=== PATIENT | female | born 1945 | race Caucasian/White ===

== ENCOUNTER 2017-05-26 18:26 | Emergency (ER) | payer MEDICARE, SELFPAY | END 2017-05-26 22:50 | disposition home or self-care (01) | PROVIDERS: Emergency Provider Emergency Medicine; Family Provider Internal Medicine Adolescent Medicine; Visit Provider Emergency Medicine | DX: R07.9 Chest pain, unspecified (principal); R91.8 Other nonspecific abnormal finding of lung field; I25.2 Old myocardial infarction; I10 Essential (primary) hypertension; Z87.891 Personal history of nicotine dependence; I25.10 Atherosclerotic heart disease of native coronary artery without angina pectoris; J44.9 Chronic obstructive pulmonary disease, unspecified; F41.9 Anxiety disorder, unspecified; Z88.0 Allergy status to penicillin; Z79.899 Other long term (current) drug therapy | CPT/HCPCS: 71020; 71275; 80053; 82150; 82550; 82553; 83690; 83880; 84436; 84443; 84479; 84484; 85025; 85378; 93005; 93041; 96365; 96372; 96375; 96376; 99285; J2405 ==

== ENCOUNTER → 2017-06-29 14:32 | Outpatient (POV) | payer MEDICARE, SELFPAY ==
[2017-07-02 20:18] LABS: Blastomyces Antibody Negative (Neg:<1:1)
[2017-07-03 20:17] LABS: Aspergillus flavus Negative (Neg:<1:1); Aspergillus fumigatus Negative (Neg:<1:1)
[2017-07-04 19:21] LABS: Aspergillus niger Negative (Neg:<1:1)
== END ==
PROVIDERS: Family Provider Internal Medicine Adolescent Medicine; PCP Internal Medicine Adolescent Medicine; Visit Provider Internal Medicine
DX: R91.1 Solitary pulmonary nodule (principal)
CPT/HCPCS: 36415; 86171

== ENCOUNTER 2017-08-02 19:44 | Emergency (ER) | payer MEDICARE, SELFPAY ==
[2017-08-02 19:45] VITALS: BP 158/63; PULSE 58; RESP 18; TEMP 36.8; O2SAT 98; BMI 39.4
--- NOTE | 2017-08-02 19:58 | XR_ITS ---
XR chest 2V HISTORY: Shortness of breath ITS.REASON: sob ORDERING PHYSICIAN: Desean Gallegos MD PATIENT AGE: 72 years COMPARISON: 05/26/2017 FINDINGS: The cardiomediastinal silhouette and pulmonary vascularity are within normal limits. COPD. Biapical fibrotic change. No lobar consolidation or collapse.. Degenerative change thoracic spine IMPRESSION: COPD. No change with no acute finding.
[2017-08-02 20:34] LABS: Basophils # 0.1 K/mm3 (0-0.2); Basophils % 0.6 % (0.1-2.0); Eosinophils # 0.5 K/mm3 (0.0-0.4); Eosinophils % 5.1 % (0.1-12.0); Hematocrit 43.8 % (37.0-47.0); Hemoglobin 13.2 g/dL (12.2-16.2); Lymphocytes % 29.7 K/mm3 (10-50); Mean Corpuscular HGB Conc 30.2 g/dL (31.8-35.4); Mean Corpuscular Hemoglobin 24.8 pg (27.0-31.2); Mean Corpuscular Volume 82.1 fl (81-99); Mean Platelet Volume 8.6 fl (7.4-10.4); Monocytes # 0.6 K/mm3 (0.1-1.0); Monocytes % 5.4 % (1.7-9.3); Neutrophils # 6.1 K/mm3 (1.8-7.8); Neutrophils % 59.4 % (37.0-80.0); Platelet Count 167 K/mm3 (142-424); Red Blood Count 5.33 M/mm3 (4.20-5.40); Red Cell Distribution Width 13.6 % (11.5-17.5); White Blood Count 10.3 K/mm3 (4.8-10.8)
[2017-08-02 20:37] LABS: Anion Gap 8.9 mEq/L (5-15); Blood Urea Nitrogen 15 mg/dL (7-18); Carbon Dioxide 35 mmol/L (21.0-32.0); Chloride 102 mmol/L (98-107); Creatinine Clearance Estimated 69 mL/min (0-300); Creatinine,Serum 0.68 mg/dL (0.55-1.02); Estimated Glomerular Filt Rate 85 ml/min (>60); GFR (African American) 103 ML/MIN (>60); Glucose 98 mg/dL (74-106); Potassium 3.9 mmoL/L (3.5-5.1); Sodium 142 mmol/L (136-145)
--- NOTE | 2017-08-02 20:38 | [facility].EDCP ---
ED Disposition Clinical Impression: Adenocarcinoma of right lung, stage 1 Chest pain Qualifiers: Chest pain type: unspecified Qualified Code(s): R07.9 - Chest pain, unspecified Disposition: Xfer Short-Term Hosp Condition on Discharge: Good Forms: Transfer Record - ED Time of Disposition: 23:40 - Critical Care Critical Care Time: No Attestation: On 08/02/17, the high probability of a clinically significant, sudden or life threatening deterioration of the following system(s) required my full and direct attention, intervention and personal management. The time I documented below is in addition to time spent performing reported procedures but includes the following listed in this critical care notation. Medical Decision Making - Medical Records Medical records reviewed: Yes: I reviewed the patient's medical records. Vital Signs: 08/02/17 19:45 08/02/17 20:45 08/02/17 22:00 Temperature 98.2 F Temperature Source Oral Pulse Rate [Right Radial] 58 L 57 L 65 Respiratory Rate 18 Blood Pressure [Right Arm] 158/63 137/66 132/70 Blood Pressure Mean [Right Arm] 94 89 90 Blood Pressure Source [Right Arm] Automatic Cuff Automatic Cuff Automatic Cuff Blood Pressure Position [Right Arm] Sitting 02 Sat by Pulse Oximetry 98 96 98 Oxygen Delivery Method Nasal Cannula Oxygen Flow Rate (LPM) 2 - Lab Data Lab results reviewed: Yes: I reviewed the patient's lab results. Lab Results 08/02/17 19:50: WBC 10.3, RBC 5.33, Hgb 13.2, Hct 43.8, MCV 82.1, MCH 24.8 L, MCHC 30.2 L, RDW 13.6, Plt Count 167, MPV 8.6, Neut % (Auto) 59.4, Lymph % (Auto) 29.7, [place] % (Auto) 5.4, Eos % (Auto) 5.1, Baso % (Auto) 0.6, Neut # (Auto) 6.1, Lymph # (Auto) 3.0, [place] # (Auto) 0.6, Eos # (Auto) 0.5 H, Baso # (Auto) 0.1 08/02/17 19:50: Sodium 142, Potassium 3.9, Chloride 102, Carbon Dioxide 35 H, Anion Gap 8.9, BUN 15, Creatinine 0.68, Estimated Creat Clear 69, Estimated GFR 85, Est GFR ( Amer) 103, Glucose 98 08/02/17 19:50: Lactic Acid 0.6 08/02/17 19:50: Total Creatine Kinase 82, CK-MB (CK-2) 1.1, CK-MB (CK-2) Rel Index 1.3, Troponin I < 0.02 08/02/17 23:03: Total Creatine Kinase 67, CK-MB (CK-2) 1.0, CK-MB (CK-2) Rel Index 1.5, Troponin I < 0.02 Result diagrams: 08/02/17 19:50 08/02/17 19:50 Orders (Tests/Meds): ED MEDICATIONS Discontinued Medications Generic Name Dose Route Start Last Admin Trade Name Freq PRN Reason Stop Dose Admin Albuterol/Ipratropium 3 ml 08/02/17 19:58 08/02/17 20:07 Duoneb 3ml Neb IH 08/02/17 19:59 3 ml ONCE ONE Administration Aspirin 324 mg 08/02/17 19:57 08/02/17 20:00 Aspirin 81mg Chewable Tablet PO 08/02/17 19:58 324 mg ONCE ONE Administration Methylprednisolone Sodium Succinate 125 mg 08/02/17 19:58 08/02/17 20:07 Solu-Medrol 125mg/2ml Vial IV 08/02/17 19:59 125 mg ONCE ONE Administration ORDERS Category Date Time Status Blood Culture Stat Micro 08/02/17 19:50 Received - Radiology Data #1 Image(s): Chest Image Reviewed: Yes I reviewed the patient's radiology image right lung mass c/w tumor - ECG Data Tracing #1 I reviewed this ECG and interpreted as documented below: ECG normal with no acute: arrhythmias, ischemia, conduction abnormalities, chamber hypertrophy Normal Sinus Rhythm: Yes - Morgan Inquiry Pt receiving controlled substance: No - Reevaluation(s) Time: 23:30 Reevaluation #1: case d/w Dr Angeles, [facility], advise of patient's presentation and findings, need to start radiation therapy at [facility] tomorrow morning. Dr. Angeles agreeable with transfer, patient is medically stable at this time. Chest Pain HPI - General Chief Complaint: Chest Pain Stated Complaint: chest pain Mode of Arrival: Ambulatory Limitations: No Limitations Description of Symptoms (Recalled from ER Triage Doc. by RN): chest pain, cough, oxygen - History of Present Illness HPI narrative: This i
[2017-08-02 20:45] VITALS: BP 137/66; PULSE 57; O2SAT 96
[2017-08-02 20:46] LABS: Lactic Acid 0.6 mmol/L (0.4-2.0)
[2017-08-02 22:00] VITALS: BP 132/70; PULSE 65; O2SAT 98
[2017-08-02 22:12] LABS: CKMB Relative Index 1.3 U/L (0-4.0); Creatine Kinase 82 U/L (26-192); Creatine Kinase MB 1.1 mg/ml (0.0-3.6)
[2017-08-02 22:13] LABS: Troponin I < 0.02 ng/ml (0.00-0.06)
[2017-08-03 00:16] LABS: CKMB Relative Index 1.5 U/L (0-4.0); Creatine Kinase 67 U/L (26-192); Troponin I < 0.02 ng/ml (0.00-0.06)
--- NOTE | 2017-08-03 01:39 | PC.NURSE ---
REPORT CALLED TO ROBERT JOLLY, RECEIVING RN AT ED. PT PENDING TRANSFER UPON [facility].
[2017-08-03 02:20] VITALS: BP 138/78; PULSE 98; RESP 22; TEMP 36.1; O2SAT 96
== END 2017-08-03 02:20 | disposition short-term general hospital (02) ==
PROVIDERS: Emergency Medicine; Emergency Provider Emergency Medicine; Family Provider Internal Medicine Adolescent Medicine; PCP Internal Medicine Adolescent Medicine
DX: C34.91 Malignant neoplasm of unspecified part of right bronchus or lung (principal); J44.9 Chronic obstructive pulmonary disease, unspecified; Z99.81 Dependence on supplemental oxygen; I25.10 Atherosclerotic heart disease of native coronary artery without angina pectoris; I10 Essential (primary) hypertension; E78.5 Hyperlipidemia, unspecified; Z95.5 Presence of coronary angioplasty implant and graft; F17.210 Nicotine dependence, cigarettes, uncomplicated; Z79.82 Long term (current) use of aspirin; Z79.899 Other long term (current) drug therapy; Z88.0 Allergy status to penicillin; Z88.2 Allergy status to sulfonamides
CPT/HCPCS: 36415; 71046; 80048; 82550; 82553; 83605; 84484; 85025; 87040; 93005; 96374; 99284

== ENCOUNTER → 2017-08-27 16:40 | Outpatient (CLI) | payer MEDICARE, SELFPAY ==
--- NOTE | 2017-08-27 16:51 | XR_ITS ---
XR chest 2V HISTORY: ITS.REASON: COPD, SHORTNESS OF BREATH ORDERING PHYSICIAN: Mariola Son PATIENT AGE: 72 years COMPARISON: 08/02/2017 FINDINGS: Unremarkable cardiovascular structures. A 15 mm nodules present in the right lung base corresponding to the nodule seen on recent scan of 05/26/2017. There are some patchy density in the left lung base in the retrocardiac region may be due to an area of atelectasis or infiltrate. Chronic changes are present with hyperinflation.. IMPRESSION: 1. Suspicious 15 mm nodule in the right middle lobe. 2. Atelectasis or infiltrate in the left lung base
[2017-08-27 17:04] LABS: Basophils # 0.1 K/mm3 (0-0.2); Basophils % 0.8 % (0.1-2.0); Eosinophils # 0.4 K/mm3 (0.0-0.4); Hematocrit 42.1 % (37.0-47.0); Lymphocytes # 1.4 K/mm3 (0.7-4.5); Lymphocytes % 19.8 K/mm3 (10-50); Mean Corpuscular HGB Conc 30.9 g/dL (31.8-35.4); Mean Platelet Volume 11.4 fl (7.4-10.4); Monocytes # 0.3 K/mm3 (0.1-1.0); Monocytes % 4.6 % (1.7-9.3); Neutrophils # 4.9 K/mm3 (1.8-7.8); Neutrophils % 68.7 % (37.0-80.0); Platelet Count 212 K/mm3 (142-424); White Blood Count 7.1 K/mm3 (4.8-10.8)
[2017-08-27 18:28] LABS: Alanine Aminotransferase 31 U/L (12-78); Albumin Level 3.6 gm/dL (3.4-5.0); Albumin/Globulin Ratio 1.2 (1.1-1.8); Alkaline Phosphatase 101 U/L (46-116); Anion Gap 11.3 mEq/L (5-15); Aspartate Amino Transferase 18 U/L (15-37); Bilirubin,Total 0.5 mg/dL (0.2-1.0); Blood Urea Nitrogen 16 mg/dL (7-18); Calcium 8.9 mg/dL (8.5-10.1); Carbon Dioxide 30 mmol/L (21.0-32.0); Chloride 99 mmol/L (98-107); Creatinine,Serum 0.49 mg/dL (0.55-1.02); Estimated Glomerular Filt Rate 124 ml/min (>60); GFR (African American) 150 ML/MIN (>60); Glucose 90 mg/dL (74-106); Potassium 4.3 mmoL/L (3.5-5.1); Sodium 136 mmol/L (136-145); Total Protein,Serum 6.6 gm/dL (6.4-8.2)
== END ==
PROVIDERS: PCP Internal Medicine Adolescent Medicine; Visit Provider Nurse Practitioner Family
DX: J44.1 Chronic obstructive pulmonary disease with (acute) exacerbation (principal); R06.02 Shortness of breath
CPT/HCPCS: 36415; 71046; 80053; 85025

== ENCOUNTER → 2017-10-01 09:58 | Outpatient (CLI) | payer MEDICARE, SELFPAY ==
[2017-10-01 10:58] VITALS: PULSE 49; PULSE 50
== END ==
PROVIDERS: Family Provider Internal Medicine Adolescent Medicine; PCP Internal Medicine Adolescent Medicine; Visit Provider Internal Medicine Adolescent Medicine
DX: J44.9 Chronic obstructive pulmonary disease, unspecified (principal)
CPT/HCPCS: 94060; 94640; 94726; 94729

== ENCOUNTER → 2017-10-09 07:44 | Outpatient (CLI) | payer MEDICARE, SELFPAY ==
--- NOTE | 2017-10-09 07:44 | CA_ITS ---
PROCEDURE: 2-D M-mode and color Doppler study INDICATIONS FOR THE TEST: Chest pain COPD Heart Murmur Tobacco Smoking Palpitations Fatigue Syncope Edema Hypertension+Diabetes Mellitus Rheumatic Fever SOB+LUNSFORD Obesity+Hyperlipidemia+ Family History HD Additional History PRE-OP LUNG CA, HOME O2, S/P RADIATION PATIENT INFORMATION HEIGHT: 68 WEIGHT:193 GENDER: Female B/P:126/56 2-D/M-MODE INTERPRETATION: 2-D MEASUREMENTS OBSERVED VALUES IN CMS Right Ventricular Dimension (RVDd) 2.4 Interventricular Septum (Thickness)(IVsd) 1.6 Left Ventricular Internal Dimensions(LVIDd) 4.2 Left Ventricular Posterior Wall (Thickness)(LVPWd) 1.3 Aortic Root 3.3 Aortic Cusp Separation 1.8 Left Atrial Dimensions (LAD) 4.3 2D 1. Left atrium is mildly enlarged, left ventricle is normal size, mild concentric left ventricular hypertrophy, visually estimated ejection fraction 55% with no obvious regional wall motion abnormality. 2. The right atrium and right ventricle are mildly enlarged with normal contractility. 3. The aortic valve is thickened and calcified display mobility. 4. The mitral valve has mitral annular calcification, leaflets are minimally thickened. 5. The tricuspid valve is structurally normal. 6. No significant pericardial effusion noted. DOPPLER INTERROGATION: Doppler interrogation of the aortic, mitral and tricuspid valvular presence of mild aortic, mild mitral and tricuspid regurgitation, tricuspid regurgitant jet velocity insufficient for calculation of the right ventricular systolic pressure, grade 1 diastolic dysfunction seen with tissue Doppler evidence of raised left atrial pressure. CONCLUSION: 1. Mildly enlarged left atrium, normal left ventricular size, mild concentric left ventricular hypertrophy, visually estimated ejection fraction 55% with no obvious regional wall motion abnormality, grade 1 diastolic dysfunction seen with tissue Doppler evidence of raised left atrial pressure. 2. Mild aortic, mild mitral and tricuspid regurgitation 3. No significant pericardial effusion noted.
== END ==
PROVIDERS: Family Provider Internal Medicine Adolescent Medicine; PCP Internal Medicine Adolescent Medicine; Visit Provider Internal Medicine
DX: R06.02 Shortness of breath (principal)
CPT/HCPCS: 93306

== ENCOUNTER → 2018-04-15 16:29 | Outpatient (CLI) | payer MEDICARE, SELFPAY ==
--- NOTE | 2018-04-15 16:34 | XR_ITS ---
EXAM: XR thoracic spine 3V HISTORY: ITS.REASON: PAIN, NO INJURY Comparison: 03/07/2018 FINDINGS: Normal alignment. No fracture or dislocation. No lytic or blastic change. There is mild wedging of T11 and T12 which is similar compared to the prior lateral chest radiograph 03/07/2018 as well as an older chest CT scan of 05/26/2017. There is mild degenerative disc disease upper and lower thoracic spine with mild kyphosis of the lower thoracic spine. No lytic or blastic changes. IMPRESSION: No acute finding. Mild degenerative changes
== END ==
PROVIDERS: PCP Internal Medicine Adolescent Medicine; Visit Provider Nurse Practitioner Family
DX: M54.6 Pain in thoracic spine (principal)
CPT/HCPCS: 72072

== ENCOUNTER → 2018-05-17 14:53 | Outpatient (CLI) | payer MEDICARE, SELFPAY ==
[2018-05-17 15:20] LABS: Basophils # 0.1 K/mm3 (0-0.2); Basophils % 0.6 % (0.1-2.0); Eosinophils # 0.1 K/mm3 (0.0-0.4); Eosinophils % 1.4 % (0.1-12.0); Hematocrit 37.1 % (37.0-47.0); Hemoglobin 11.4 g/dL (12.2-16.2); Lymphocytes # 1.7 K/mm3 (0.7-4.5); Lymphocytes % 20.4 % (10-50); Mean Corpuscular HGB Conc 30.8 g/dL (31.8-35.4); Mean Corpuscular Hemoglobin 24.3 pg (27.0-31.2); Mean Platelet Volume 10.1 fl (7.4-10.4); Monocytes # 0.5 K/mm3 (0.1-1.0); Monocytes % 5.2 % (1.7-9.3); Neutrophils # 6.2 K/mm3 (1.8-7.8); Neutrophils % 72.4 % (37.0-80.0); Platelet Count 197 K/mm3 (142-424); Red Blood Count 4.69 M/mm3 (4.20-5.40); Red Cell Distribution Width 14.6 % (11.5-17.5); White Blood Count 8.5 K/mm3 (4.8-10.8)
[2018-05-17 19:07] LABS: Alanine Aminotransferase 20 U/L (12-78); Albumin Level 3.5 gm/dL (3.4-5.0); Albumin/Globulin Ratio 1.2 (1.1-1.8); Alkaline Phosphatase 67 U/L (46-116); Anion Gap 11.9 mEq/L (5-15); Aspartate Amino Transferase 13 U/L (15-37); Bilirubin,Total 0.3 mg/dL (0.2-1.0); Blood Urea Nitrogen 9 mg/dL (7-18); Calcium 8.8 mg/dL (8.5-10.1); Carbon Dioxide 30 mmol/L (21.0-32.0); Chloride 103 mmol/L (98-107); Chol/HDL Ratio 2.1 (1-3.5); Cholesterol 126 mg/dL (140-200); Creatinine,Serum 0.67 mg/dL (0.55-1.02); Estimated Glomerular Filt Rate 87 ml/min (>60); GFR (African American) 105 ML/MIN (>60); Globulin 2.9 gm/dl (1.3-3.2); Glucose 83 mg/dL (74-106); HDL Cholesterol 59 mg/dL (29-89); LDL Cholesterol 40 mg/dL (0-130); Potassium 3.9 mmoL/L (3.5-5.1); Sodium 141 mmol/L (136-145); Total Protein,Serum 6.4 gm/dL (6.4-8.2); Triglycerides 136 mg/dL (30-200); VLDL Cholesterol 27 mg/dL (0-40)
[2018-05-19 06:21] LABS: Vitamin D 25 Hydroxy 27.8 ng/mL (30.0-100.0)
== END ==
PROVIDERS: Visit Provider Nurse Practitioner Family
DX: I10 Essential (primary) hypertension (principal); E78.5 Hyperlipidemia, unspecified; E55.9 Vitamin D deficiency, unspecified; J44.9 Chronic obstructive pulmonary disease, unspecified
CPT/HCPCS: 36415; 80053; 80061; 82652; 85025

== ENCOUNTER → 2018-05-24 10:18 | Outpatient (CLI) | payer MEDICARE, SELFPAY ==
--- NOTE | 2018-05-24 10:21 | MR_ITS ---
MR lumbar spine wo con, MR 3-d myelogram/MRCP HISTORY: Low back pain radiating into the right hip down the right knee ITS.REASON: LOW BACK PAIN, RIGHT LUMBAR RADICULITIS ORDERING PHYSICIAN: Stephanie Pierre PATIENT AGE: 72 years Comparison: 11/17/2016 TECHNIQUE: Standard multiplanar multiecho sequences are performed without contrast. 3-D MIP and myelographic images are also rendered and reviewed FINDINGS: The spinal cord ends at the L1 level. L1-L2, L2-L3, and L3-L4 have an unremarkable appearance. L4-5: There is minimal anterolisthesis of L4 of approximately 3 mm with mild bulging disc and mild facet and ligamentum hypertrophy resulting in mild bilateral lateral recess and foraminal narrowing. L5-S1: Unremarkable. No disc herniation or canal stenosis. IMPRESSION: There is minimal anterolisthesis of L4 on L5 of approximately 3 mm with mild bulging disc and mild facet and ligamentum hypertrophy resulting in mild bilateral lateral recess and foraminal narrowing at that level. Otherwise negative MRI of the lumbar spine. No disc herniation or canal stenosis
--- NOTE | 2018-05-24 10:21 | MR_ITS ---
MR thoracic spine wo con HISTORY: Mid back pain when standing ITS.REASON: PAIN IN THORACIC SPINE ORDERING PHYSICIAN: Stephanie Pierre PATIENT AGE: 72 years Comparison: None TECHNIQUE: Standard multiplanar multiecho sequences are performed without contrast. 3-D MIP and myelographic images are also rendered and reviewed FINDINGS: There is normal alignment. No acute fracture or dislocation is evident. There is mild kyphosis in the upper thoracic spine and lower thoracic spine. There are scattered T1 and T2 hyperintensities at T3, T4, T7, and T10 consistent with lipomas and/or lipid rich hemangiomas. No bony destructive process is evident. No disc herniation or canal stenosis. The spinal cord has an unremarkable appearance. There is some mild endplate irregularity at T9-T10 and T11. IMPRESSION: 1. No acute finding. 2. Mild degenerative changes with Benign-appearing hemangiomas/lipomas
== END ==
PROVIDERS: PCP Nurse Practitioner Family; Visit Provider Nurse Practitioner Family
DX: M54.5 Low back pain (principal); M54.6 Pain in thoracic spine; M54.16 Radiculopathy, lumbar region
CPT/HCPCS: 72146; 72148; 76376

== ENCOUNTER 2018-06-09 13:50 | Outpatient (RCR) | payer MEDICARE, SELFPAY | END 2018-07-09 13:42 | disposition home or self-care (01) | LOC: PT 13:50 | PROVIDERS: Visit Provider Internal Medicine Pulmonary Disease | DX: J44.9 Chronic obstructive pulmonary disease, unspecified (principal) ==

== ENCOUNTER 2018-06-18 18:53 | Observation (INO) ==
--- NOTE | 2018-06-18 19:03 | Emergency Department Note ---
ED Disposition Condition on Discharge: Fair - Critical Care Critical Care Time: No <Vladimir Davis - Last Filed: 06/18/18 20:07> <Andrés Gordillo - Last Filed: 06/18/18 21:20> Clinical Impression: Abdominal pain, lower, Colitis, Obesity (BMI 30-39.9) Diarrhea Qualifiers: Diarrhea type: unspecified type Qualified Code(s): R19.7 - Diarrhea, unspecified Disposition: Admitted As Inpatient Attestation: On 06/18/18, the high probability of a clinically significant, sudden or life threatening deterioration of the following system(s) required my full and direct attention, intervention and personal management. The time I documented below is in addition to time spent performing reported procedures but includes the following listed in this critical care notation. Medical Decision Making - Morgan Inquiry Pt receiving controlled substance: No - Lab Data Result diagrams: 06/18/18 18:55 06/18/18 18:55 <Vladimir Davis - Last Filed: 06/18/18 20:07> - Lab Data Result diagrams: 06/18/18 18:55 06/18/18 18:55 <Andrés Gordillo - Last Filed: 06/18/18 21:20> Vital Signs: 06/18/18 18:55 06/18/18 19:30 06/18/18 19:53 Temperature 99.5 F Temperature Source Oral Pulse Rate [Right Brachial] 78 82 77 Respiratory Rate 20 20 18 Blood Pressure [Right Arm] 134/59 L 122/54 L 118/55 L Blood Pressure Mean [Right Arm] 84 76 76 Blood Pressure Source [Right Arm] Automatic Cuff Automatic Cuff Automatic Cuff Blood Pressure Position [Right Arm] Sitting Sitting Sitting 02 Sat by Pulse Oximetry 96 97 96 Oxygen Delivery Method Room Air Nasal Cannula Nasal Cannula Oxygen Flow Rate (LPM) 2 2 06/18/18 20:17 06/18/18 20:19 06/18/18 20:38 Temperature Temperature Source Pulse Rate [Right Brachial] 71 72 78 Respiratory Rate 20 16 16 Blood Pressure [Right Arm] 152/80 H 146/80 H 148/58 H Blood Pressure Mean [Right Arm] 104 102 88 Blood Pressure Source [Right Arm] Automatic Cuff Blood Pressure Position [Right Arm] Sitting 02 Sat by Pulse Oximetry 96 99 98 Oxygen Delivery Method Room Air Nasal Cannula Nasal Cannula Oxygen Flow Rate (LPM) 2 2 - Lab Data Lab Results 06/18/18 18:55: WBC 17.8 H, RBC 4.77, Hgb 12.0 L, Hct 36.6 L, MCV 76.7 L, MCH 25.3 L, MCHC 32.9, RDW 14.3, Plt Count 203, MPV 10.8 H, Neut % (Auto) 84.0 H, Lymph % (Auto) 11.5, [place] % (Auto) 4.1, Eos % (Auto) 0.1, Baso % (Auto) 0.2, Neut # (Auto) 14.9 H, Lymph # (Auto) 2.1, [place] # (Auto) 0.7, Eos # (Auto) 0.0, Baso # (Auto) 0.0, Total Counted 100, Neutrophils % (Manual) 85 H, Band Neutrophils % 4.0, Lymphocytes % (Manual) 7 L, Monocytes % (Manual) 4, Platelet Estimate Normal, Microcytosis 1+, Rouleaux 2+ 06/18/18 18:55: Sodium 132 L, Potassium 3.3 L, Chloride 94 L, Carbon Dioxide 27, Anion Gap 14.3, BUN 12, Creatinine 0.80, Estimated Creat Clear 71, Estimated GFR 71, Est GFR ( Amer) 85, Glucose 100, Calcium 8.6, Total Bilirubin 0.5, AST 17, ALT 24, Alkaline Phosphatase 85, Total Protein 7.4, Albumin 3.1 L, Globulin 4.3 H, Albumin/Globulin Ratio 0.7 L 06/18/18 18:55: ESR 88 H 06/18/18 18:55: C-Reactive Protein 58.3 H, Amylase 55, Lipase 125 06/18/18 19:00: Influenza Type A Ag Negative, Influenza Type B Ag Negative 06/18/18 19:10: Lactate 0.5 06/18/18 19:10: Stool Occult Blood Negative 06/18/18 19:10: Troponin I < 0.02 Orders (Tests/Meds): ED MEDICATIONS Generic Name Dose Route Start Last Admin Trade Name Freq PRN Reason Stop Dose Admin Piperacillin Sod/Tazobactam 100 mls @ 200 mls/hr 06/18/18 21:15 06/18/18 21:17 Sod 4.5 gm/ Sodium Chloride IV 07/02/18 21:14 200 mls/hr Q6H MARI Administration Protocol Metronidazole 500 mg in 100 mls @ 100 mls/hr 06/18/18 21:15 Flagyl 500mg/100ml Ivpb IV 07/02/18 21:14 Q8H [facility] Protocol Discontinued Medications Generic Name Dose Route Start Last Admin Trade Name Daron PRN Reason Stop Dose Admin Iopamidol 75 ml 06/18/18 19:47 06/18/18 20:03 [id number]; 75ml Vial IV 06/18/18 19:48 75 ml ONCE ONE Administration Protocol Morphine Sulfate 4 mg 06/18/18 20:13 06/18/18 20:17 Morphine 4mg/Ml Syringe IV 06/18/18 20:14 4 mg ONCE ONE Administration Ondansetron HCl 4 mg 06/18/18 20:13 06/18/18 20:17 Zofran 4mg/2ml Vial IV 06/18/18 20:14 4 mg ONCE ONE Administration Sodium Chloride 10 ml 06/18/18 19:47 06/18/18 20:03 Rad-Saline Flush 10ml Syringe IV 06/18/18 19:48 10 ml ONCE ONE Administration ORDERS Category Date Time Status CT abdomen pelvis w con Stat Cat Scan 06/18/18 19:18 Taken Diarrhea Panel, PCR Stat Lab 06/18/18 19:05 Ordered Occult Blood,Stool Stat Lab 06/18/18 19:10 Ordered UA [Urinalysis and Microscopic] Stat Lab 06/18/18 19:13 Ordered Blood Culture Stat Micro 06/18/18 19:10 Received Medical Decision Narrative: 8:00 PM: At shift change, I have discussed the patient with Dr. Gordillo, who will assume care of the patient at this time. I have discussed all clinical information including history, physical and diagnostic study results. Preliminary diagnoses based on information available at this point have been recorded by me. Controlled substance administration and critical care statement are also preliminary, as of the time of handoff. (Vladimir Davis) General Adult HPI <Vladimri Davis - Last Filed: 06/18/18 20:07> <Andrés Gordillo - Last Filed: 06/18/18 21:20> - General Stated complaint: ABD pain Time Seen by Provider: 06/18/18 19:03 - History of Present Illness HPI narrative: States she has been sick all this week since Thursday 5 days ago. She has lower abdominal/suprapubic abdominal pain. Profuse diarrhea, says it is black. Fever up to 101 degrees yesterday. Nausea, but no vomiting. States she takes Phenergan and therefore she does not vomit. Started taking leftover antibiotic this morning, Cipro. Otherwise, no recent antibiotics. States has prior history of diverticulitis. Has chronic low back pain. Denies urinary symptoms. Feels weak. (Vladimir Davis) - Related Data Home Medications Medication Instructions Recorded Confirmed aspirin 81 mg tablet,delayed 81 mg PO QDAY 06/29/17 04/20/18 release bisoprolol 5 1 tab PO QDAY 06/29/17 04/20/18 mg-hydrochlorothiazide 6.25 mg tablet indacaterol 75 mcg capsule with 1 cap INHALATION QDAY 06/29/17 04/20/18 inhalation device pregabalin 150 mg capsule 150 mg PO BID 06/29/17 04/20/18 simvastatin 20 mg tablet 20 mg PO QAM 06/29/17 04/20/18 Montelukast Sodium [Montelukast 10 mg PO HS 03/07/18 04/20/18 10mg Tab] albuterol sulfate HFA 90 1 puff INHALATION Q6H PRN 04/20/18 04/20/18 mcg/actuation aerosol inhaler benzonatate 200 mg capsule 200 mg PO TID PRN 04/20/18 04/20/18 diazepam 5 mg tablet 5 mg PO QHS PRN 04/20/18 04/20/18 fluticasone furoate 100 1 inh INHALATION DAILY 04/20/18 04/20/18 mcg/actuation blister powder for inhalation multivit with 1 tab PO DAILY 04/20/18 04/20/18 [id number] 8 mg iron-400 mcg-300 mcg tablet pantoprazole 40 mg tablet,delayed 40 mg PO DAILY tab 04/20/18 04/20/18 release Previous Rx's Medication Instructions Recorded nitroglycerin 0.4 mg sublingual 0.4 mg SUBLINGUAL Q5M PRN #25 tab 05/28/18 tablet Allergies Allergy/AdvReac Type Severity Reaction Status Date / Time nitrofurantoin Allergy Unknown Verified 06/18/18 19:20 [From MACROBID] nylon [NYLON] Allergy Unknown I-RASH Verified 06/18/18 19:20 Penicillins Allergy Unknown I-RASH Verified 06/18/18 19:20 Sulfa (Sulfonamide Allergy Unknown I-RASH Verified 06/18/18 19:20 Antibiotics) [facility] History I have reviewed the patient's past medical history: Yes Medical History: Reports:: Cancer, Chronic Obstructive Pulmonary Disease (COPD), Coronary Artery Disease, Home Oxygen, Hyperlipidemia, Hypertension Denies:: Diabetes Mellitus Type 1, Diabetes Mellitus Type 2, MRSA Other Medical History: Reports: Arthritis Other Surgeries: Yes: Angioplasty, Coronary Stent, Hysterectomy-Total, Other Amputation: No Fractures: Yes (right knee , left elbow) - Social History Smoking Status: Former smoker Tobacco Type: e-cigarettes Alcohol Intake: never Alcohol Intake Frequency:: other Family Hx:: Coronary Artery Disease <Vladimir Davis - Last Filed: 06/18/18 20:07> - Hepatitis A Screen Attestation statement:: This patient has been screened for Hepatitis A risk factors. ROS Obtained: Yes All systems reviewed & no additional complaints - Constitutional Constitutional: Reports fever(s), Reports weakness - Cardiovascular Cardiovascular: Denies chest pain - Respiratory Respiratory: No dyspnea - Gastrointestinal Gastrointestingal: Reports: abdominal pain, change in stool character, diarrhea, nausea. Denies: vomiting - Genitourinary Female Genitourinary: Denies difficulty voiding - Musculoskeletal Musculoskeletal: Reports back pain <Vladimir Davis - Last Filed: 06/18/18 20:07> Physical Exam - General General appearance: alert, in no apparent distress - Head Head exam: atraumatic, normocephalic - Eye Eye exam: Present: normal appearance, PERRL, EOMI - ENT ENT exam: Present: mucous membranes moist - Neck Neck exam: Present: normal inspection, trachea midline - Chest Chest inspection: Present: normal inspection, symmetric chest wall rise - Respiratory Respiratory exam: Present: normal lung sounds bilaterally. Absent: respiratory distress - Cardiovascular Cardiovascular exam: Present: regular rate, normal rhythm, normal heart sounds - Abdominal Exam Abdominal exam: Present: soft, distention, tenderness. Absent: guarding, rebound, rigidity Abdominal tenderness: Present: diffuse - Rectal Exam Rectal exam: Present: normal inspection, normal rectal tone, other (no stool pr esent. Mucous clear.). Absent: black stool, bloody stool, mass - Extremities Exam Extremities exam: Present: normal inspection - Neurological Exam Neurological exam: Present: alert, oriented X3 - Psychiatric Psychiatric exam: Present: normal affect, normal mood - Skin Skin exam: Present: warm, dry <Vladimir Davis - Last Filed: 06/18/18 20:07>
[2018-06-18 19:09] LABS: Basophils % 0.2 % (0.1-2.0); Eosinophils % 0.1 % (0.1-12.0); Hematocrit 36.6 % (37.0-47.0); Lymphocytes # 2.1 K/mm3 (0.7-4.5); Lymphocytes % 11.5 % (10-50); Mean Corpuscular HGB Conc 32.9 g/dL (31.8-35.4); Mean Corpuscular Hemoglobin 25.3 pg (27.0-31.2); Mean Corpuscular Volume 76.7 fl (81-99); Mean Platelet Volume 10.8 fl (7.4-10.4); Monocytes # 0.7 K/mm3 (0.1-1.0); Monocytes % 4.1 % (1.7-9.3); Neutrophils # 14.9 K/mm3 (1.8-7.8); Platelet Count 203 K/mm3 (142-424); Red Blood Count 4.77 M/mm3 (4.20-5.40); Red Cell Distribution Width 14.3 % (11.5-17.5); White Blood Count 17.8 K/mm3 (4.8-10.8)
[2018-06-18 19:16] LABS: Albumin Level 3.1 gm/dL (3.4-5.0); Albumin/Globulin Ratio 0.7 (1.1-1.8); Anion Gap 14.3 mEq/L (5-15); Bilirubin,Total 0.5 mg/dL (0.2-1.0); Calcium 8.6 mg/dL (8.5-10.1); Globulin 4.3 gm/dl (1.3-3.2); Potassium 3.3 mmoL/L (3.5-5.1); Total Protein,Serum 7.4 gm/dL (6.4-8.2)
[2018-06-18 19:37] LABS: C-Reactive Protein 58.3 mg/L (0.0-0.9)
[2018-06-18 19:42] LABS: Lymphocytes % 7 % (10-50); Monocytes % 4 % (2-9); Neutrophils % 85 % (42-76); Rouleaux 2+; Total Cells Counted 100
[2018-06-19 03:23] LABS: Microscopic, Urine URINE MICROSCOPIC (MICROSCOPIC)
[2018-06-19 03:32] LABS: Appearance,Urine CLEAR (Clear); Blood, Urine 1+ (Negative); Color,Urine YELLOW (Yellow); Glucose,Urine (UA) Negative (Negative); Ketones,Urine 3+ (Negative); Leukocyte Esterase,Urine Negative (Negative); Protein,Urine TRACE (Negative)
[2018-06-19 03:53] LABS: Bilirubin,Urine Negative (Negative)
[2018-06-19 03:54] LABS: Amorphous Sediment,Urine Trace /lpf; WBC,Urine Occasional #/hpf (0-3)
[2018-06-19 06:22] LABS: Basophils % 0.3 % (0.1-2.0); Eosinophils % 0.3 % (0.1-12.0); Hematocrit 34.5 % (37.0-47.0); Lymphocytes # 1.9 K/mm3 (0.7-4.5); Lymphocytes % 14.4 % (10-50); Mean Corpuscular HGB Conc 30.9 g/dL (31.8-35.4); Mean Corpuscular Hemoglobin 24.2 pg (27.0-31.2); Mean Corpuscular Volume 78.2 fl (81-99); Mean Platelet Volume 10.2 fl (7.4-10.4); Monocytes # 0.6 K/mm3 (0.1-1.0); Monocytes % 4.6 % (1.7-9.3); Neutrophils # 10.6 K/mm3 (1.8-7.8); Neutrophils % 80.5 % (37.0-80.0); Platelet Count 183 K/mm3 (142-424); Red Blood Count 4.41 M/mm3 (4.20-5.40); Red Cell Distribution Width 14.2 % (11.5-17.5); White Blood Count 13.1 K/mm3 (4.8-10.8)
[2018-06-19 07:32] LABS: Anion Gap 13.4 mEq/L (5-15); Potassium 3.4 mmoL/L (3.5-5.1)
[2018-06-19 07:36] LABS: Hemoglobin 10.8 g/dL (12.2-16.2)
[2018-06-19 07:42] LABS: Calcium 7.6 mg/dL (8.5-10.1)
--- NOTE | 2018-06-19 09:43 | History & Physical Report ---
*Admission Date: 06/18/18 *Chief complaint: Abdominal pain and diarrhea *History of present illness: 72-year-old female with multiple comorbidities who presents with abdominal pain, nausea, diarrhea since Thursday. States she has had right and left lower quadrant abdominal discomfort, cramping, feeling feverish and chilling. She has not had alana emesis due to taking Zofran. Reports initially having significant loose stools for the first couple days and is now simply having mucus every time she sits down on the toilet since approximately . Has not eaten very much in the past several days. In the ER she was started on antibiotics for colitis/diverticulitis that was seen on abdominal CT. Labs on admission significant for mild hyponatremia, hypochloremia, leukocytosis. Admitted to medicine for further management. Denies syncope, headache, chest pain, shortness of breath [facility] History I have reviewed the patient's past medical history: Yes Medical History: Reports:: Cancer (LUNG CANCER), Chronic Obstructive Pulmonary Disease (COPD), Coronary Artery Disease, Home Oxygen, Hyperlipidemia, Hypertension Denies:: Diabetes Mellitus Type 1, Diabetes Mellitus Type 2, MRSA Have you ever received a pneumonia vaccine?: Yes Have you received a flu vaccine this season?: Yes Other Medical History: Reports: Arthritis Other Surgeries: Yes: Angioplasty, Coronary Stent, Hysterectomy-Total, Other Amputation: No Fractures: Yes (right knee , left elbow) - *Social History Educational Level: Completed High School Smoking Status: Former smoker Tobacco Type: cigarettes # Packs/Day (cigarettes): 2 #Yrs smoked (if former smoker): 50 Alcohol Intake: never Alcohol Intake Frequency:: other Occupational Status: disabled Travel in the last 8 weeks: None - Psychiatric History Expresses thoughts of harming self/others: None Suicide Plan Description: No Plan *Family Hx:: Coronary Artery Disease Review of Systems - Review of Systems Review of systems:: pertinent systems reviewed and negative unless documented below - *Neurologic Reports weakness Meds Home Medications Medication Instructions Recorded Confirmed Type aspirin 81 mg tablet,delayed 81 mg PO HS 06/29/17 06/18/18 History release bisoprolol 5 1 tab PO QDAY 06/29/17 06/18/18 History mg-hydrochlorothiazide 6.25 mg tablet pregabalin 150 mg capsule 150 mg PO BID 06/29/17 06/18/18 History simvastatin 20 mg tablet 20 mg PO HS 06/29/17 06/18/18 History Montelukast Sodium [Montelukast 10 mg PO HS 03/07/18 06/18/18 History 10mg Tab] albuterol sulfate HFA 90 2 puff INHALATION Q6H PRN 04/20/18 06/18/18 History mcg/actuation aerosol inhaler benzonatate 200 mg capsule 200 mg PO TID PRN 04/20/18 06/18/18 History diazepam 5 mg tablet 5 mg PO NEEDED PRN 04/20/18 06/18/18 History fluticasone furoate 100 1 inh INHALATION DAILY 04/20/18 06/18/18 History mcg/actuation blister powder for inhalation multivit with 1 tab PO DAILY 04/20/18 06/18/18 History qpgardkx-gupa-BP-lutein 8 mg iron-400 mcg-300 mcg tablet pantoprazole 40 mg tablet,delayed 40 mg PO DAILY tab 04/20/18 06/18/18 History release nitroglycerin 0.4 mg sublingual 0.4 mg SUBLINGUAL Q5M PRN #25 tab 05/28/18 06/18/18 Rx tablet Albuterol Sulfate [Albuterol 1.25 mg IH Q4HP PRN 06/18/18 06/18/18 History 0.042% 1.25mg/3mL neb] Alendronate Sodium 1 tab PO WEEKLY 06/18/18 06/18/18 History Tiotropium Br/Olodaterol HCl 2 sprays INHALATION DAILY 06/18/18 06/18/18 History [Stiolto Respimat Inhal [place]] Allergies Allergy/AdvReac Type Severity Reaction Status Date / Time nitrofurantoin Allergy Unknown Verified 06/18/18 19:20 [From MACROBID] nylon [NYLON] Allergy Unknown I-RASH Verified 06/18/18 19:20 Penicillins Allergy Unknown I-RASH Verified 06/18/18 19:20 Sulfa (Sulfonamide Allergy Unknown I-RASH Verified 06/18/18 19:20 Antibiotics) Exam Vital signs and Labs for Last 24 Hours: Temp Pulse Resp BP Pulse Ox 98.6 F 79 20 117/70 90 L 06/19/18 08:00 06/19/18 08:00 06/19/18 08:00 06/19/18 08:00 06/19/18 08:00 Laboratory Results - last 24 hr 06/18/18 18:55: WBC 17.8 H, RBC 4.77, Hgb 12.0 L, Hct 36.6 L, MCV 76.7 L, MCH 25.3 L, MCHC 32.9, RDW 14.3, Plt Count 203, MPV 10.8 H, Neut % (Auto) 84.0 H, Lymph % (Auto) 11.5, [place] % (Auto) 4.1, Eos % (Auto) 0.1, Baso % (Auto) 0.2, Neut # (Auto) 14.9 H, Lymph # (Auto) 2.1, [place] # (Auto) 0.7, Eos # (Auto) 0.0, Baso # (Auto) 0.0, Total Counted 100, Neutrophils % (Manual) 85 H, Band Neutrophils % 4.0, Lymphocytes % (Manual) 7 L, Monocytes % (Manual) 4, Platelet Estimate Normal, Microcytosis 1+, Rouleaux 2+ 06/18/18 18:55: Sodium 132 L, Potassium 3.3 L, Chloride 94 L, Carbon Dioxide 27, Anion Gap 14.3, BUN 12, Creatinine 0.80, Estimated Creat Clear 71, Estimated GFR 71, Est GFR ( Amer) 85, Glucose 100, Calcium 8.6, Total Bilirubin 0.5, AST 17, ALT 24, Alkaline Phosphatase 85, Total Protein 7.4, Albumin 3.1 L, Globulin 4.3 H, Albumin/Globulin Ratio 0.7 L 06/18/18 18:55: ESR 88 H 06/18/18 18:55: C-Reactive Protein 58.3 H, Amylase 55, Lipase 125 06/18/18 19:00: Influenza Type A Ag Negative, Influenza Type B Ag Negative 06/18/18 19:10: Lactate 0.5 06/18/18 19:10: Stool Occult Blood Negative 06/18/18 19:10: Troponin I < 0.02 06/19/18 03:05: Urine Color Yellow, Urine Appearance Clear, Urine pH 6.0, Ur Specific [place] 1.010, Urine Protein Trace, Urine Glucose (UA) Negative, Urine Ketones 3+, Urine Blood 1+, Urine Nitrate Negative, Urine Bilirubin Negative, Urine Urobilinogen 1.0, Ur Leukocyte Esterase Negative, Urine RBC 10-20, Urine WBC Occasional, Amorphous Sediment Trace 06/19/18 05:55: WBC 13.1 H D, RBC 4.41, Hgb 10.8 L, Hct 34.5 L, MCV 78.2 L, MCH 24.2 L, MCHC 30.9 L, RDW 14.2, Plt Count 183, MPV 10.2, Neut % (Auto) 80.5 H, Lymph % (Auto) 14.4, [place] % (Auto) 4.6, Eos % (Auto) 0.3, Baso % (Auto) 0.3, Neut # (Auto) 10.6 H, Lymph # (Auto) 1.9, [place] # (Auto) 0.6, Eos # (Auto) 0.0, Baso # (Auto) 0.0 06/19/18 05:55: Sodium 136, Potassium 3.4 L, Chloride 97 L, Carbon Dioxide 29, Anion Gap 13.4, BUN 10, Creatinine 0.64, Estimated Creat Clear 70, Estimated GFR 91, Est GFR ( Amer) 110 D, Glucose 90, Calcium 7.6 L D I & O for Last 24 hours: Intake & Output 06/16/18 06/17/18 06/18/18 06/19/18 23:59 23:59 23:59 23:59 Intake Total 834 / 834 Output Total 300 / 300 Balance 534 / 534 Weight 87.26 kg - Constitutional mild distress, morbidly obese - *Routine HEENT Exam Head: Present: normocephalic, atraumatic Eye: Present: EOMI, PERRL ENT: Present: mucous membranes moist - *Routine Neck Exam Present: supple. Absent: JVD, lymphadenopathy - *Routine Respiratory Exam Present: CTA bilaterally. Absent: prolonged expiratory phase, wheezes, crackles - *Routine Cardiovascular Exam Present: RRR, Normal S1, Normal S2. Absent: murmur - *Routine Abdominal Exam Present: soft Comments: Hyperactive bowel sounds, tender to palpation left lower quadrant. No rebound or guarding - *Routine Rectal Exam Patient deferred: visual exam - *Routine Exam Patient deferred: external exam - *Routine Extremities Exam Absent: cyanosis, clubbing, edema - *Routine Skin Exam Present: intact. Absent: cyanosis, erythema - *Routine Neurological Exam Present: alert, oriented X3. Absent: altered mental status Assessment and Plan (1) Obesity (BMI 30-39.9) Current visit: Yes Status: Chronic Category: Medical Code(s): E66.9 - Obesity, unspecified Complicates all aspects of care (2) Abdominal pain, lower Current visit: Yes Status: Acute Category: Medical Code(s): R10.30 - Lower abdominal pain, unspecified CT with finding of colitis, formal read pending, given history of diverticulosis, concern for diverticulitis. Antibiotics as ordered including Zosyn and Flagyl. IV fluids until tolerating p.o. intake. Advance diet today with full liquids at lunch. If tolerates transition to regular diet for dinner. (3) Colitis Current visit: Yes Status: Acute Category: Medical Code(s): K52.9 - Noninfective gastroenteritis and colitis, unspecified (4) Diarrhea Current visit: Yes Status: Acute Qualifiers: Diarrhea type: unspecified type Qualified Code(s): R19.7 - Diarrhea, unspecified Category: Medical Code(s): R19.7 - Diarrhea, unspecified Improving. Stool culture pending (5) HTN (hypertension) Current visit: No Status: Chronic Qualifiers: Hypertension type: essential hypertension Qualified Code(s): I10 - Essential (primary) hypertension Category: Medical Code(s): I10 - Essential (primary) hypertension Stable. Continue home regimen (6) CAD (coronary artery disease) Current visit: No Status: Chronic Qualifiers: Coronary Disease-Associated Artery/Lesion type: [place] artery [place] vs. transplanted heart: [place] heart Associated angina: with stable angina Qualified Code(s): I25.118 - Atherosclerotic heart disease of [place] coronary artery with other forms of angina pectoris Category: Medical Code(s): I25.10 - Atherosclerotic heart disease of [place] coronary artery without angina pectoris (7) COPD (chronic obstructive pulmonary disease) Current visit: No Status: Chronic Qualifiers: COPD type: unspecified COPD Qualified Code(s): J44.9 - Chronic obstructive pulmonary disease, unspecified Category: Medical Code(s): J44.9 - Chronic obstructive pulmonary disease, unspecified
--- NOTE | 2018-06-19 10:42 | Pharmacy Consult Notes ---
[facility] Pharmacy VTE Monitoring - Patient Demographics Admission date: 06/18/18 Report Date: 06/19/18 Time: 10:41 Allergies/Adverse Reactions: Patient Allergies nitrofurantoin [From MACROBID] Allergy (Unknown, Verified 06/18/18 19:20) nylon [NYLON] Allergy (Unknown, Verified 06/18/18 19:20) I-RASH Penicillins Allergy (Unknown, Verified 06/18/18 19:20) I-RASH Sulfa (Sulfonamide Antibiotics) Allergy (Unknown, Verified 06/18/18 19:20) I-RASH Height: 1.52 m Weight: 87.26 kg Patient Problems: Current Active Problems Abdominal pain, lower (Acute) Diarrhea (Acute) Colitis (Acute) Obesity (BMI 30-39.9) (Acute) Obesity (BMI 30-39.9) (Chronic) - VTE Risk Labs: VTE Related Lab Results Hgb 10.8 g/dL (12.2-16.2) L 06/19/18 05:55 Hct 34.5 % (37.0-47.0) L 06/19/18 05:55 Plt Count 183 K/mm3 (142-424) 06/19/18 05:55 BUN 10 mg/dL (7-18) 06/19/18 05:55 Creatinine 0.64 mg/dL (0.55-1.02) 06/19/18 05:55 Estimated Creat Clear 70 mL/min (50-200) 06/19/18 05:55 Was VTE Risk Assessment Performed: Yes VTE Score: 9 VTE Risk Level: Moderate Risk - Prophylaxis VTE Prophylaxis Ordered?: Yes Types of VTE Prophylaxis: TEDS Knee High Location of Applied Device: Bilateral Lower Extremeties - VTE Diagnosis Confirmed Treatment or plan recommended: Continue Current Treatment
--- NOTE | 2018-06-20 08:09 | Discharge Summary ---
General - General Admission date:: 06/18/18 Discharge date: 06/20/18 HPI HPI: 72-year-old female with multiple comorbidities who presents with abdominal pain, nausea, diarrhea since Thursday. States she has had right and left lower quadrant abdominal discomfort, cramping, feeling feverish and chilling. She has not had alana emesis due to taking Zofran. Reports initially having significant loose stools for the first couple days and is now simply having mucus every time she sits down on the toilet since approximately . Has not eaten very much in the past several days. In the ER she was started on antibiotics for colitis/diverticulitis that was seen on abdominal CT. Labs on admission significant for mild hyponatremia, hypochloremia, leukocytosis. Admitted to medicine for further management. Denies syncope, headache, chest pain, shortness of breath Hospital Course Hospital Course: Admitted with abdominal pain, dehydration, and electrolyte disturbances. Initiated on IV Abx and IVF. improved by morning. Tolerated advancement of diet. Transitioned to PO Abx to complete course in outpatient setting. Hemodynamically stable, denies N/V, SOA, CP, GERMAN. mild abdominal tenderness. loose, but not watery stools. Stable for DC home to complete treatment course for diverticulitis. Objective Vital signs: Temp Pulse Resp BP Pulse Ox 98.4 F 76 20 125/47 L 98 06/20/18 04:00 06/20/18 04:00 06/20/18 04:00 06/20/18 04:00 06/20/18 04:00 Narrative: - Constitutional NAD, morbidly obese - *Routine HEENT Exam Head: Present: normocephalic, atraumatic Eye: Present: EOMI, PERRL ENT: Present: mucous membranes moist - *Routine Neck Exam Present: supple. Absent: JVD, lymphadenopathy - *Routine Respiratory Exam Present: CTA bilaterally. Absent: prolonged expiratory phase, wheezes, crackles - *Routine Cardiovascular Exam Present: RRR, Normal S1, Normal S2. Absent: murmur - *Routine Abdominal Exam Present: soft Comments: Normoactive bowel sounds, interval improvement in tenderness to palpation left lower quadrant. No rebound or guarding - *Routine Rectal Exam Patient deferred: visual exam - *Routine Exam Patient deferred: external exam - *Routine Extremities Exam Absent: cyanosis, clubbing, edema - *Routine Skin Exam Present: intact. Absent: cyanosis, erythema - *Routine Neurological Exam Present: alert, oriented X3. Absent: altered mental status Results Labs on day of discharge: Labs from last 24 hours 06/19/18 16:37 Stl Aeromonas (PCR) Not detected Stl C. cayetanensis PCR Not detected Stool Rotavirus (PCR) Not detected Stl Adenov F 40/41 PCR Not detected Stool Astrovirus (PCR) Not detected Stool Campylobacter PCR Not detected Stl C.difficile Tox PCR Not detected Stool Cryptosporidium PCR Not detected Stl E.coli Shiga Tox PCR Not detected Stool E coli O157 PCR Not detected Stl Enterotoxigenic E PCR Not detected Stool EPEC (PCR) Not detected Stool EAEC (PCR) Not detected Stl E. histolytica PCR Not detected Stool Giardia Lamblia PCR Not detected Stool Salmonella PCR Not detected Stool Sapovirus (PCR) Not detected Stl P. shigelloides PCR Not detected Stl Shigella/EIEC PCR Not detected St Y.enterocolitica PCR Not detected Stool Vibrio (PCR) Not detected Stl Vibrio cholerae PCR Not detected Stl Norovirus GI/GII PCR Not detected Preliminary micro results at discharge 06/18/18 19:10 Blood Culture - Preliminary Blood DS: Diagnosis - Discharge Diagnosis (1) Obesity (BMI 30-39.9) Status: Chronic (2) Abdominal pain, lower Status: Acute (3) Colitis Status: Acute (4) Diarrhea Status: Acute (5) HTN (hypertension) Status: Chronic (6) CAD (coronary artery disease) Status: Chronic (7) COPD (chronic obstructive pulmonary disease) Status: Chronic Discharge Plan - Patient Discharge Instructions Patient Instructions: DI for Diverticulitis, DI for Acute Abdomen - Follow up Plan Follow up with: Harmeet Yun MD [Staff Physician] - 1 week Disposition: Home, Self-Snf Medications: Home Medications Medication Instructions Recorded Confirmed Type aspirin 81 mg tablet,delayed 81 mg PO HS 06/29/17 06/18/18 History release pregabalin 150 mg capsule 150 mg PO BID 06/29/17 06/18/18 History simvastatin 20 mg tablet 20 mg PO HS 06/29/17 06/18/18 History Montelukast Sodium [Montelukast 10 mg PO HS 03/07/18 06/18/18 History 10mg Tab] albuterol sulfate HFA 90 2 puff INHALATION Q6HP PRN 04/20/18 06/19/18 History mcg/actuation aerosol inhaler benzonatate 200 mg capsule 200 mg PO TIDP PRN 04/20/18 06/19/18 History fluticasone furoate 100 1 puff INHALATION DAILY 04/20/18 06/19/18 History mcg/actuation blister powder for inhalation multivit with 1 tab PO DAILY 04/20/18 06/18/18 History onzbglyy-hymc-AK-lutein 8 mg iron-400 mcg-300 mcg tablet pantoprazole 40 mg tablet,delayed 40 mg PO DAILY tab 04/20/18 06/18/18 History release Albuterol Sulfate [Albuterol 1.25 mg IH Q4HP PRN 06/18/18 06/18/18 History 0.042% 1.25mg/3mL neb] Alendronate Sodium 70 tab PO [place] 06/18/18 06/19/18 History Tiotropium Br/Olodaterol HCl 2 puff INHALATION DAILY 06/18/18 06/19/18 History [Stiolto Respimat Inhal [place]] Bisoprol/Hydrochlorothiazide 1 tab PO BID 06/19/18 06/19/18 History [Bisoprolol-Hctz 5-6.25 mg Tab] Nitroglycerin 0.4 mg SUBLINGUAL Q5MINP PRN 06/19/18 06/19/18 History diazePAM [Valium 2mg tablet] 2 mg PO DAILYP PRN 06/19/18 06/19/18 History Prescriptions/Medication Reconciliation: Continue aspirin 81 mg tablet,delayed release 81 mg PO HS pregabalin 150 mg capsule 150 mg PO BID simvastatin 20 mg tablet 20 mg PO HS pantoprazole 40 mg tablet,delayed release 40 mg PO DAILY tab multivit with bdypmvfs-prpq-AT-lutein 8 mg iron-400 mcg-300 mcg tablet 1 tab PO DAILY fluticasone furoate 100 mcg/actuation blister powder for inhalation 1 puff INHALATION DAILY albuterol sulfate HFA 90 mcg/actuation aerosol inhaler 2 puff INHALATION Q6HP PRN PRN Reason: Shortness Of Breath benzonatate 200 mg capsule 200 mg PO TIDP PRN PRN Reason: Cough Montelukast Sodium [Montelukast 10mg Tab] 10 mg PO HS Albuterol Sulfate [Albuterol 0.042% 1.25mg/3mL neb] 1.25 mg IH Q4HP PRN PRN Reason: Shortness Of Breath Or Wheezing diazePAM [Valium 2mg tablet] 2 mg PO DAILYP PRN PRN Reason: Anxiety Nitroglycerin 0.4 mg SUBLINGUAL Q5MINP PRN PRN Reason: Chest Pain Bisoprol/Hydrochlorothiazide [Bisoprolol-Hctz 5-6.25 mg Tab] 1 tab PO BID Alendronate Sodium 70 tab PO MO Tiotropium Br/Olodaterol HCl [Stiolto Respimat Inhal [place]] 2 puff INHALATION DAILY
== END 2018-06-20 10:25 | disposition home or self-care (01) ==
LOC: ER 18:53 → 2ND 21:15 → INTOOBSV 21:57 → 2ND 21:58
PROVIDERS: ADMIT Emergency Medicine; ATTEND Internal Medicine Adolescent Medicine
DX: Z88.1 Allergy status to other antibiotic agents; Z85.118 Personal history of other malignant neoplasm of bronchus and lung; Z88.2 Allergy status to sulfonamides; I25.118 Atherosclerotic heart disease of native coronary artery with other forms of angina pectoris; Z79.899 Other long term (current) drug therapy; Z79.51 Long term (current) use of inhaled steroids; I10 Essential (primary) hypertension; Z68.38 Body mass index [BMI] 38.0-38.9, adult; Z79.82 Long term (current) use of aspirin; R10.30 Lower abdominal pain, unspecified; Z91.048 Other nonmedicinal substance allergy status; E87.8 Other disorders of electrolyte and fluid balance, not elsewhere classified; J44.9 Chronic obstructive pulmonary disease, unspecified; K52.9 Noninfective gastroenteritis and colitis, unspecified; K44.9 Diaphragmatic hernia without obstruction or gangrene; D72.829 Elevated white blood cell count, unspecified; E66.01 Morbid (severe) obesity due to excess calories; Z88.0 Allergy status to penicillin; R19.7 Diarrhea, unspecified; E87.1 Hypo-osmolality and hyponatremia
CPT/HCPCS: 36415; 74177; 80048; 80053; 81001; 82150; 82272; 83605; 83690; 84484; 85007; 85025; 85651; 86140; 87040; 87077; 87186; 87275; 87276; 87507; 93005; 96365; 96375; 99285; G0328; G0378; J2405; J2543; Q9967

== ENCOUNTER → 2018-06-28 16:14 | Outpatient (CLI) | payer MEDICARE, SELFPAY ==
[2018-06-28 16:30] LABS: Basophils # 0.1 K/mm3 (0-0.2); Basophils % 0.4 % (0.1-2.0); Eosinophils # 0.1 K/mm3 (0.0-0.4); Eosinophils % 0.7 % (0.1-12.0); Hematocrit 35.8 % (37.0-47.0); Hemoglobin 10.9 g/dL (12.2-16.2); Lymphocytes % 15.3 % (10-50); Mean Corpuscular HGB Conc 30.4 g/dL (31.8-35.4); Mean Corpuscular Hemoglobin 24.5 pg (27.0-31.2); Mean Corpuscular Volume 80.7 fl (81-99); Mean Platelet Volume 10.1 fl (7.4-10.4); Monocytes # 0.8 K/mm3 (0.1-1.0); Neutrophils % 77.7 % (37.0-80.0); Platelet Count 343 K/mm3 (142-424); Red Blood Count 4.44 M/mm3 (4.20-5.40); Red Cell Distribution Width 14.5 % (11.5-17.5); White Blood Count 12.9 K/mm3 (4.8-10.8)
[2018-06-28 17:57] LABS: Alanine Aminotransferase 18 U/L (12-78); Albumin Level 2.9 gm/dL (3.4-5.0); Alkaline Phosphatase 79 U/L (46-116); Anion Gap 11.8 mEq/L (5-15); Aspartate Amino Transferase 13 U/L (15-37); Bilirubin,Total 0.2 mg/dL (0.2-1.0); Blood Urea Nitrogen 9 mg/dL (7-18); Calcium 8.8 mg/dL (8.5-10.1); Carbon Dioxide 32 mmol/L (21.0-32.0); Chloride 99 mmol/L (98-107); Creatinine,Serum 0.62 mg/dL (0.55-1.02); Estimated Glomerular Filt Rate 95 ml/min (>60); GFR (African American) 114 ML/MIN (>60); Glucose 108 mg/dL (74-106); Potassium 3.8 mmoL/L (3.5-5.1); Sodium 139 mmol/L (136-145); Total Protein,Serum 5.9 gm/dL (6.4-8.2)
== END ==
PROVIDERS: Visit Provider Internal Medicine Adolescent Medicine
DX: K57.92 Diverticulitis of intestine, part unspecified, without perforation or abscess without bleeding (principal)
CPT/HCPCS: 36415; 80053; 85025

== ENCOUNTER → 2018-07-12 12:43 | Outpatient (CLI) | payer MEDICARE, SELFPAY ==
[2018-07-12 13:03] LABS: Blood Urea Nitrogen 11 mg/dL (7-18); Estimated Glomerular Filt Rate 121 ml/min (>60); GFR (African American) 146 ML/MIN (>60)
--- NOTE | 2018-07-12 13:27 | CT_ITS ---
CT chest w con HISTORY: ITS.REASON: ADENOCARCINOMA OF RIGHT LUNG ORDERING PHYSICIAN: Sim Dent PATIENT AGE: 73 years COMPARISON: None TECHNIQUE: Axial images obtained following the administration of 75 mL of Optiray 350. Sagittal, and coronal reformatted images are also generated and reviewed. All CT scans at the facility use one or more dose reduction, viz: automated exposure control, ma/kV adjustment per patient size (including targeted exams where dose is matched to indication, i.e. head), or iterative reconstruction technique. FINDINGS: No mediastinal or hilar mass or adenopathy. No evidence of central pulmonary embolus, aortic aneurysm, or aortic dissection. Atherosclerotic changes are present involving the aorta and there are prominent coronary artery calcifications as well. No pericardial effusion. There is a small hiatal hernia. Centrilobular emphysema. There are scattered fibrotic changes. There are postsurgical changes in the right middle lobe. There was a previous nodule noted.. There are postsurgical changes of the right eighth rib laterally. Parenchymal opacity is present in the right lower lobe posteriorly with central lucency. This had a similar appearance on the previous exam. Small subpleural opacity is present in the right costophrenic angle at 6 mm could be due to an area of fibrosis. There are fibrotic changes in the lingula. 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 There are mild degenerative changes in the thoracic spine. No effusions or infiltrates. IMPRESSION: Centrilobular emphysema with postsurgical changes and scattered areas of pulmonary fibrosis. No suspicious nodules evident. No change in the opacity in the lingula which may represent an area of fibrosis/atelectasis 6 mm nodular opacity in the right CP angle which may be due to an area of fibrosis. Six-month follow-up may confirm stability
== END ==
PROVIDERS: PCP Internal Medicine Adolescent Medicine; Visit Provider Internal Medicine Medical Oncology
DX: C34.91 Malignant neoplasm of unspecified part of right bronchus or lung (principal)
CPT/HCPCS: 36415; 71260; 82565; 84520

== ENCOUNTER → 2018-07-26 16:07 | Outpatient (CLI) | payer MEDICARE, SELFPAY ==
[2018-07-26 16:22] LABS: Basophils % 0.4 % (0.1-2.0); Eosinophils # 0.1 K/mm3 (0.0-0.4); Eosinophils % 1.4 % (0.1-12.0); Hematocrit 37.5 % (37.0-47.0); Hemoglobin 11.6 g/dL (12.2-16.2); Lymphocytes # 2.1 K/mm3 (0.7-4.5); Lymphocytes % 24.8 % (10-50); Mean Corpuscular HGB Conc 31.1 g/dL (31.8-35.4); Mean Corpuscular Hemoglobin 24.8 pg (27.0-31.2); Mean Platelet Volume 10.5 fl (7.4-10.4); Monocytes # 0.3 K/mm3 (0.1-1.0); Monocytes % 4.1 % (1.7-9.3); Neutrophils # 5.7 K/mm3 (1.8-7.8); Neutrophils % 69.3 % (37.0-80.0); Platelet Count 220 K/mm3 (142-424); Red Blood Count 4.68 M/mm3 (4.20-5.40); Red Cell Distribution Width 15.1 % (11.5-17.5); White Blood Count 8.3 K/mm3 (4.8-10.8)
[2018-07-26 17:09] LABS: Blood Urea Nitrogen 10 mg/dL (7-18); Calcium 9.2 mg/dL (8.5-10.1); Carbon Dioxide 29 mmol/L (21.0-32.0); Chloride 101 mmol/L (98-107); Estimated Glomerular Filt Rate 98 ml/min (>60); GFR (African American) 119 ML/MIN (>60); Glucose 88 mg/dL (74-106); Sodium 141 mmol/L (136-145)
== END ==
PROVIDERS: Visit Provider Internal Medicine Adolescent Medicine
DX: K57.92 Diverticulitis of intestine, part unspecified, without perforation or abscess without bleeding (principal)
CPT/HCPCS: 36415; 80048; 85025

== ENCOUNTER → 2018-09-19 14:03 | Outpatient (CLI) | payer MEDICARE, SELFPAY ==
[2018-09-19 14:19] LABS: Basophils # 0.1 K/mm3 (0-0.2); Basophils % 0.6 % (0.1-2.0); Eosinophils # 0.1 K/mm3 (0.0-0.4); Eosinophils % 1.6 % (0.1-12.0); Hematocrit 38.7 % (37.0-47.0); Hemoglobin 12.3 g/dL (12.2-16.2); Lymphocytes # 2.1 K/mm3 (0.7-4.5); Mean Corpuscular HGB Conc 31.8 g/dL (31.8-35.4); Mean Corpuscular Hemoglobin 25.3 pg (27.0-31.2); Mean Corpuscular Volume 79.5 fl (81-99); Mean Platelet Volume 10.4 fl (7.4-10.4); Monocytes # 0.4 K/mm3 (0.1-1.0); Monocytes % 4.3 % (1.7-9.3); Neutrophils # 5.8 K/mm3 (1.8-7.8); Neutrophils % 68.5 % (37.0-80.0); Platelet Count 236 K/mm3 (142-424); Red Blood Count 4.87 M/mm3 (4.20-5.40); Red Cell Distribution Width 14.5 % (11.5-17.5); White Blood Count 8.4 K/mm3 (4.8-10.8)
[2018-09-19 15:46] LABS: Alanine Aminotransferase 21 U/L (12-78); Albumin Level 3.7 gm/dL (3.4-5.0); Albumin/Globulin Ratio 1.2 (1.1-1.8); Alkaline Phosphatase 78 U/L (46-116); Anion Gap 12.7 mEq/L (5-15); Aspartate Amino Transferase 10 U/L (15-37); Bilirubin,Total 0.4 mg/dL (0.2-1.0); Blood Urea Nitrogen 18 mg/dL (7-18); Calcium 9.1 mg/dL (8.5-10.1); Carbon Dioxide 29 mmol/L (21.0-32.0); Chloride 104 mmol/L (98-107); Creatinine,Serum 0.88 mg/dL (0.55-1.02); Estimated Glomerular Filt Rate 63 ml/min (>60); GFR (African American) 76 ML/MIN (>60); Globulin 3.1 gm/dl (1.3-3.2); Glucose 80 mg/dL (74-106); Potassium 4.7 mmoL/L (3.5-5.1); Sodium 141 mmol/L (136-145); Total Protein,Serum 6.8 gm/dL (6.4-8.2)
== END ==
PROVIDERS: Internal Medicine Hematology & Oncology; Visit Provider Internal Medicine Medical Oncology
DX: I10 Essential (primary) hypertension (principal); E78.5 Hyperlipidemia, unspecified; I25.10 Atherosclerotic heart disease of native coronary artery without angina pectoris
CPT/HCPCS: 36415; 80053; 85025

== ENCOUNTER → 2018-09-20 08:45 | Outpatient (CLI) | payer MEDICARE, SELFPAY ==
--- NOTE | 2018-09-20 08:59 | CT_ITS ---
CT abdomen pelvis w con INDICATION: ITS.REASON: RECTAL THICKENING WITH HX OF MALIGNACY ORDERING PHYSICIAN: Sim Dent PATIENT AGE: 73 years COMPARISON: CT abdomen pelvis 06/18/2018 TECHNIQUE: 7 5 cc Optiray 350 IV contrast. No oral contrast utilized. Axial images obtained with sagittal and coronal reformats. All CT scans at the facility use one or more dose reduction, viz: automated exposure control, ma/kV adjustment per patient size (including targeted exams where dose is matched to indication, i.e. head), or iterative reconstruction technique. FINDINGS: Lung bases. Clear nothing acute heart normal size. Stents & coronary artery calcifications noted. . Hiatal hernia noted. ABDOMEN /LIVER appears satisfactory no lesions. Spleen, pancreas unremarkable. Stable. Within normal limits. Cholecystectomy. Mild dilatation of common duct is stable and reflects postcholecystectomy changes. No intrahepatic biliary ductal dilatation associated. tract. The kidneys appear stable with no calculi nor obstruction. There may be some minor cortical thinning or scarring superior lip. Ureters normal in course and caliber. Pelvis. Urinary bladder unremarkable. Hysterectomy. No pelvic mass or adenopathy. GI TRACT. Colonic diverticulosis most pronounced at sigmoid and left colon. Resolution of the acute findings versus June CT study.. Marked improvement.. I see no discrete new areas of diverticulitis currently. There is some generous diverticuli seen at the distal sigmoid colon with some borderline thickening but no inflammatory changes associated.. Likely merely baseline generous diverticuli for this patient. Previous June CT there was noted to be mild thickening of the rectal wall most evident at superior rectum. This is less evident & less pronounced. Today the superior rectal wall appears upper normal thickness with appearance most likely reflecting the underlying diverticular disease at to this region.. No definitive nor progressive mass lesion by CT survey.. However colonoscopy/sigmoidoscopy of would be the most definitive way to exclude underlying pathology here at superior rectum. The wall of the proximal and mid sigmoid colon colon appears more satisfactory. Less thickened less inflamed than in June. Diverticuli extensive throughout the sigmoid colon and continuing throughout the descending colon but no discrete acute diverticulitis.. No fluid or inflammatory changes at the lower pelvis. .No retroperitoneal nor mesenteric pelvic adenopathy. No inguinal adenopathy. Osseous. No osseous lesions. Facet hypertrophy lower 2 levels L-spine most notable. Disc bulge L4/5 IMPRESSION......... No significant new findings 1. Diverticulosis most extensive at sigmoid colon and less evident at the descending colon. . No discrete acute diverticulitis findings today. No no pericolic inflammation on today's study. .Borderline thickening of a few diverticula at the distal sigmoid colon noted but with no inflammation & likely baseline appearance for this patient.. ... Previous findings of acute diverticulitis in June have resolved. 2.. Significant improvement & regression of thickening to the rectum wall seen on June study, now inflammation has resolved. Only upper normal wall thickening here, at superior rectum... However Follow-up colonoscopy/or sigmoidoscopy would be best & most definitive way to totally exclude additional lesion/abnormality here at superior rectum 3. Small hiatal hernia noted..
== END ==
PROVIDERS: PCP Internal Medicine Adolescent Medicine; Visit Provider Internal Medicine Medical Oncology
DX: C34.91 Malignant neoplasm of unspecified part of right bronchus or lung (principal)
CPT/HCPCS: 74177; Q9967

== ENCOUNTER 2018-10-21 13:28 | Outpatient (CLI) | payer MEDICARE, SELFPAY | END 2018-10-21 14:00 | disposition home or self-care (01) | LOC: INF 13:30 | PROVIDERS: PCP Internal Medicine Adolescent Medicine; Visit Provider Surgery | DX: S81.851A Open bite, right lower leg, initial encounter (principal); Z48.00 Encounter for change or removal of nonsurgical wound dressing; W54.0XXA Bitten by dog, initial encounter | CPT/HCPCS: G0463 ==

== ENCOUNTER 2018-10-22 14:00 | Outpatient (RCR) | payer MEDICARE, SELFPAY ==
--- NOTE | 2018-09-27 14:58 | HMH.PTOPEV ---
PT Outpatient Evaluation Rehab PT Outpatient Evaluation Start: 09/27/18 13:55 Freq: Status: Active Protocol: Document 09/27/18 14:48 PHORBRI (Rec: 09/27/18 14:58 PHORNE [id number]) Electronically Signed By Milan Sigala, PT 09/27/18 14:48 Outpatient Therapy Subjective History Subjective History Pt is 73 yowf who presents with c/o pain in the right shld, neck, and my whole back x ~ 1 mo with insidious onset of symptoms. She also reports frequent headache since this pain began and states, I always have a headache, but these have been worse. Pt reports pain all over due to fibromyalgia. She has PMH of COPD, lung cancer with surgery to remove tumor ~ 1 yr ago, CAD with stents, HTN, HL, YVETTE, CCY. Chief Complaint Pain,Stiff Symptom Type Ache,Sharp Symptoms Relieved By Heat Symptoms Aggravated By Prone,Supine,Sitting,Standing, Bending/Stooping,Physical Activity,Walking,Lifting Prior Functional Limitations Housework,Walking Current Functional Limitations Lifting,Housework,Walking Symptom Description Constant but Variable Level of pain today (0-10) 6 Pain scale - at its worst (0-10) 10 Cervical Eval Palpation Cervical Muscles R Cervical Paraspinal,L Cervical Paraspinal,R Suboccipital,L Suboccipital,R SCM,L SCM,R CT Junction,L CT Junction,R Upper Trapezius,L Upper Trapezius,R Thoracic Paraspinals,L Thoracic Paraspinals Cervical/Thoracic Palpation Findings Tenderness Posture Head/C-Spine Posture Sitting Position Extended Head/C-Spine Posture Standing Position Extended Flexibility Deficits Upper Trapezius Muscle Length (R) Moderate Tightness,(L) Moderate Tightness Levaetor Scapulae Muscle Length (R) Moderate Tightness,(L) Moderate Tightness Passive Joint Mobility Cervical PIVM Dec: R C2/3 L C2/3 R C3/4 L C3/4 R C4/5 L C4/5 R C5/6
== END 2018-10-22 14:05 | disposition home or self-care (01) ==
LOC: PT 14:00
PROVIDERS: Visit Provider Internal Medicine Adolescent Medicine
DX: S16.1XXD Strain of muscle, fascia and tendon at neck level, subsequent encounter (principal); M62.838 Other muscle spasm
CPT/HCPCS: 97010; 97014; 97035; 97110; 97140; 97163; G0283

== ENCOUNTER 2018-10-23 14:25 | Outpatient (CLI) | payer MEDICARE, SELFPAY ==
[2018-10-23 15:00] VITALS: BP 157/55; PULSE 60; RESP 16; O2SAT 92
[2018-10-23 16:06] VITALS: BP 131/51; PULSE 56; RESP 16; O2SAT 93
== END 2018-10-23 16:07 | disposition home or self-care (01) ==
LOC: INF 14:28
PROVIDERS: PCP Internal Medicine Adolescent Medicine; Visit Provider Surgery
DX: S81.851A Open bite, right lower leg, initial encounter (principal); Z48.00 Encounter for change or removal of nonsurgical wound dressing; W54.0XXA Bitten by dog, initial encounter
CPT/HCPCS: G0463

== ENCOUNTER 2018-10-24 15:22 | Outpatient (CLI) | payer MEDICARE, SELFPAY ==
[2018-10-24 15:41] VITALS: BMI 37.8
[2018-10-24 15:42] VITALS: BP 143/61; PULSE 54; RESP 18; TEMP 36.7; O2SAT 93
[2018-10-24 16:15] VITALS: BP 139/58; PULSE 55; RESP 16; O2SAT 93
== END 2018-10-24 16:16 | disposition home or self-care (01) ==
PROVIDERS: PCP Internal Medicine Adolescent Medicine; Visit Provider Surgery
DX: S81.851A Open bite, right lower leg, initial encounter (principal); Z48.00 Encounter for change or removal of nonsurgical wound dressing; W54.0XXA Bitten by dog, initial encounter
CPT/HCPCS: G0463

== ENCOUNTER → 2018-10-25 13:52 | Outpatient (CLI) | payer MEDICARE, SELFPAY ==
[2018-10-25 14:53] VITALS: BP 123/54; PULSE 55; RESP 16; TEMP 36.8; O2SAT 95
[2018-10-25 15:21] VITALS: BP 121/58; PULSE 61; RESP 16; TEMP 36.9; O2SAT 97
== END ==
PROVIDERS: PCP Internal Medicine Adolescent Medicine; Visit Provider Surgery
DX: S81.851A Open bite, right lower leg, initial encounter (principal); Z48.00 Encounter for change or removal of nonsurgical wound dressing; W54.0XXA Bitten by dog, initial encounter
CPT/HCPCS: G0463

== ENCOUNTER → 2018-12-14 14:05 | Outpatient (POV) | payer MEDICARE, SELFPAY | PROVIDERS: Visit Provider Dermatology | DX: Z00.00 Encounter for general adult medical examination without abnormal findings (principal) ==

== ENCOUNTER → 2019-04-07 12:39 | Outpatient (CLI) | payer MEDICARE, SELFPAY ==
--- NOTE | 2019-04-07 12:41 | CT_ITS ---
PROCEDURE: CT CHEST W CON CLINCAL INDICATION: LUNG CA Follow-up lung cancer COMPARISON: CHESTW CT chest w con from 07/12/[address] abdomen pelvis w con from 09/20/2018 TECHNIQUE: IV Contrast: 75ml Optiray 350 Axial images obtained with sagittal and coronal reformats. All CT scans at the facility use one or more dose reduction, viz: automated exposure control, ma/kV adjustment per patient size (including targeted exams where dose is matched to indication, i.e. head), or iterative reconstruction technique. FINDINGS: HEART,AORTA,PULMONARY ARTERIES coronary artery calcifications are present. No mediastinal or hilar mass or adenopathy. Normal heart size. MEDIASTINAL AND HILAR STRUCTURES: Small hiatal hernia. No mediastinal or hilar mass LUNGS: Centrilobular emphysema with COPD and scattered areas of pulmonary scarring. There is a stable parenchymal opacity in the central aspect of the right upper lobe. There are postsurgical changes of the right 8th rib once again noted with chronic parenchymal density in the right lower lobe posteriorly which may be due to scarring. There is a new noncalcified nodule in the right upper lobe laterally series 3, image 28. This measures up to 7 mm. Postsurgical changes are present in the right middle lobe. A small ground-glass opacity is present in the left lower lobe posteriorly at 6 mm. A subpleural nodule is present in the left lower lobe posterior laterally at 5 mm. A new parenchymal opacity is present in the left upper lobe posterior laterally at 8 mm series 3, image 28. PLEURAL SPACES: No significant effusion. No evidence of pneumothorax. BONY STRUCTURES: No acute bony abnormalities apparent. LYMPH NODES: No enlarged lymph nodes evident. UPPER ABDOMEN: Small hiatal hernia ADDITIONAL FINDINGS: No other significant abnormalities. IMPRESSION: 1. There are at least 2 new parenchymal nodular opacities 1 in the right upper lobe laterally at 7 mm and 1 in the left upper lobe posteriorly at 8 mm. While these could be due to underlying inflammatory or infectious changes, 1 cannot exclude the possibility of pulmonary metastasis. Consider 3 month follow-up to evaluate for progression. 2. Centrilobular emphysema with postsurgical changes and chronic changes noted. Dictated by: Roberto Whalen MD 04/08/2019 16:56 Electronically signed by Roberto Whalen MD in [facility] 04/09/2019 06:43
== END ==
PROVIDERS: PCP Internal Medicine Adolescent Medicine; Visit Provider Internal Medicine Medical Oncology
DX: C34.91 Malignant neoplasm of unspecified part of right bronchus or lung (principal)
CPT/HCPCS: 71260; Q9967

== ENCOUNTER → 2019-05-09 13:56 | Outpatient (CLI) | payer MEDICARE, SELFPAY ==
[2019-05-09 15:08] LABS: Basophils # 0.1 K/mm3 (0-0.2); Basophils % 0.6 % (0.1-2.0); Eosinophils # 0.2 K/mm3 (0.0-0.4); Eosinophils % 1.7 % (0.1-12.0); Hematocrit 41.4 % (37.0-47.0); Hemoglobin 12.5 g/dL (12.2-16.2); Lymphocytes # 0.6 K/mm3 (0.7-4.5); Lymphocytes % 6.1 % (10-50); Mean Corpuscular HGB Conc 30.1 g/dL (31.8-35.4); Mean Corpuscular Hemoglobin 24.9 pg (27.0-31.2); Mean Corpuscular Volume 82.9 fl (81-99); Mean Platelet Volume 11.9 fl (7.4-10.4); Monocytes # 0.5 K/mm3 (0.1-1.0); Monocytes % 5.6 % (1.7-9.3); Neutrophils # 7.9 K/mm3 (1.8-7.8); Neutrophils % 85.9 % (37.0-80.0); Platelet Count 217 K/mm3 (142-424); Red Cell Distribution Width 14.6 % (11.5-17.5); White Blood Count 9.2 K/mm3 (4.8-10.8)
[2019-05-09 15:13] LABS: MANUAL DIFFERENTIAL MANUAL DIFFERENTIAL (MANUAL DIFF)
[2019-05-09 15:51] LABS: Alanine Aminotransferase 20 U/L (12-78); Albumin Level 3.5 gm/dL (3.4-5.0); Albumin/Globulin Ratio 1.2 (1.1-1.8); Alkaline Phosphatase 82 U/L (46-116); Anion Gap 12.7 mEq/L (5-15); Aspartate Amino Transferase 13 U/L (15-37); Bilirubin,Total 0.4 mg/dL (0.2-1.0); Blood Urea Nitrogen 10 mg/dL (7-18); Calcium 8.8 mg/dL (8.5-10.1); Carbon Dioxide 31 mmol/L (21.0-32.0); Chloride 100 mmol/L (98-107); Chol/HDL Ratio 2.7 (1-3.5); Cholesterol 149 mg/dL (140-200); Creatinine,Serum 0.52 mg/dL (0.55-1.02); Estimated Glomerular Filt Rate 116 ml/min (>60); GFR (African American) 140 ML/MIN (>60); Glucose 87 mg/dL (74-106); HDL Cholesterol 56 mg/dL (29-89); LDL Cholesterol 72 mg/dL (0-130); Potassium 4.7 mmoL/L (3.5-5.1); Sodium 139 mmol/L (136-145); Total Protein,Serum 6.5 gm/dL (6.4-8.2); Triglycerides 105 mg/dL (30-200); VLDL Cholesterol 21 mg/dL (0-40)
[2019-05-09 16:37] LABS: Lymphocytes % 13 % (10-50); Monocytes % 1 % (2-9); Neutrophils % 86 % (42-76); Total Cells Counted 100
[2019-05-09 16:38] LABS: Hypochromasia 1+; Platelet Estimate Normal
== END ==
PROVIDERS: Visit Provider Nurse Practitioner Family
DX: I10 Essential (primary) hypertension (principal); I25.10 Atherosclerotic heart disease of native coronary artery without angina pectoris; L50.9 Urticaria, unspecified; J44.9 Chronic obstructive pulmonary disease, unspecified; E55.9 Vitamin D deficiency, unspecified
CPT/HCPCS: 36415; 80053; 80061; 82652; 84443; 85007; 85025

== ENCOUNTER → 2019-06-28 14:11 | Outpatient (POV) | payer MEDICARE, SELFPAY | PROVIDERS: Visit Provider Dermatology | DX: Z00.00 Encounter for general adult medical examination without abnormal findings (principal) ==

== ENCOUNTER → 2019-08-30 14:43 | Outpatient (CLI) | payer MEDICARE, SELFPAY ==
[2019-08-30 18:03] LABS: Chloride 95 mmol/L (98-107); Potassium 5.1 mmoL/L (3.5-5.1); Sodium 133 mmol/L (136-145)
[2019-08-30 18:06] LABS: Alanine Aminotransferase 13 U/L (12-78); Albumin Level 3.9 g/dl (3.5-5.0); Albumin/Globulin Ratio 1.6 (1.1-1.8); Alkaline Phosphatase 74 U/L (38-126); Anion Gap 10.1 mEq/L (5-15); Aspartate Amino Transferase 23 U/L (14-36); Bilirubin,Total 0.3 mg/dl (0.2-1.3); Blood Urea Nitrogen 8 mg/dl (7-17); Carbon Dioxide 33 mmol/L (22.0-30.0); Estimated Glomerular Filt Rate 121 ml/min (>60); GFR (African American) 146 ML/MIN (>60); Globulin 2.4 g/dL (1.3-3.2); Total Protein,Serum 6.3 g/dl (6.3-8.2)
[2019-08-30 18:07] LABS: Calcium 9.2 mg/dl (8.4-10.2); Glucose 87 mg/dl (74-100)
== END ==
PROVIDERS: Visit Provider Internal Medicine Medical Oncology
DX: C34.91 Malignant neoplasm of unspecified part of right bronchus or lung (principal)
CPT/HCPCS: 36415; 80053

== ENCOUNTER → 2019-09-01 08:46 | Outpatient (CLI) | payer MEDICARE, SELFPAY ==
--- NOTE | 2019-09-01 08:51 | CT_ITS ---
PROCEDURE: CT ABDOMEN PELVIS W CON CLINICAL INDICATION: LUNG CANCER Follow-up evaluation with previous abnormal CT abdomen and pelvis 09/20/2018 COMPARISON: ABDPELW CT abdomen pelvis w con from 09/20/2018 TECHNIQUE: IV Contrast: 75ML OPTIRAY 350 Oral Contrast 20ml Gastroview Axial images obtained with sagittal and coronal reformats. All CT scans at the facility use one or more dose reduction, viz: automated exposure control, ma/kV adjustment per patient size (including targeted exams where dose is matched to indication, i.e. head), or iterative reconstruction technique. FINDINGS: LOWER THORAX: There are pulmonary opacities in both visualized lung bases including a cavitary infiltrate in the right lower lobe stable from previous exam. A new 3 millimeter indeterminate noncalcified pulmonary nodule is seen in the left lower lobe image 15 series 5. Coronary atherosclerosis is noted. Please see dedicated CT of the thorax report. There is a small hiatal hernia. ABDOMEN & PELVIS: The liver, spleen, pancreas, adrenal glands, and kidneys show no acute finding. Mild nodularity of the left adrenal gland unchanged over the interval is noted. Benign adenomatous disease is favored. No intestinal obstruction or free air. No evidence of appendicitis or diverticulitis. There is colonic diverticulosis greatest in the sigmoid colon. 4 No pelvic mass, abnormal fluid collection, or focal inflammatory change of the pelvis. No acute bony anomalies. A 6 millimeter sclerotic focus in inferior T9 and a 3 millimeter sclerotic focus in the right iliac bone and a 6 millimeter sclerotic focus in the right sacrum and a 3 millimeter sclerotic focus in the left ischium are all unchanged likely benign bone islands. Sclerotic metastases are felt to be less likely. IMPRESSION: No acute findings. No findings specific for metastatic disease. Dictated by: Nadir Lewis 09/01/2019 10:41 Electronically signed by Nadir Lewis in [facility] 09/01/2019 10:41
--- NOTE | 2019-09-01 08:51 | CT_ITS ---
PROCEDURE: CT CHEST W CON CLINCAL INDICATION: LUNG CANCER COMPARISON: CT CHEST W CON from 04/07/2019 TECHNIQUE: IV Contrast: 75ml Optiray 350 Axial images obtained with sagittal and coronal reformats. All CT scans at the facility use one or more dose reduction, viz: automated exposure control, ma/kV adjustment per patient size (including targeted exams where dose is matched to indication, i.e. head), or iterative reconstruction technique. FINDINGS: HEART AND MEDIASTINAL STRUCTURES: Coronary arterial calcifications are noted. Subcentimeter hypodensities in both thyroid lobes are likely adenomas. Precarinal and subcarinal and right hilar lymphadenopathy are again noted and not significantly changed. Post inflammatory or neoplastic etiologies would have to be considered. There is a small hiatal hernia. . LUNGS AND PLEURAL SPACES: Previously reported pulmonary opacities in the superior medial aspect of the left upper lobe adjacent to the aortic arch and in the right upper lung field are much smaller on today's exam. Irregular somewhat cavitary infiltrate in the posterior medial right lower lobe is again noted and not significantly changed images 48-51 series 4. There are several new 2 millimeter nodular opacities in the anterior medial right upper lobe images 26-27 series 4. A new 3 millimeter indeterminate nodule abutting the pleural surface is seen in the lateral left upper lobe adjacent to the oblique fissure image 33 series 4. A new 2 millimeter nodule is seen in the posterior medial left lower lobe image 36 series 4. New 3 millimeter nodule is seen in the right upper lobe image 11 series 4. A new 3 millimeter indeterminate pulmonary nodule is seen in the left lower lobe image 59 series 4. 7 millimeter ground-glass nodule in the left lower lobe image 50 series 4 is not definitely changed. Other scattered pulmonary opacities are again noted and not significantly changed. Pleuroparenchymal scarring with some dystrophic calcification is seen along the anterior inferior right middle lobe. There is some chronic consolidation of the inferior lingula unchanged. Calcified granulomas are seen in the left base. Lungs are emphysematous. BONY STRUCTURES: No acute bony abnormalities apparent. UPPER ABDOMEN: There is fatty infiltration of the liver and postsurgical change from cholecystectomy. Mild enlargement of left adrenal gland is unchanged. It is relatively hypodense and benign adenoma is favored.. ADDITIONAL FINDINGS: No other significant abnormalities. IMPRESSION: Previously reported new nodular opacities on exam of 04/07/2019 are decreased in size. This would favor therapeutic response to metastatic disease or interval improvement in inflammatory process. Multiple new small nodular opacities bilaterally. Post inflammatory or neoplastic etiologies would have to be considered. Continued short interval follow-up is recommended. Consider 6-12 month follow-up exam. Stable appearance of multiple other irregular and nodule like pulmonary opacities which would favor benign post inflammatory etiology. Coronary atherosclerosis. Stable appearance of mediastinal lymphadenopathy. Dictated by: Nadir Lewis 09/01/2019 10:27 Electronically signed by Nadir Lewis in [facility] 09/01/2019 10:27
== END ==
PROVIDERS: PCP Internal Medicine Adolescent Medicine; Visit Provider Internal Medicine Medical Oncology
DX: C34.91 Malignant neoplasm of unspecified part of right bronchus or lung (principal); Z03.89 Encounter for observation for other suspected diseases and conditions ruled out
CPT/HCPCS: 71260; 74177; Q9967

== ENCOUNTER → 2019-10-24 10:15 | Outpatient (CLI) | payer MEDICARE, SELFPAY ==
[2019-10-24 12:10] LABS: Coronavirus 19 IgG Antibody Negative (Negative); Coronavirus 19 IgM Antibody Negative (Negative)
== END ==
PROVIDERS: Visit Provider Ophthalmology
DX: Z03.818 Encounter for observation for suspected exposure to other biological agents ruled out (principal)
CPT/HCPCS: 36415; 86328

== ENCOUNTER 2019-10-25 09:03 | Day surgery (SDC) | payer MEDICARE, SELFPAY ==
--- NOTE | 2019-10-20 09:36 | SUR.PREOP ---
10/20/2019 @ 0930--PHONE CALL MADE TO PATIENT. PATIENT UNDERSTANDS THAT LAB WORK AND COVID TESTING NEEDS TO BE COMPLETED @ 0930 ON 10/24/2019. PATIENT UNDERSTANDS IF LAB WORK AND COVID-19 TESTS ARE NOT COMPLETED BY 12PM ON THAT DATE, THE SURGERY SCHEDULED WILL BE CANCELLED AND RESCHEDULED FOR ANOTHER TIME.
[2019-10-20 16:05] VITALS: BMI 33.5
[2019-10-25 10:22] VITALS: BP 143/59; PULSE 58; RESP 18; TEMP 36.1; O2SAT 99
[2019-10-25 11:19] VITALS: BP 162/61; PULSE 57; RESP 20; TEMP 36.1; O2SAT 100
== END 2019-10-25 11:42 | disposition home or self-care (01) ==
LOC: OUTP 09:05
PROVIDERS: PCP Internal Medicine Adolescent Medicine; Visit Provider Ophthalmology
PROC: (CPT 66821; principal; 2019-10-25 09:00)
DX: H26.493 Other secondary cataract, bilateral (principal); Z96.1 Presence of intraocular lens; Z79.82 Long term (current) use of aspirin; Z79.51 Long term (current) use of inhaled steroids; Z79.899 Other long term (current) drug therapy; J44.9 Chronic obstructive pulmonary disease, unspecified; I10 Essential (primary) hypertension; E78.5 Hyperlipidemia, unspecified; I25.10 Atherosclerotic heart disease of native coronary artery without angina pectoris; Z95.5 Presence of coronary angioplasty implant and graft; E66.9 Obesity, unspecified; Z68.33 Body mass index [BMI] 33.0-33.9, adult
CPT/HCPCS: 66821

== ENCOUNTER 2019-11-04 17:43 | Emergency (ER) | payer MEDICARE, SELFPAY ==
--- NOTE | 2019-11-04 17:53 | XR_ITS ---
PROCEDURE: XR KNEE RT 3V CLINICAL INDICATION: fall, laceration Posttraumatic pain COMPARISON: KNEE3R KNEE-3 VIEWS-RT from 11/07/2016 FINDINGS: Prior ORIF of the patella with 2 longitudinal screws. No acute fracture or dislocation. Soft tissue gas is present in the infrapatellar region. Other findings:None. IMPRESSION: Postsurgical changes, no acute fracture. Soft tissue gas in the infrapatellar region consistent with laceration Dictated by: Roberto Whalen MD 11/04/2019 22:44 Electronically signed by Roberto Whalen MD in [facility] 11/04/2019 22:44
[2019-11-04 17:54] VITALS: BP 148/74; PULSE 80; RESP 20; TEMP 36.6; O2SAT 98; BMI 33.2
--- NOTE | 2019-11-04 18:06 | HMH.EDGENADL ---
ED Disposition Clinical Impression: Laceration of right knee Qualifiers: Encounter type: initial encounter Qualified Code(s): S81.011A - Laceration without foreign body, right knee, initial encounter Fall Qualifiers: Encounter type: initial encounter Qualified Code(s): W19.XXXA - Unspecified fall, initial encounter Disposition: Home, Self-Care Condition on Discharge: Good Instructions: DI for Laceration Repair Additional Instructions: You have been evaluated for fall, right knee laceration. Please keep area covered. You may shower as soon as tomorrow. Avoid soaking. Follow-up with your primary care doctor for wound check in 2 to 3 days. Have sutures removed in 7 to 10 days. Return to the emergency department for any new or worsening symptoms, pain, redness, fevers, chills. Referrals: Harmeet Yun MD [Primary Care Provider] - Time of Disposition: 19:15 - Critical Care Critical Care Time: No Attestation: On , the high probability of a clinically significant, sudden or life threatening deterioration of the following system(s) required my full and direct attention, intervention and personal management. The time I documented below is in addition to time spent performing reported procedures but includes the following listed in this critical care notation. Medical Decision Making - Morgan Inquiry Pt receiving controlled substance: No Vital Signs: 11/04/19 17:54 11/04/19 18:15 11/04/19 18:37 Temperature 98 F Temperature Source Oral Pulse Rate [Left Radial] 80 70 65 Respiratory Rate 20 20 20 Blood Pressure [Right Arm] 148/74 H 135/71 152/74 H Blood Pressure Mean [Right Arm] 98 92 100 Blood Pressure Source [Right Arm] Automatic Cuff Automatic Cuff Blood Pressure Position [Right Arm] Sitting Sitting Sitting 02 Sat by Pulse Oximetry 98 97 97 Oxygen Delivery Method Room Air - Lab Data Lab Results 11/04/19 18:36: WBC 11.1 H, RBC 4.86, Hgb 12.6, Hct 40.0, MCV 82.3, MCH 25.9 L, MCHC 31.5 L, RDW 14.5, Plt Count 219, MPV 10.8 H, Neut % (Auto) 73.3, Lymph % (Auto) 19.0, [place] % (Auto) 5.3, Eos % (Auto) 1.9, Baso % (Auto) 0.6, Neut # (Auto) 8.1 H, Lymph # (Auto) 2.1, [place] # (Auto) 0.6, Eos # (Auto) 0.2, Baso # (Auto) 0.1 11/04/19 18:36: Sodium 134 L, Potassium 3.9, Chloride 96 L, Carbon Dioxide 33 H, Anion Gap 8.9, BUN 9, Creatinine 0.70, Estimated Creat Clear 60, Estimated GFR 82, Est GFR ( Amer) 99, Glucose 114 H, Calcium 9.4, Total Bilirubin 0.4, AST 22, ALT 14, Alkaline Phosphatase 72, Troponin I < 0.01, Total Protein 7.0, Albumin 4.1, Globulin 2.9, Albumin/Globulin Ratio 1.4 Result diagrams: 11/04/19 18:36 11/04/19 18:36 Orders (Tests/Meds): ED MEDICATIONS Discontinued Medications Generic Name Dose Route Start Last Admin Trade Name Freq PRN Reason Stop Dose Admin Lidocaine HCl 10 ml 11/04/19 18:14 11/04/19 18:47 Lidocaine 1% 10ml Mdv SQ 11/04/19 18:15 10 ml ONCE ONE Administration Tetanus/Reduced Diphtheria/Acell Pertussis 0.5 ml 11/04/19 18:14 11/04/19 18:45 Adacel Tdap 0.5ml Syringe IM 11/04/19 18:15 0.5 ml .ONCE ONE Administration ORDERS Category Date Time Status XR knee RT 3V Stat Exams 11/04/19 17:53 Taken Troponin I Q3H Lab 11/04/19 21:00 Ordered Troponin I Q3H Lab 11/05/19 00:00 Ordered EKG Request [ECG Request by /Phyllis] Stat Y 11/04/19 17:54 Ordered - ECG Data Tracing #1 Sinus rhythm with ventricular rate of 65 bpm. QRS 62. QTc 420. No evidence of ischemia or arrhythmia. Medical Decision Narrative: In summary this is a 74-year-old female presenting to the emergency department with a laceration over her right patella. She has tenderness palpation and pain with slight flexion. Differential diagnoses include laceration, abrasion, soft tissue injury, patellar fracture. Plan to obtain plain film x-rays and reassess. Tetanus updated. Laboratory results are generally unremarkable. Initial troponin not elevated. EKG show
[2019-11-04 18:15] VITALS: BP 135/71; PULSE 70; RESP 20; O2SAT 97
[2019-11-04 18:37] VITALS: BP 152/74; PULSE 65; RESP 20; O2SAT 97
[2019-11-04 18:43] LABS: Basophils # 0.1 K/mm3 (0-0.2); Basophils % 0.6 % (0.1-2.0); Eosinophils # 0.2 K/mm3 (0.0-0.4); Eosinophils % 1.9 % (0.1-12.0); Hemoglobin 12.6 g/dL (12.2-16.2); Lymphocytes # 2.1 K/mm3 (0.7-4.5); Mean Corpuscular HGB Conc 31.5 g/dL (31.8-35.4); Mean Corpuscular Hemoglobin 25.9 pg (27.0-31.2); Mean Corpuscular Volume 82.3 fl (81-99); Mean Platelet Volume 10.8 fl (7.4-10.4); Monocytes # 0.6 K/mm3 (0.1-1.0); Monocytes % 5.3 % (1.7-9.3); Neutrophils # 8.1 K/mm3 (1.8-7.8); Neutrophils % 73.3 % (37.0-80.0); Platelet Count 219 K/mm3 (142-424); Red Blood Count 4.86 M/mm3 (4.20-5.40); Red Cell Distribution Width 14.5 % (11.5-17.5); White Blood Count 11.1 K/mm3 (4.8-10.8)
--- NOTE | 2019-11-04 18:43 | ECG_ITS ---
APPROVED REPORT Exam: Resting ECG HR:65 bpm ECG Measurements Heart Rate 65 AXES AZ 134 P 68 QRSd 62 QRS 58 QT 404 T 67 QTc 420 <Conclusion> Normal sinus rhythm Normal ECG Electronically signed by : Valentin Lindo, 11/07/2019 09:00:37
[2019-11-04 18:53] LABS: Alanine Aminotransferase 14 U/L (12-78); Albumin Level 4.1 g/dl (3.5-5.0); Albumin/Globulin Ratio 1.4 (1.1-1.8); Alkaline Phosphatase 72 U/L (38-126); Anion Gap 8.9 mEq/L (5-15); Aspartate Amino Transferase 22 U/L (14-36); Bilirubin,Total 0.4 mg/dl (0.2-1.3); Blood Urea Nitrogen 9 mg/dl (7-17); Calcium 9.4 mg/dl (8.4-10.2); Carbon Dioxide 33 mmol/L (22.0-30.0); Chloride 96 mmol/L (98-107); Creatinine Clearance Estimated 60 mL/min (50-200); Estimated Glomerular Filt Rate 82 ml/min (>60); GFR (African American) 99 ML/MIN (>60); Globulin 2.9 g/dL (1.3-3.2); Glucose 114 mg/dl (74-100); Potassium 3.9 mmoL/L (3.5-5.1); Sodium 134 mmol/L (136-145)
[2019-11-04 19:07] LABS: Troponin I < 0.01 ng/ml (0.00-0.034)
[2019-11-04 20:23] VITALS: BP 135/87; PULSE 73; RESP 18; TEMP 36.6; O2SAT 98
== END 2019-11-04 20:25 | disposition home or self-care (01) ==
PROVIDERS: Emergency Provider Emergency Medicine; PCP Internal Medicine Adolescent Medicine
DX: S81.011A Laceration without foreign body, right knee, initial encounter (principal); W18.39XA Other fall on same level, initial encounter; Y92.018 Other place in single-family (private) house as the place of occurrence of the external cause; J44.9 Chronic obstructive pulmonary disease, unspecified; I25.10 Atherosclerotic heart disease of native coronary artery without angina pectoris; F41.8 Other specified anxiety disorders; E78.5 Hyperlipidemia, unspecified; I10 Essential (primary) hypertension; Z87.891 Personal history of nicotine dependence; Z88.0 Allergy status to penicillin; Z88.2 Allergy status to sulfonamides; Z88.5 Allergy status to narcotic agent
CPT/HCPCS: 12002; 73562; 80053; 84484; 85025; 90471; 90715; 93005; 99284

== ENCOUNTER → 2020-01-02 14:36 | Outpatient (CLI) | payer MEDICARE, SELFPAY ==
[2020-01-02 15:12] LABS: Basophils % 0.3 % (0.1-2.0); Eosinophils # 0.1 K/mm3 (0.0-0.4); Eosinophils % 1.2 % (0.1-12.0); Hematocrit 40.1 % (37.0-47.0); Hemoglobin 12.9 g/dL (12.2-16.2); Lymphocytes # 2.1 K/mm3 (0.7-4.5); Lymphocytes % 20.8 % (10-50); Mean Corpuscular Hemoglobin 25.8 pg (27.0-31.2); Mean Corpuscular Volume 80.5 fl (81-99); Mean Platelet Volume 11.1 fl (7.4-10.4); Monocytes # 0.4 K/mm3 (0.1-1.0); Monocytes % 4.2 % (1.7-9.3); Neutrophils # 7.3 K/mm3 (1.8-7.8); Neutrophils % 73.4 % (37.0-80.0); Platelet Count 240 K/mm3 (142-424); Red Blood Count 4.98 M/mm3 (4.20-5.40); White Blood Count 9.9 K/mm3 (4.8-10.8)
[2020-01-02 16:16] LABS: Alanine Aminotransferase 12 U/L (12-78); Albumin Level 3.8 g/dl (3.5-5.0); Albumin/Globulin Ratio 1.6 (1.1-1.8); Alkaline Phosphatase 81 U/L (38-126); Anion Gap 10.2 mEq/L (5-15); Aspartate Amino Transferase 21 U/L (14-36); Bilirubin,Total 0.4 mg/dl (0.2-1.3); Blood Urea Nitrogen 11 mg/dl (7-17); Calcium 9.1 mg/dl (8.4-10.2); Carbon Dioxide 34 mmol/L (22.0-30.0); Chloride 93 mmol/L (98-107); Chol/HDL Ratio 2.4 (1-3.5); Cholesterol 147 mg/dl (140-200); Estimated Glomerular Filt Rate 121 ml/min (>60); GFR (African American) 146 ML/MIN (>60); Globulin 2.4 g/dL (1.3-3.2); Glucose 92 mg/dl (74-100); HDL Cholesterol 61 mg/dl (40-60); Potassium 4.2 mmoL/L (3.5-5.1); Sodium 133 mmol/L (136-145); Total Protein,Serum 6.2 g/dl (6.3-8.2); Triglycerides 134 mg/dl (30-150); VLDL Cholesterol 27 mg/dL (0-40)
[2020-01-02 16:26] LABS: Direct LDL Cholesterol 70.21 mg/dL (100-129)
[2020-01-02 17:45] LABS: 25-OH Vitamin D, Total 15.7 ng/mL (30-100)
== END ==
PROVIDERS: Visit Provider Nurse Practitioner Family
DX: J44.9 Chronic obstructive pulmonary disease, unspecified (principal); J01.00 Acute maxillary sinusitis, unspecified; I10 Essential (primary) hypertension; E78.5 Hyperlipidemia, unspecified; E55.9 Vitamin D deficiency, unspecified
CPT/HCPCS: 36415; 80053; 80061; 82306; 85025

== ENCOUNTER → 2020-02-16 06:18 | Outpatient (CLI) | payer MEDICARE, SELFPAY ==
--- NOTE | 2020-02-16 06:19 | US_ITS ---
APPROVED REPORT Exam Type: Lower Extremity Segmental Pressures Software Engineer Web Applications: Tameka Whalen RDCS Indications Claudication: Rest Pain: Numbness/Tingling Current Smoker History of Smoking CAD Pressures/Indices Right Indices Left Indices Brachial 135.00 mmHg Brachial 142.00 mmHg Low Thigh 160.00 mmHg 1.13 Low Thigh 161.00 mmHg 1.13 Calf 174.00 mmHg 1.23 Calf 161.00 mmHg 1.13 Ankle(PT) 178.00 mmHg 1.25 Ankle(PT) 174.00 mmHg 1.23 Ankle(DP) 171.00 mmHg 1.20 Ankle(DP) 166.00 mmHg 1.17 Digit 83.00 mmHg 0.58 Digit 109.00 mmHg 0.77 Findings R DANIELLE 1.25 L DANIELLE 1.23 R TBI .6 L TBI .8 NORMAL WAVEFORMS AND PULSES Conclusion R DANIELLE 1.25 L DANIELLE 1.23 R TBI .6 L TBI .8 NORMAL WAVEFORMS AND PULSES Normal appearing resting noninvasive lower extremity arterial study. Electronically signed by : Roberto Whalen MD 02/16/2020 16:11:10
--- NOTE | 2020-02-16 06:19 | CA_ITS ---
APPROVED REPORT Exam: Pharmacologic Technologist: Alyx Hernandez, Ht: 4 ft 8 in Wt: 163 lbs BSA: 1.63 m2 HR: 66 bpm BP: 140/66 mmHg Rhythm: NSR,NORMAL Medical History Medical History: HTN Medications: Amlodipine,,,,, Metoprolol,,,,, Asa,,,,, Lexapro,,,,, Diazepam,,,,, Pantoprazole,,,,, Lyrica,,,,, Albuterol,,,,, Montelukast,,,,, Zanaflex,,,,, [place],,,,, Nitro,,,,, Cardiac Risk Factors: HTN, FHX of CAD Stress Test Details Test: LEXISCAN Reversal agent Aminophyline 100.0 mg, given intravenously for other. HR Resting HR: 70 bpm Max Heart Rate (APMHR): 146 bpm Max HR Achieved: 101 bpm Target HR (85% APMHR): 124 bpm % of APMHR: 69 Recovery HR: 86 bpm BP Resting BP: 140.0/66.0 mmHg Max BP: 171.0/72.0 mmHg Recovery BP: 149.0/60.0 mmHg ECG Resting ECG: NSR,NORMAL Clinical Exercise duration: 04:01 min Highest Stage Achieved: Exercise capacity: 1.0 METs Stress ECG Conclusion DURING INFUSION OF LEXISCAN PATIENT HAD SOA,NAUSEA AND MALAISE. NO CHEST PAIN. RARE PVC. NO SIGNIFICANT ST-T CHANGES. UNREMARKABLE LEXISCAN STRESS. MYOVIEW IMAGES REPORTED SEPARATELY. Test Summary REST . . . . . . . Sitting REST . . . . . . . Sitting REST 04:14 . . 70 . 140/ 66 . . Stage 1 . . . . . . . Cardiolite injected Stage 1 01:00 . . 95 . . . . Stage 2 01:00 . . 98 . 145/ 74 . . Stage 3 01:00 . . 93 . 171/ 72 . . Stage 4 01:00 . . 91 . . . . Stage 4 01:01 . . 91 . . . Stop exercise at 04:01 RECOVERY 01:00 . . 87 . 148/ 59 . . RECOVERY 02:00 . . 86 . 149/ 60 . . RECOVERY 03:00 . . 82 . 143/ 60 . . RECOVERY 04:00 . . 76 . 143/ 60 . . RECOVERY 05:00 . . 80 . 142/ 63 . . RECOVERY 05:15 . . 77 . 142/ 63 . . Electronically signed by : Dariusz Magallon, 02/16/2020 14:25:28
--- NOTE | 2020-02-16 06:19 | NM_ITS ---
APPROVED REPORT Exam: Nuclear Stress Test Indication: chest pain..short of breath..fatigue Patient Location: Outpatient Stress Tech: Halima David HI Tech:BRII Hitchcock RT(R)(N) Ht: 5 ft 0 in Wt: 161 lbs Bra Size: xl HR: 66 bpm BP: 140/66 mmHg BSA: 1.70 m2 History: chest pain..short of breath..fatigue Procedure: Patient received a 0.4 mg of intravenous Lexiscan, resting heart rate 66 bpm, resting blood pressure 140/66 mmHg, with Lexiscan maximum heart rate achived was 99 bpm which is Then 85 % of the maximum predicted heart rate and blood pressure was 171/72 mmHg. With Lexiscan, patient denied any complaint of chest pain. Electrocardiogram Resting electrocardiogram showed sinus rhythm, with Lexiscan there is less than 1.[address] segment depression noted from the baseline EKG. The EKG portion of the Lexiscan Myoview is nondiagnostic. Cardiac Stress and Resting SPECT Images: Cardiac Stress and Resting SPECT images were obtained using technetium 99m Myoview 32.6 mCi stress and 10.84 mCi at rest. Gated SPECT for analysis of segmental wall motion and calculation of the ejection fraction also done. Cardiac stress and resting SPECT images show uniform myocardial activity without segmental perfusion abnormality, computer derived ejection fraction is over 65% with no regional wall motion abnormality, right ventricle is normal size and contractility. Conclusion: 1. The EKG portion of the Lexiscan Myoview is nondiagnostic. 2. No scintigraphic evidence of reversible ischemia seen, computer derived ejection fraction is over 65% with no regional wall motion abnormality, right ventricle is normal size and contractility. 3. Normal Lexiscan Myoview study. Electronically signed by : Dariusz Magallon, 02/16/2020 14:18:04
--- NOTE | 2020-02-16 06:19 | CA_ITS ---
APPROVED REPORT EXAM: Comprehensive 2D, Doppler, and color-flow Echocardiogram Mri Assistant: Tameka Whalen RDCS Ht: 5 ft 6 in Wt: 163lbs BSA: 1.83 BP: 157/63 mmHg Indications: CP,COPD,SMOKER,HTN,SOA,OBESITY 2D Dimensions LVOT 1.95 cm (M/F) 1.5-2.5 M-Mode Dimensions RVDd 2.78 cm (0.9-2.6) LVDd 5.52 cm (3.5-5.7) LVDs 4.07 cm (3.5-5.7) IVSd 0.60 cm (0.6-1.1) PWd 0.68 cm (0.6-1.1) EF (Teich) 51.00% FS 26.30% EDV (Teich) 148.70 mL ESV (Teich) 72.90 mL LV Diastology E/A Ratio 0.69 Mitral Valve MV A Velocity 104.00 (40-130 cm/s) Left Ventricle Left atrium is mildly enlarged, left ventricle is normal size, mild concentric left ventricular hypertrophy, visually estimated ejection fraction 55% with no regional wall motion abnormality, grade 1 diastolic dysfunction seen without tissue Doppler evidence of raise left atrial pressure. Right Ventricle Right atrium and right ventricle mildly enlarged with normal contractility. Aortic Valve Aortic valve is minimally thickened and fibrosed, there is no aortic stenosis or aortic insufficiency. Mitral Valve Mitral valve leaflets are minimally thickened, there is mild mitral regurgitation. Tricuspid Valve Tricuspid valve is grossly normal, there is mild tricuspid regurgitation, tricuspid regurgitation jet velocity is inadequate for calculation of the right ventricular systolic pressure. Pulmonic Valve Pulmonic valve is poorly visualized. Great Vessels Aortic root is normal size. Pericardium No significant pericardial effusion noted. Conclusion 1. Mild biatrial enlargement, normal left ventricular size, mild concentric left ventricular hypertrophy, visually estimated ejection fraction 55% with no regional wall motion abnormality, grade 1 diastolic dysfunction seen without tissue Doppler evidence of raise left atrial pressure. 2. Mildly enlarged right ventricle with normal contractility. 3. Mild mitral and tricuspid regurgitation. 4. No significant pericardial effusion noted. Electronically signed by : Dariusz Magallon, 02/16/2020 16:12:38
--- NOTE | 2020-02-16 09:23 | HMH.ITSHM ---
Current Home Medications as stated by this patient Rose Page or sales service representative. [] asa benzonatate diazepam lexapro metoprolol singulair nitro protonix lyrica tizanidine
== END ==
PROVIDERS: PCP Internal Medicine Adolescent Medicine; Visit Provider Nurse Practitioner Family
DX: R06.00 Dyspnea, unspecified (principal); E66.9 Obesity, unspecified; E78.5 Hyperlipidemia, unspecified; I10 Essential (primary) hypertension; I20.9 Angina pectoris, unspecified; I73.9 Peripheral vascular disease, unspecified; J44.9 Chronic obstructive pulmonary disease, unspecified; M79.604 Pain in right leg; M79.605 Pain in left leg; R00.1 Bradycardia, unspecified; Z95.5 Presence of coronary angioplasty implant and graft
CPT/HCPCS: 78452; 93017; 93306; 93923; A9502; J2785

== ENCOUNTER 2020-02-21 13:58 | Emergency (ER) | payer MEDICARE, SELFPAY ==
[2020-02-21 14:19] VITALS: BP 130/66; PULSE 74; RESP 14; O2SAT 98; BMI 31.2
[2020-02-21 15:10] VITALS: BP 130/66; PULSE 74; RESP 14; TEMP 36.7; O2SAT 98
--- NOTE | 2020-02-21 15:13 | PC.NURSE ---
Patient stated that she does not need to be seen by the provider. Stated she is just here for her Flu shot.
== END 2020-02-21 15:13 | disposition home or self-care (01) ==
LOC: UTC 14:05
PROVIDERS: Emergency Provider Nurse Practitioner; PCP Internal Medicine Adolescent Medicine
DX: M13.822 Other specified arthritis, left elbow (principal); Z23 Encounter for immunization
CPT/HCPCS: G0463; 90471; 90686; 99201

== ENCOUNTER → 2020-10-25 08:37 | Outpatient (CLI) | payer MEDICARE, SELFPAY ==
[2020-10-25 08:57] LABS: Alanine Aminotransferase 11 U/L (12-78); Albumin/Globulin Ratio 1.7 (1.1-1.8); Alkaline Phosphatase 66 U/L (38-126); Anion Gap 4.8 mEq/L (5-15); Aspartate Amino Transferase 22 U/L (14-36); Bilirubin,Total 0.5 mg/dl (0.2-1.3); Blood Urea Nitrogen 5 mg/dl (7-17); Calcium 8.8 mg/dl (8.4-10.2); Carbon Dioxide 39 mmol/L (22.0-30.0); Chloride 94 mmol/L (98-107); Estimated Glomerular Filt Rate 156 ml/min (>60); GFR (African American) 188 ML/MIN (>60); Globulin 2.4 g/dL (1.3-3.2); Glucose 106 mg/dl (74-100); Potassium 3.8 mmoL/L (3.5-5.1); Sodium 134 mmol/L (136-145); Total Protein,Serum 6.4 g/dl (6.3-8.2)
--- NOTE | 2020-10-25 09:09 | CT_ITS ---
PROCEDURE: CT ABDOMEN PELVIS W CON CLINICAL INDICATION: RT LUNG CA STAGE I Follow up No chest symptoms C/o hiatal hernia Some vomiting Prior on pacs COMPARISON: CT CHESTW CT chest w con from 07/12/[address] ABDOMEN PELVIS W CON from 09/01/2019 TECHNIQUE: IV Contrast: 75ML Isovue 370 Oral Contrast None Axial images obtained with sagittal and coronal reformats. All CT scans at the facility use one or more dose reduction, viz: automated exposure control, ma/kV adjustment per patient size (including targeted exams where dose is matched to indication, i.e. head), or iterative reconstruction technique. FINDINGS: LOWER THORAX: Please see chest CT report ABDOMEN & PELVIS: Liver, spleen, pancreas, and kidneys have an unremarkable appearance. Mild nodularity left adrenal gland once again noted slightly more prominent but maintains I so density and may be due to adenomatous involvement. Continued follow-up suggested.. No intestinal obstruction or free air. No evidence of appendicitis. There is colonic diverticulosis but no evidence of diverticulitis. There has been a prior hysterectomy. No intra-abdominal or pelvic mass or adenopathy. Sclerotic foci of the sacrum, left ischium and T11, and right femoral head once again noted and may be due to bone islands unchanged. IMPRESSION: No convincing evidence of metastatic disease. The left adrenal gland nodularity is slightly more prominent but may be due to adenomatous involvement. Continued follow-up suggested Dictated by: Roberto Whalen MD 10/26/2020 09:13 Roberto Whalen MD in [facility] 10/26/2020 09:13
--- NOTE | 2020-10-25 09:09 | CT_ITS ---
PROCEDURE: CT CHEST W CON CLINCAL INDICATION: RT LUNG CA STAGE I Follow up No chest symptoms C/o hiatal hernia Some vomiting COMPARISON: CT CT CHEST W CON from 09/01/2019 TECHNIQUE: IV Contrast: 75ml Isovue 370 Axial images obtained with sagittal and coronal reformats. All CT scans at the facility use one or more dose reduction, viz: automated exposure control, ma/kV adjustment per patient size (including targeted exams where dose is matched to indication, i.e. head), or iterative reconstruction technique. FINDINGS: HEART AND MEDIASTINAL STRUCTURES: There are small bilateral thyroid nodules less than 1 cm. There is a precarinal lymph node slightly larger at 1.5 cm previously 1.3 cm. Mildly prominent right hilar nodes also slightly larger the largest of which measures 1.9 by 1 cm previously measuring 1.3 by 0.7 cm. Aortic and coronary artery calcifications are present. LUNGS AND PLEURAL SPACES: COPD with centrilobular emphysema a cluster of small ground-glass opacities are present in the right lower lobe anteriorly. These have developed since the previous exam and could represent an area pneumonia having a tree in bud pattern. An irregular area of parenchymal opacification is present in the right lower lobe posteriorly. The size is not significantly changed however, the density is increased. This measures approximately 2 cm AP and 1.1 cm transverse. A new area of irregular opacification is present in the left upper lobe medially possibly due to an area of postinflammatory scarring.. There is a small parenchymal opacity in the left lower lobe posteriorly at 9 mm not significantly changed. Calcified granulomas are noted. BONY STRUCTURES: Wedge compression changes have developed at the T5 vertebral body with some bony sclerosis along the inferior aspect. No retropulsion. There is loss of height anteriorly of approximately 40 percent. UPPER ABDOMEN: See abdomen report ADDITIONAL FINDINGS: No other significant abnormalities. IMPRESSION: 1. Centrilobular emphysema with scattered areas of scarring. 2. New irregular parenchymal opacity in the left upper lobe which could be due to an area of postinflammatory scarring. Irregular parenchymal opacity in the right lower lobe inferiorly has slightly increased in size with some increase in density. These areas could be due to postinflammatory scarring. Neoplasm is not excluded. PET CT may provide further evaluation. If that is not performed then, would suggest a 3 to six-month follow-up. 3. Mediastinal right hilar lymph nodes have slightly increased in size which could be neoplastic or reactive. Dictated by: Roberto Whalen MD 10/26/2020 09:01 Roberto Whalen MD in [place] 10/26/2020 09:01
== END ==
PROVIDERS: PCP Internal Medicine Adolescent Medicine; Visit Provider Internal Medicine Medical Oncology
DX: C34.91 Malignant neoplasm of unspecified part of right bronchus or lung (principal); Z03.89 Encounter for observation for other suspected diseases and conditions ruled out
CPT/HCPCS: 36415; 71260; 74177; 80053; Q9967

== ENCOUNTER → 2021-02-19 12:53 | Outpatient (CLI) | payer MEDICARE, SELFPAY | PROVIDERS: PCP Internal Medicine Adolescent Medicine; Visit Provider Nurse Practitioner | DX: Z20.822 Contact with and (suspected) exposure to COVID-19 (principal) | CPT/HCPCS: C9803; U0003; U0005 ==

== ENCOUNTER → 2021-03-19 14:21 | Outpatient (CLI) | payer MEDICARE, SELFPAY | PROVIDERS: Visit Provider Nurse Practitioner | DX: Z20.822 Contact with and (suspected) exposure to COVID-19 (principal) | CPT/HCPCS: C9803; U0003; U0005 ==

== ENCOUNTER 2021-04-21 05:10 | Emergency (ER) | payer MEDICARE, SELFPAY ==
[2021-04-21] VITALS (10 sets, daily range): BP systolic 98–149; BP diastolic 50–119; PULSE 59–78; RESP 18–24; TEMP 36.6–37.1; O2SAT 95–99; BMI 27.5
--- NOTE | 2021-04-21 05:23 | ECG_ITS ---
APPROVED REPORT Exam: Resting ECG HR:58 bpm ECG Measurements Heart Rate 58 AXES QRSd 58 QRS 67 QT 412 T 77 QTc 404 Conclusion Junctional rhythm Nonspecific ST abnormality Abnormal ECG Electronically signed by : Harmeet Yun MD 04/21/2021 15:35:43
[2021-04-21 05:25] LABS: Basophils # 0.2 K/mm3 (0-0.2); Basophils % 1.9 % (0.1-2.0); Eosinophils # 0.3 K/mm3 (0.0-0.4); Eosinophils % 3.4 % (0.1-12.0); Hematocrit 39.2 % (37.0-47.0); Hemoglobin 12.4 g/dL (12.2-16.2); Lymphocytes # 2.9 K/mm3 (0.7-4.5); Lymphocytes % 29.4 % (10-50); Mean Corpuscular HGB Conc 31.6 g/dL (31.8-35.4); Mean Corpuscular Volume 82.2 fl (81-99); Mean Platelet Volume 11.9 fl (7.4-10.4); Monocytes # 0.5 K/mm3 (0.1-1.0); Monocytes % 5.6 % (1.7-9.3); Neutrophils # 5.9 K/mm3 (1.8-7.8); Neutrophils % 59.8 % (37.0-80.0); Platelet Count 250 K/mm3 (142-424); Red Blood Count 4.78 M/mm3 (4.20-5.40); Red Cell Distribution Width 13.7 % (11.5-17.5); White Blood Count 9.8 K/mm3 (4.8-10.8)
[2021-04-21 05:35] LABS: Lactic Acid 0.6 mmol/L (0.7-2.1)
[2021-04-21 05:36] LABS: Coronavirus 19, PCR Not Detected (NotDetected); Influenza A, PCR Not Detected (NotDetected); Influenza B, PCR Not Detected (NotDetected)
[2021-04-21 05:37] LABS: Alanine Aminotransferase 12 U/L (12-78); Albumin Level 4.1 g/dl (3.5-5.0); Albumin/Globulin Ratio 1.6 (1.1-1.8); Alkaline Phosphatase 62 U/L (38-126); Aspartate Amino Transferase 22 U/L (14-36); Blood Urea Nitrogen 17 mg/dl (7-17); Calcium 8.8 mg/dl (8.4-10.2); Chloride 92 mmol/L (98-107); Creatinine Clearance Estimated 49 mL/min (50-200); Estimated Glomerular Filt Rate 120 ml/min (>60); GFR (African American) 146 ML/MIN (>60); Globulin 2.6 g/dL (1.3-3.2); Glucose 114 mg/dl (74-100); Potassium 4.3 mmoL/L (3.5-5.1); Sodium 133 mmol/L (136-145); Total Protein,Serum 6.7 g/dl (6.3-8.2)
[2021-04-21 05:41] LABS: C-Reactive Protein 4.4 mg/L (0-4)
[2021-04-21 05:44] LABS: Anion Gap 6.3 mEq/L (5-15); Carbon Dioxide 39 mmol/L (22.0-30.0)
[2021-04-21 05:46] LABS: Bilirubin,Total < 0.1 mg/dl (0.2-1.3)
--- NOTE | 2021-04-21 05:46 | XR_ITS ---
PROCEDURE INFORMATION: Exam: XR Chest Exam date and time: 04/21/2021 5:46 AM Age: 75 years old Clinical indication: Pain; Chest pressure; Additional info: Cp TECHNIQUE: Imaging protocol: XR of the chest. Views: 1 view. COMPARISON: CT CHEST W CON 10/25/2020 9:41 AM FINDINGS: Lungs: Streaky right basilar airspace opacity. Pleural spaces: Unremarkable. No pleural effusion. No pneumothorax. Heart/Mediastinum: Unremarkable. No cardiomegaly. Bones/joints: Unremarkable. IMPRESSION: Streaky right basilar airspace opacity is favored to reflect atelectasis.
[2021-04-21 05:51] LABS: Erythrocyte Sedimentation Rate 10 mm/hr (0-30)
[2021-04-21 05:57] LABS: Procalcitonin < 0.030 ng/mL (0.0-2.0); Troponin I < 0.01 ng/ml (0.00-0.034)
[2021-04-21 06:00] LABS: Amylase 57 U/L (30-110); Lipase 53 U/L (23-300)
[2021-04-21 06:18] LABS: Free T4 (Free Thyroxine) 1.13 ng/dl (0.78-2.19)
[2021-04-21 06:32] LABS: Thyroid Stimulating Hormone 1.63 uIU/mL (0.465-4.68)
--- NOTE | 2021-04-21 07:22 | HMH.EDCP ---
ED Disposition Clinical Impression: Chest pain Qualifiers: Chest pain type: precordial pain Qualified Code(s): R07.2 - Precordial pain Disposition: Home, Self-Care Condition on Discharge: Good Instructions: DI for Chest Pain Additional Instructions: recheck if needed and see pcp in am Referrals: Harmeet Yun MD [Primary Care Provider] - - Critical Care Critical Care Time: No Attestation: On 04/21/21, the high probability of a clinically significant, sudden or life threatening deterioration of the following system(s) required my full and direct attention, intervention and personal management. The time I documented below is in addition to time spent performing reported procedures but includes the following listed in this critical care notation. Medical Decision Making - Medical Records Medical records reviewed: Yes: I reviewed the patient's medical records. - Morgan Inquiry Pt receiving controlled substance: No Vital Signs: 04/21/21 05:09 04/21/21 05:35 04/21/21 06:01 Temperature 97.9 F Temperature Source Oral Pulse Rate 59 L 60 Pulse Rate [Right] 60 Respiratory Rate 24 18 20 Blood Pressure 98/50 L 133/65 Blood Pressure [Right Arm] 107/77 L Blood Pressure Mean Blood Pressure Mean [Right Arm] 87 02 Sat by Pulse Oximetry 95 96 95 Oxygen Delivery Method Nasal Cannula Oxygen Flow Rate (LPM) 3 3 3 04/21/21 06:30 04/21/21 07:00 04/21/21 07:31 Temperature Temperature Source Pulse Rate 64 64 60 Pulse Rate [Right] Respiratory Rate 18 18 20 Blood Pressure 140/69 149/73 H 134/67 Blood Pressure [Right Arm] Blood Pressure Mean 94 98 89 Blood Pressure Mean [Right Arm] 02 Sat by Pulse Oximetry 99 97 95 Oxygen Delivery Method Oxygen Flow Rate (LPM) 04/21/21 08:01 04/21/21 08:31 Temperature Temperature Source Pulse Rate 64 Pulse Rate [Right] Respiratory Rate 20 20 Blood Pressure 127/71 140/63 Blood Pressure [Right Arm] Blood Pressure Mean 92 88 Blood Pressure Mean [Right Arm] 02 Sat by Pulse Oximetry 99 98 Oxygen Delivery Method Oxygen Flow Rate (LPM) - Lab Data Lab results reviewed: Yes: I reviewed the patient's lab results. Lab Results 04/21/21 05:11: WBC 9.8, RBC 4.78, Hgb 12.4, Hct 39.2, MCV 82.2, MCH 26.0 L, MCHC 31.6 L, RDW 13.7, Plt Count 250, MPV 11.9 H, Neut % (Auto) 59.8, Lymph % (Auto) 29.4, [place] % (Auto) 5.6, Eos % (Auto) 3.4, Baso % (Auto) 1.9, Neut # (Auto) 5.9, Lymph # (Auto) 2.9, [place] # (Auto) 0.5, Eos # (Auto) 0.3, Baso # (Auto) 0.2, ESR 10 04/21/21 05:11: Sodium 133 L, Potassium 4.3, Chloride 92 L, Carbon Dioxide 39 H, Anion Gap 6.3, BUN 17, Creatinine 0.50 L, Estimated Creat Clear 49, Estimated GFR 120, Est GFR ( Amer) 146, Glucose 114 H, Calcium 8.8, Total Bilirubin < 0.1 L, AST 22, ALT 12, Alkaline Phosphatase 62, Troponin I < 0.01, C-Reactive Protein 4.4 H, Total Protein 6.7, Albumin 4.1, Globulin 2.6, Albumin/Globulin Ratio 1.6, Procalcitonin < 0.030 04/21/21 05:11: Lactate 0.6 L 04/21/21 05:11: Amylase 57, Lipase 53, TSH 1.63 04/21/21 05:11: Free T4 1.13 04/21/21 05:33: SARS-CoV-2 (PCR) Not detected, Influenza A Untype (PCR) Not detected, Influenza Type B (PCR) Not detected 04/21/21 08:50: Troponin I < 0.01 Result diagrams: 04/21/21 05:11 04/21/21 05:11 Orders (Tests/Meds): ED MEDICATIONS Discontinued Medications Generic Name Dose Route Start Last Admin Trade Name Freq PRN Reason Stop Dose Admin Aspirin 324 mg 04/21/21 05:17 04/21/21 05:21 Aspirin 81mg Chewable Tablet PO 04/21/21 05:18 324 mg ONCE ONE Administration Famotidine 20 mg 04/21/21 05:41 Famotidine 20mg/2ml Vial IV 04/21/21 05:42 ONCE ONE Sodium Chloride 1,000 mls @ 999 mls/hr 04/21/21 05:30 04/21/21 05:22 Sod Chlor 0.9% 1000ml Bag IV 04/21/21 06:30 999 mls/hr .Q1H1M MARI Administration Metoclopramide HCl 10 mg 04/21/21 05:41 Metoclopramide Hcl 10mg/2ml Vial IVP 04/21/21 05:42 ONCE ONE
[2021-04-21 09:20] LABS: Troponin I < 0.01 ng/ml (0.00-0.034)
== END 2021-04-21 09:59 | disposition home or self-care (01) ==
PROVIDERS: Emergency Provider Emergency Medicine; PCP Internal Medicine Adolescent Medicine
DX: R07.2 Precordial pain (principal); R42 Dizziness and giddiness; F41.8 Other specified anxiety disorders; I25.10 Atherosclerotic heart disease of native coronary artery without angina pectoris; J44.9 Chronic obstructive pulmonary disease, unspecified; E78.5 Hyperlipidemia, unspecified; I10 Essential (primary) hypertension; Z79.899 Other long term (current) drug therapy
CPT/HCPCS: 71045; 80053; 82150; 83605; 83690; 84145; 84439; 84443; 84484; 85025; 85651; 86140; 87040; 93005; 96365; 96375; 99284; C9803; J2405; U0003; U0005

== ENCOUNTER 2021-06-13 13:12 | Inpatient (IN) | payer MEDICARE, SELFPAY ==
[2021-06-13] VITALS (11 sets, daily range): BP systolic 130–164; BP diastolic 56–89; PULSE 101–124; RESP 16–32; TEMP 36.7–37; O2SAT 90–98; BMI 26.2; BMI 261670.4; BMI 25.9
--- NOTE | 2021-06-13 13:21 | XR_ITS ---
FINAL REPORT CLINICAL HISTORY: sob, smoker COMPARISON: 04/21/2021 FINDINGS: SINGLE VIEW CHEST The heart is normal in size. The mediastinum is unremarkable. There is worsening right base opacity, may represent pneumonia or atelectasis. There is no pneumothorax. IMPRESSION: Right base opacity, may represent pneumonia or atelectasis. Reviewed, Interpreted and Dictated by Abdias Love III, MD Transcribed by Carol Mireles Authenticated by Abdias Love III, MD on 06/13/2021 03:13:04 PM [facility]
[2021-06-13 13:32] LABS: Coronavirus 19, PCR Not Detected (NotDetected); Influenza A, PCR Not Detected (NotDetected); Influenza B, PCR Not Detected (NotDetected)
[2021-06-13 13:33] LABS: ABG Base Excess 7.4 mmol/L (-2.4-2.3); ABG HCO3 32.8 mmhg (22.0-26.0); ABG Oxygen Saturation 97 % (90-100); ABG PH 7.36 mmol/L (7.35-7.45); ABG PO2 89.4 mmhg (80-100); ABG TCO2 34.6 mmhg (23-27)
[2021-06-13 13:35] LABS: Allen's Test ACCEPTABLE; Oxygen 8 LPM %
[2021-06-13 13:36] LABS: ABG PCO2 58.8 mmhg (35.0-45.0); Source Right Radial
[2021-06-13 13:44] LABS: Alanine Aminotransferase 20 U/L (12-78); Albumin Level 4.7 g/dl (3.5-5.0); Albumin/Globulin Ratio 1.7 (1.1-1.8); Alkaline Phosphatase 86 U/L (38-126); Aspartate Amino Transferase 34 U/L (14-36); Bilirubin,Total 0.4 mg/dl (0.2-1.3); Blood Urea Nitrogen 5 mg/dl (7-17); Calcium 9.5 mg/dl (8.4-10.2); Chloride 81 mmol/L (98-107); Creatinine Clearance Estimated 47 mL/min (50-200); Estimated Glomerular Filt Rate 156 ml/min (>60); GFR (African American) 188 ML/MIN (>60); Globulin 2.8 g/dL (1.3-3.2); Glucose 92 mg/dl (74-100); Potassium 3.7 mmoL/L (3.5-5.1); Sodium 129 mmol/L (136-145); Total Protein,Serum 7.5 g/dl (6.3-8.2)
--- NOTE | 2021-06-13 14:05 | ECG_ITS ---
APPROVED REPORT Exam: Resting ECG HR:109 bpm ECG Measurements Heart Rate 109 AXES [place] 122 P 83 QRSd 58 QRS 68 QT 328 T 72 QTc 441 Conclusion Sinus tachycardia with occasional premature ventricular complexes Septal infarct, age undetermined ST & T wave abnormality, consider inferolateral ischemia Abnormal ECG Electronically signed by : Harmeet Yun MD 06/14/2021 17:34:34
[2021-06-13 14:10] LABS: Troponin I < 0.01 ng/ml (0.00-0.034)
[2021-06-13 14:11] LABS: Anion Gap 10.7 mEq/L (5-15); Carbon Dioxide 41 mmol/L (22.0-30.0)
[2021-06-13 14:17] LABS: Basophils # 0.1 K/mm3 (0-0.2); Basophils % 0.6 % (0.1-2.0); Eosinophils # 0.1 K/mm3 (0.0-0.4); Eosinophils % 1.3 % (0.1-12.0); Hematocrit 43.9 % (37.0-47.0); Hemoglobin 13.8 g/dL (12.2-16.2); Lymphocytes # 1.7 K/mm3 (0.7-4.5); Lymphocytes % 15.9 % (10-50); Mean Corpuscular HGB Conc 31.3 g/dL (31.8-35.4); Mean Corpuscular Hemoglobin 25.6 pg (27.0-31.2); Mean Corpuscular Volume 81.8 fl (81-99); Mean Platelet Volume 11.5 fl (7.4-10.4); Monocytes # 0.4 K/mm3 (0.1-1.0); Monocytes % 3.8 % (1.7-9.3); Neutrophils # 8.4 K/mm3 (1.8-7.8); Neutrophils % 78.4 % (37.0-80.0); Platelet Count 255 K/mm3 (142-424); Red Blood Count 5.37 M/mm3 (4.20-5.40); White Blood Count 10.7 K/mm3 (4.8-10.8)
--- NOTE | 2021-06-13 14:49 | PC.NURSE ---
DR PORTER SPEAKING WITH DR SANCHEZ
--- NOTE | 2021-06-13 14:56 | PC.NURSE ---
PATIENT SENT TO ER PER Grady MONTESINOS APRN FOR FURTHER EVALUATION. REPORT GIVEN TO Terrance MAI RN BY Grady MONTESINOS APRN
--- NOTE | 2021-06-13 14:57 | PC.NURSE ---
DR GILL IS PT'S PCP , MESSAGE LEFT FOR HIM
--- NOTE | 2021-06-13 15:02 | HMH.EDGENADL ---
ED Disposition Clinical Impression: COPD exacerbation CAP (community acquired pneumonia) Qualifiers: Laterality: unspecified laterality Qualified Code(s): J18.9 - Pneumonia, unspecified organism Disposition: Admitted as Observation Condition on Discharge: Good Referrals: Stephanie Pierre APRN [Primary Care Provider] - - Critical Care Critical Care Time: Yes Attestation: On 06/13/21, the high probability of a clinically significant, sudden or life threatening deterioration of the following system(s) required my full and direct attention, intervention and personal management. The time I documented below is in addition to time spent performing reported procedures but includes the following listed in this critical care notation. Vital system(s) involved:: Respiratory Failure My critical care processes included: Data Review/Interpretation, Coordinating Care, Medication Orders and management, Documentation Medical Decision Making - Morgan Inquiry Pt receiving controlled substance: No - Lab Data Lab Results 06/13/21 13:00: WBC 10.7, RBC 5.37, Hgb 13.8, Hct 43.9, MCV 81.8, MCH 25.6 L, MCHC 31.3 L, RDW 14.0, Plt Count 255, MPV 11.5 H, Neut % (Auto) 78.4, Lymph % (Auto) 15.9, [place] % (Auto) 3.8, Eos % (Auto) 1.3, Baso % (Auto) 0.6, Neut # (Auto) 8.4 H, Lymph # (Auto) 1.7, [place] # (Auto) 0.4, Eos # (Auto) 0.1, Baso # (Auto) 0.1 06/13/21 13:00: Sodium 129 L, Potassium 3.7, Chloride 81 L, Carbon Dioxide 41 H*, Anion Gap 10.7, BUN 5 L, Creatinine 0.40 L, Estimated Creat Clear 47, Estimated GFR 156, Est GFR ( Amer) 188, Glucose 92, Calcium 9.5, Total Bilirubin 0.4, AST 34, ALT 20, Alkaline Phosphatase 86, Troponin I < 0.01, Total Protein 7.5, Albumin 4.7, Globulin 2.8, Albumin/Globulin Ratio 1.7 06/13/21 13:00: Lactate 1.0 06/13/21 13:15: SARS-CoV-2 (PCR) Not detected, Influenza A Untype (PCR) Not detected, Influenza Type B (PCR) Not detected 06/13/21 13:23: Specimen Source Right radial, O2 % 8 lpm, ABG pH 7.36, ABG pCO2 58.8 H, ABG pO2 89.4, ABG HCO3 32.8 H, ABG Total CO2 34.6 H, ABG O2 Saturation 97, ABG Base Excess 7.4 H, Roberto Test Acceptable Result diagrams: 06/13/21 13:00 06/13/21 13:00 Orders (Tests/Meds): ED MEDICATIONS Discontinued Medications Generic Name Dose Route Start Last Admin Trade Name Freq PRN Reason Stop Dose Admin Albuterol/Ipratropium 3 ml 06/13/21 13:23 Ipratropium/Albuterol 3 Ml Neb IH 06/13/21 13:24 ONCE ONE Methylprednisolone Sodium Succinate 125 mg 06/13/21 13:19 06/13/21 13:37 Methylprednisolone Sod Succ 125mg Vial IV 06/13/21 13:20 125 mg ONCE ONE Administration ORDERS Category Date Time Status XR chest portable Stat Exams 06/13/21 13:21 Taken Troponin I Q3H Lab 06/13/21 16:30 Ordered Troponin I Q3H Lab 06/13/21 19:30 Ordered Blood Culture Stat Micro 06/13/21 13:13 Received - Physician Consults Physician Consulted: dr ozuna Medical Decision Narrative: reeval, 3pm improved wob, still with mild tacypnea and wheezing dennis discussed with dr ozuna accepts here General Adult HPI - General Stated complaint: SOA Time Seen by Provider: 06/13/21 13:15 Mode of Arrival: EMS Source of Information: Patient Limitations: No Limitations - Related Data Home Medications Medication Instructions Recorded Confirmed aspirin 81 mg tablet,delayed 81 mg PO HS 06/29/17 04/21/21 release pregabalin 150 mg capsule 150 mg PO BID 06/29/17 04/21/21 Montelukast Sodium [Montelukast 10 mg PO HS 03/07/18 04/21/21 10mg Tab] fluticasone furoate 100 1 puff INHALATION DAILY 04/20/18 04/21/21 mcg/actuation blister powder for inhalation multivit with 1 tab PO DAILY 04/20/18 04/21/21 jshdyens-ijqi-VQ-lutein 8 mg iron-400 mcg-300 mcg tablet pantoprazole 40 mg tablet,delayed 40 mg PO DAILY tab 04/20/18 04/21/21 release Albuterol Sulfate [Albuterol 1.25 mg IH Q4HP PRN 06/18/18 04/21/21 0.042% 1.25mg/3mL neb] Tiotropium Br/Olodaterol
--- NOTE | 2021-06-13 15:52 | PC.NURSE ---
FAMILY NOTIFIED OF ADMISSION AND DX
--- NOTE | 2021-06-13 16:00 | PC.NURSE ---
REPORT CALLED TO FLOOR
--- NOTE | 2021-06-13 16:59 | PC.NURSE ---
Pt arrived to the floor at this time.
--- NOTE | 2021-06-13 17:50 | HMH.HP ---
*Admission Date: 06/13/21 *Chief complaint: Cough/shortness of air/congestion *History of present illness: 75-year-old white female with history of lung cancer, status post lobar resection and radiation therapy in the last 3 to 4 years. Has done well since that time. Also has oxygen dependent COPD. Had cough and congestion over the past week, treated by our office with azithromycin, but this is failed to improve her situation. Came to the emergency department, found to have increased oxygen requirement, wheezing, coughing, shortness of air, new infiltrate on chest x-ray. Admitted to hospital for failed outpatient therapy pneumonia. She notes that it has been little bit more difficult to swallow and she has had a couple of choking episodes over the past couple of weeks. [facility] History I have reviewed the patient's past medical history: Yes Medical History: Reports:: Anxiety, Cancer, Chronic Obstructive Pulmonary Disease (COPD), Coronary Artery Disease, Depression, Hiatal Hernia, Home Oxygen, Hyperlipidemia, Hypertension Denies:: Diabetes Mellitus Type 1, Diabetes Mellitus Type 2, Internal Pacemaker, MRSA, Seizures *Have you ever received a pneumonia vaccine?: No *Have you received a flu vaccine this season?: No Other Medical History: Reports: Arthritis Other Surgeries: Yes: Angioplasty, Coronary Stent, Hysterectomy-Total, Other. No: Pacemaker Amputation: No Fractures: Yes (right knee , left elbow) - *Social History Smoking Status: Former smoker Tobacco Type: cigarettes # Packs/Day (cigarettes): 2 #Yrs smoked (if former smoker): 50 Alcohol Intake: never Alcohol Intake Frequency:: holidays/special occasions only *Occupational Status:: disabled Housing: other Household Members: other *Travel in the last 8 weeks: None - Psychiatric History Pschychiatric History:: Reports:: Anxiety, Depression Family Hx:: No significant family history Review of Systems - Review of Systems Review of systems:: pertinent systems reviewed and negative unless documented below Meds Home Medications Medication Instructions Recorded Confirmed Type aspirin 81 mg tablet,delayed 81 mg PO HS 06/29/17 06/13/21 History release pregabalin 150 mg capsule 150 mg PO BID 06/29/17 06/13/21 History Montelukast Sodium [Montelukast 10 mg PO HS 03/07/18 06/13/21 History 10mg Tab] fluticasone furoate 100 1 puff INHALATION DAILY 04/20/18 04/21/21 History mcg/actuation blister powder for inhalation multivit with 1 tab PO DAILY 04/20/18 06/13/21 History xpnjdkux-tzil-TR-lutein 8 mg iron-400 mcg-300 mcg tablet pantoprazole 40 mg tablet,delayed 40 mg PO DAILY tab 04/20/18 06/13/21 History release Albuterol Sulfate [Albuterol 1.25 mg IH Q4HP PRN 06/18/18 06/13/21 History 0.042% 1.25mg/3mL neb] Tiotropium Br/Olodaterol HCl 2 puff INHALATION DAILY 06/18/18 06/13/21 History [Stiolto Respimat Inhal Carbon] escitalopram oxalate 10 mg tablet 10 mg PO DAILY 10/19/18 06/13/21 History metoprolol tartrate 25 mg tablet 25 mg PO BID 10/19/18 06/13/21 History Amlodipine Besylate 5 mg PO DAILY 04/21/21 06/13/21 History Allergies Allergy/AdvReac Type Severity Reaction Status Date / Time nitrofurantoin Allergy Unknown Verified 02/21/20 13:39 [From MACROBID] nylon [NYLON] Allergy Unknown I-RASH Verified 02/21/20 13:39 Penicillins Allergy Unknown I-RASH Verified 02/21/20 13:39 Sulfa (Sulfonamide Allergy Unknown I-RASH Verified 02/21/20 13:39 Antibiotics) morphine Allergy Hallucinati Verified 02/21/20 13:39 ng priscilla hose\ AdvReac Mild itching Uncoded 02/21/20 13:39 Exam Vital signs and Labs for Last 24 Hours: Temp Pulse Resp BP Pulse Ox 98.1 F 124 H 24 164/80 H 90 L 06/13/21 17:43 06/13/21 17:43 06/13/21 17:43 06/13/21 17:43 06/13/21 17:43 Laboratory Results - last 24 hr 06/13/21 13:00: WBC 10.7, RBC 5.37, Hgb 13.8, Hct 43.9, MCV 81.8, MCH 25.6 L, MCHC 31.3 L, RDW 14.0, Plt Count 255, MPV 11.5 H, Neut
[2021-06-13 17:58] LABS: Troponin I < 0.01 ng/ml (0.00-0.034)
--- NOTE | 2021-06-13 19:56 | PC.NURSE ---
Received order for prn zofran 4 mg IV q [address] Yun.
[2021-06-13 20:22] LABS: Troponin I 0.02 ng/ml (0.00-0.034)
[2021-06-14] VITALS (10 sets, daily range): BP systolic 112–141; BP diastolic 59–89; PULSE 79–100; RESP 17–22; TEMP 36.6–37; O2SAT 89–99; BMI 25.7
--- NOTE | 2021-06-14 07:34 | HMH.ACPN2 ---
Internal Medicine - PN: Subj *Date: 06/14/21 *Time: 18:43 Interval history: Patient doing somewhat better this morning. Remains afebrile. Tolerating 4 L nasal cannula oxygen (on 3 to 4 L at home). Tolerating fair p.o. intake. Given right lower lobe pneumonia, discussed having speech see her for evaluation. Patient reports history of hiatal hernia. Denies nausea, vomiting, diarrhea. States she is feeling somewhat better. Exam Vital signs and Labs for Last 24 Hours: Temp Pulse Resp BP Pulse Ox 98.4 F 86 19 113/60 99 06/14/21 04:24 06/14/21 06:47 06/14/21 04:24 06/14/21 04:24 06/14/21 06:47 Laboratory Results - last 24 hr 06/13/21 13:00: WBC 10.7, RBC 5.37, Hgb 13.8, Hct 43.9, MCV 81.8, MCH 25.6 L, MCHC 31.3 L, RDW 14.0, Plt Count 255, MPV 11.5 H, Neut % (Auto) 78.4, Lymph % (Auto) 15.9, [place] % (Auto) 3.8, Eos % (Auto) 1.3, Baso % (Auto) 0.6, Neut # (Auto) 8.4 H, Lymph # (Auto) 1.7, [place] # (Auto) 0.4, Eos # (Auto) 0.1, Baso # (Auto) 0.1 06/13/21 13:00: Sodium 129 L, Potassium 3.7, Chloride 81 L, Carbon Dioxide 41 H*, Anion Gap 10.7, BUN 5 L, Creatinine 0.40 L, Estimated Creat Clear 47, Estimated GFR 156, Est GFR ( Amer) 188, Glucose 92, Calcium 9.5, Total Bilirubin 0.4, AST 34, ALT 20, Alkaline Phosphatase 86, Troponin I < 0.01, Total Protein 7.5, Albumin 4.7, Globulin 2.8, Albumin/Globulin Ratio 1.7 06/13/21 13:00: Lactate 1.0 06/13/21 13:15: SARS-CoV-2 (PCR) Not detected, Influenza A Untype (PCR) Not detected, Influenza Type B (PCR) Not detected 06/13/21 13:23: Specimen Source Right radial, O2 % 8 lpm, ABG pH 7.36, ABG pCO2 58.8 H, ABG pO2 89.4, ABG HCO3 32.8 H, ABG Total CO2 34.6 H, ABG O2 Saturation 97, ABG Base Excess 7.4 H, Roberto Test Acceptable 06/13/21 17:23: Troponin I < 0.01 06/13/21 19:39: Troponin I 0.02 I & O for Last 24 hours: Intake & Output 06/11/21 06/12/21 06/13/21 06/14/21 23:59 23:59 23:59 23:59 Weight 60 kg 59.421 kg Narrative: - Constitutional mild distress, obese, chronically ill appearing - *Routine HEENT Exam Head: Present: normocephalic Eye: Present: EOMI, PERRL ENT: Present: mucous membranes dry - *Routine Neck Exam Present: supple. Absent: lymphadenopathy - *Routine Respiratory Exam Present: prolonged expiratory phase, rales, rhonchi Comments: Rhonchi in the right middle and lower lung field. - *Routine Cardiovascular Exam Present: RRR - *Routine Abdominal Exam Present: soft, normoactive bowel sounds. Absent: tenderness - *Routine Extremities Exam Absent: cyanosis, clubbing, edema - *Routine Skin Exam Present: warm. Absent: rash - *Routine Neurological Exam Present: alert, oriented X3 Assessment and Plan (1) CAP (community acquired pneumonia) Status: Acute Qualifiers: Laterality: unspecified laterality Qualified Code(s): J18.9 - Pneumonia, unspecified organism Category: Medical Code(s): J18.9 - Pneumonia, unspecified organism 75-year-old female on chronic oxygen therapy who presented from home./PSI score of 115. Scores for age, female, CHF history, respiratory rate greater than 30 on presentation, sodium less than 130 on presentation. Arguable pleural effusion in right hemithorax with blunting of costophrenic angles on Chest X-ray, that if added would add 10 more points for score of 125. Continues to require inpatient management at this time (2) COPD exacerbation Status: Acute Category: Medical Code(s): J44.1 - Chronic obstructive pulmonary disease with (acute) exacerbation (3) Obesity (BMI 30-39.9) Status: Acute Category: Medical Code(s): E66.9 - Obesity, unspecified (4) CAD (coronary artery disease) Status: Chronic Qualifiers: Category: Medical Code(s): I25.10 - Atherosclerotic heart disease of [place] coronary artery without angina pectoris (5) Diastolic CHF Status: Chronic Category: Medical Code(s): I50.30 - Unspecified diastolic (congestive) heart failure See echocardiog
[2021-06-14 07:54] LABS: Basophils % 0.3 % (0.1-2.0); Eosinophils % 0.1 % (0.1-12.0); Hematocrit 40.2 % (37.0-47.0); Hemoglobin 12.7 g/dL (12.2-16.2); Lymphocytes # 0.9 K/mm3 (0.7-4.5); Lymphocytes % 21.4 % (10-50); Mean Corpuscular HGB Conc 31.6 g/dL (31.8-35.4); Mean Corpuscular Hemoglobin 25.7 pg (27.0-31.2); Mean Corpuscular Volume 81.2 fl (81-99); Mean Platelet Volume 11.3 fl (7.4-10.4); Monocytes # 0.1 K/mm3 (0.1-1.0); Neutrophils # 3.2 K/mm3 (1.8-7.8); Neutrophils % 75.2 % (37.0-80.0); Platelet Count 226 K/mm3 (142-424); Red Blood Count 4.95 M/mm3 (4.20-5.40); Red Cell Distribution Width 13.9 % (11.5-17.5); White Blood Count 4.2 K/mm3 (4.8-10.8)
[2021-06-14 08:47] LABS: Alanine Aminotransferase 16 U/L (12-78); Albumin Level 4.1 g/dl (3.5-5.0); Albumin/Globulin Ratio 1.7 (1.1-1.8); Alkaline Phosphatase 67 U/L (38-126); Aspartate Amino Transferase 38 U/L (14-36); Bilirubin,Total 0.2 mg/dl (0.2-1.3); Blood Urea Nitrogen 10 mg/dl (7-17); Calcium 9.2 mg/dl (8.4-10.2); Chloride 80 mmol/L (98-107); Creatinine Clearance Estimated 46 mL/min (50-200); Estimated Glomerular Filt Rate 156 ml/min (>60); GFR (African American) 188 ML/MIN (>60); Globulin 2.4 g/dL (1.3-3.2); Glucose 114 mg/dl (74-100); Potassium 4.3 mmoL/L (3.5-5.1); Sodium 125 mmol/L (136-145); Total Protein,Serum 6.5 g/dl (6.3-8.2)
[2021-06-14 08:55] LABS: Anion Gap 8.3 mEq/L (5-15); Carbon Dioxide 41 mmol/L (22.0-30.0)
--- NOTE | 2021-06-14 09:34 | HMH.PHAINT ---
HOME MEDICATIONS RECONCILED FROM RX LIST FROM DR GILL'S OFFICE. DR FISHER APPROVED CHANGING LYRICA DOSE FROM 150 MG TO 200 MG (TO MATCH HOME DOSE) AND RESTART DIAZEPAM HOME MED PRN. NITRO NOT RESTARTED - PRN PATIENT IS RECEIVING ADVAIR AND DUONEBS FOR COPD/SOB.
--- NOTE | 2021-06-14 09:46 | HMH.SLDYSPHA ---
Speech & Language Evaluation Speech/Language Dysphagia Evaluation Start: 06/14/21 09:40 Freq: ONCE Status: Active Protocol: Document 06/14/21 09:40 SHERIN (Rec: 06/14/21 09:46 SHERIN [id number]) Dysphagia Assess/Goals/Plan Assessment Date of Evaluation: 06/14/21 Evaluation Type Initial Certification Assessment/Problems Dysphagia Does Patient Qualify for Service No Qualify/Failure Comment Patient exhibited no overt signs and symptoms of dysphagia Recommendations PHYSICIAN CERTIFICATION: The specified therapy services are required, authorized, and reviewed every 30 days. Diet Recommendations Normal Liquid Type Recommendations Normal/Thin Plan Pt/Guardian verbally ack understanding Yes of dx/prognosis/goals G -code Required No Speech & Language HPI Language Primary Language German General Information General Current Food Consistancy NPO Dentition Good Dentition Oxygen Status Nasal Cannula Facial Symmetry Symmetrical Patient Orientation Person,Place,Time,Situation Ability to Follow Directions Excellent Communication Ability No Impairment Dysphagia:Food Presentation Evaluation Food Type Regular,Liquid,Pudding Dysphagia Evaluation Summary Ms. Page was given the following consistencies: thins via straw and open cup, pudding, and regular. No overt signs and symptoms of dysphagia were noted during evaluation. At this time, it is recommended she be placed on a regular diet with thin liquids. No speech therapy is required at this time. Stroke Dysphagia Assessment PHYSICIAN CERTIFICATION: I certify the specified therapy services for Rose Page are required, authorized, and reviewed every 30 days.
--- NOTE | 2021-06-14 14:04 | DIET.NUTRFU ---
Provider was notified of malnutrition secondary to 60# weight loss over past year secondary to swallowing difficulties related to hitial hernia. Only able to consumed clear-full liquids at home. She has tried supplements in past will restart during stay to help provide some calories and protein. Will continue to follow-up with plan, provider talked about a EGD as outpatient to address the severity of hital hernia.
--- NOTE | 2021-06-14 18:35 | PC.NURSE ---
PT IS AOX4, ABLE TO MAKE NEEDS KNOWN TO STAFF. HAS TOLERATED 4LNC WELL T/O SHIFT. DID ASK FOR PRN ATIVAN FOR ANXIETY WITH GOOD EFFECTIVENESS NOTED. SHE TOLERATED PO INTAKE WELL. SHE HAS DENIED N/V/D. NO NEEDS VOICED.
--- NOTE | 2021-06-14 19:48 | PC.NURSE ---
pt appeared to be having an anxiety attack. was tachycardic and hypertensive. contacted md talent acquisition lead dwayne who stated to give pt incentive spirometer. no other new orders
[2021-06-15] VITALS (10 sets, daily range): BP systolic 126–147; BP diastolic 62–84; PULSE 77–109; RESP 16–26; TEMP 36.4–36.9; O2SAT 90–98; BMI 25.5
[2021-06-15 05:41] LABS: Basophils % 0.1 % (0.1-2.0); Hematocrit 40.3 % (37.0-47.0); Hemoglobin 12.6 g/dL (12.2-16.2); Lymphocytes % 10.9 % (10-50); Mean Corpuscular HGB Conc 31.3 g/dL (31.8-35.4); Mean Corpuscular Hemoglobin 25.4 pg (27.0-31.2); Mean Corpuscular Volume 81.2 fl (81-99); Mean Platelet Volume 11.4 fl (7.4-10.4); Monocytes # 0.3 K/mm3 (0.1-1.0); Monocytes % 3.2 % (1.7-9.3); Neutrophils # 7.7 K/mm3 (1.8-7.8); Neutrophils % 85.7 % (37.0-80.0); Platelet Count 240 K/mm3 (142-424); Red Blood Count 4.97 M/mm3 (4.20-5.40); Red Cell Distribution Width 13.9 % (11.5-17.5)
[2021-06-15 05:46] LABS: MANUAL DIFFERENTIAL MANUAL DIFFERENTIAL (MANUAL DIFF)
[2021-06-15 05:54] LABS: Blood Urea Nitrogen 13 mg/dl (7-17); Chloride 82 mmol/L (98-107); Creatinine Clearance Estimated 45 mL/min (50-200); Estimated Glomerular Filt Rate 156 ml/min (>60); GFR (African American) 188 ML/MIN (>60); Glucose 109 mg/dl (74-100); Potassium 3.9 mmoL/L (3.5-5.1); Sodium 126 mmol/L (136-145)
[2021-06-15 06:01] LABS: Anion Gap 8.9 mEq/L (5-15); Carbon Dioxide 39 mmol/L (22.0-30.0)
[2021-06-15 06:37] LABS: Hypochromasia 1+; Lymphocytes % 6 % (10-50); Microcytosis 1+; Neutrophils % 88 % (42-76); Platelet Estimate Normal; Total Cells Counted 100
--- NOTE | 2021-06-15 07:10 | HMH.DCSUM ---
General - General Admission date:: 06/13/21 Discharge date: 06/15/21 HPI HPI: 75-year-old white female with history of lung cancer, status post lobar resection and radiation therapy in the last 3 to 4 years. Has done well since that time. Also has oxygen dependent COPD. Had cough and congestion over the past week, treated by our office with azithromycin, but this is failed to improve her situation. Came to the emergency department, found to have increased oxygen requirement, wheezing, coughing, shortness of air, new infiltrate on chest x-ray. Admitted to hospital for failed outpatient therapy pneumonia. She notes that it has been little bit more difficult to swallow and she has had a couple of choking episodes over the past couple of weeks. Hospital Course Hospital Course: 75-year-old female on chronic oxygen therapy with COPD, Hx of lung cancer, Diastolic CHF, CAD who presented from home. Port/PSI score of 115 for pneumonia. Scores for age, female, CHF history, respiratory rate greater than 30 on presentation, sodium less than 130 on presentation. Arguable pleural effusion in right hemithorax with blunting of costophrenic angles on Chest X-ray, that if added would add 10 more points for score of 125. Admitted for failure of outpatient therapy. Has responded well to IV abx, steroids, and breathing treatments. Stable baseline O2 requirement of 4L. Transitioned to PO abx to complete therapy of 10 days. Personal history of other malignant neoplasm of bronchus and lung: Adenocarcinoma, Stage I of right lung, s/p resection and radiation Diastolic CHF, grade 1 on Echo from January 2021 Medically stable for DC home. Has home O2. Meds sent. Counseled on new meds and side effects. close follow-up in office in the next week to assess progress/improvement. Objective Vital signs: Temp Pulse Resp BP Pulse Ox 98.5 F 106 H 19 145/84 H 90 L 06/15/21 04:00 06/15/21 04:00 06/15/21 04:00 06/15/21 04:00 06/15/21 04:00 Narrative: - Constitutional minimal distress, obese, chronically ill appearing - *Routine HEENT Exam Head: Present: normocephalic Eye: Present: EOMI, PERRL ENT: Present: mucous membranes dry - *Routine Neck Exam Present: supple. Absent: lymphadenopathy - *Routine Respiratory Exam Present: prolonged expiratory phase, rales, rhonchi; intervally improved Rhonchi in the right middle and lower lung field. - *Routine Cardiovascular Exam Present: RRR - *Routine Abdominal Exam Present: soft, normoactive bowel sounds. Absent: tenderness - *Routine Extremities Exam Absent: cyanosis, clubbing, edema - *Routine Skin Exam Present: warm. Absent: rash - *Routine Neurological Exam Present: alert, oriented X3 Results Labs on day of discharge: Labs from last 24 hours 06/15/21 06/15/21 06/14/21 05:15 05:15 07:40 WBC 9.0 D RBC 4.97 Hgb 12.6 Hct 40.3 MCV 81.2 MCH 25.4 L MCHC 31.3 L RDW 13.9 Plt Count 240 MPV 11.4 H Neut % (Auto) 85.7 H Lymph % (Auto) 10.9 [place] % (Auto) 3.2 Eos % (Auto) 0.0 L Baso % (Auto) 0.1 Neut # (Auto) 7.7 Lymph # (Auto) 1.0 [place] # (Auto) 0.3 Eos # (Auto) 0.0 Baso # (Auto) 0.0 Total Counted 100 Neutrophils % (Manual) 88 H Band Neutrophils % 6.0 Lymphocytes % (Manual) 6 L Platelet Estimate Normal Hypochromasia 1+ Microcytosis 1+ Sodium 126 L 125 L Potassium 3.9 4.3 Chloride 82 L 80 L Carbon Dioxide 39 H 41 H* Anion Gap 8.9 8.3 BUN 13 D 10 D Creatinine 0.40 L 0.40 L Estimated Creat Clear 45 46 Estimated GFR 156 156 Est GFR ( Amer) 188 188 Glucose 109 H 114 H D Calcium 9.0 9.2 Total Bilirubin 0.2 AST 38 H ALT 16 Alkaline Phosphatase 67 Total Protein 6.5 Albumin 4.1 D Globulin 2.4 Albumin/Globulin Ratio 1.7 06/14/21 07:40 WBC 4.2 L D RBC 4.95 Hgb 12.7 Hct 40.2 MCV
--- NOTE | 2021-06-15 07:59 | PC.NURSE ---
Patient rested fair through night. Vitals stable on 4-5L per NC. patient does become anxious with exertion as she becomes short of breath. Reassurance given. Able to make needs known.
--- NOTE | 2021-06-15 08:54 | HMH.ACPN2 ---
Internal Medicine - PN: Subj *Date: 06/15/21 *Time: 08:54 Interval history: This morning feels more short of breath this morning. Went up to 5 L overnight. Has been having some tachycardia with coadministration of nebulizer and steroid. Remains afebrile. Cough minimally productive. Still having poor air movement. Anxious at times when she cannot breathe. Daughter at bedside, updated of plan. Denies any confusion, chest pain, nausea or vomiting. Exam Vital signs and Labs for Last 24 Hours: Temp Pulse Resp BP Pulse Ox 98.0 F 88 26 H 132/62 93 L 06/15/21 08:00 06/15/21 08:00 06/15/21 08:00 06/15/21 08:00 06/15/21 08:00 Laboratory Results - last 24 hr 06/14/21 07:40: Sodium 125 L, Potassium 4.3, Chloride 80 L, Carbon Dioxide 41 H*, Anion Gap 8.3, BUN 10 D, Creatinine 0.40 L, Estimated Creat Clear 46, Estimated GFR 156, Est GFR ( Amer) 188, Glucose 114 H D, Calcium 9.2, Total Bilirubin 0.2, AST 38 H, ALT 16, Alkaline Phosphatase 67, Total Protein 6.5, Albumin 4.1 D, Globulin 2.4, Albumin/Globulin Ratio 1.7 06/15/21 05:15: WBC 9.0 D, RBC 4.97, Hgb 12.6, Hct 40.3, MCV 81.2, MCH 25.4 L, MCHC 31.3 L, RDW 13.9, Plt Count 240, MPV 11.4 H, Neut % (Auto) 85.7 H, Lymph % (Auto) 10.9, [place] % (Auto) 3.2, Eos % (Auto) 0.0 L, Baso % (Auto) 0.1, Neut # (Auto) 7.7, Lymph # (Auto) 1.0, [place] # (Auto) 0.3, Eos # (Auto) 0.0, Baso # (Auto) 0.0, Total Counted 100, Neutrophils % (Manual) 88 H, Band Neutrophils % 6.0, Lymphocytes % (Manual) 6 L, Platelet Estimate Normal, Hypochromasia 1+, Microcytosis 1+ 06/15/21 05:15: Sodium 126 L, Potassium 3.9, Chloride 82 L, Carbon Dioxide 39 H, Anion Gap 8.9, BUN 13 D, Creatinine 0.40 L, Estimated Creat Clear 45, Estimated GFR 156, Est GFR ( Amer) 188, Glucose 109 H, Calcium 9.0 I & O for Last 24 hours: Intake & Output 06/12/21 06/13/21 06/14/21 06/15/21 23:59 23:59 23:59 23:59 Intake Total 720 / 720 Balance 720 / 720 Weight 60 kg 59.42 kg 59.024 kg Narrative: - Constitutional mild distress, obese, chronically ill appearing, 5L NC - *Routine HEENT Exam Head: Present: normocephalic Eye: Present: EOMI, PERRL ENT: Present: mucous membranes dry - *Routine Neck Exam Present: supple. Absent: lymphadenopathy - *Routine Respiratory Exam Present: tachypnea, prolonged expiratory phase, rales, rhonchi in RLL. - *Routine Cardiovascular Exam Present: RRR - *Routine Abdominal Exam Present: soft, normoactive bowel sounds. Absent: tenderness - *Routine Extremities Exam Absent: cyanosis, clubbing, edema - *Routine Skin Exam Present: warm. Absent: rash - *Routine Neurological Exam Present: alert, oriented X3 Assessment and Plan (1) CAP (community acquired pneumonia) Status: Acute Qualifiers: Laterality: unspecified laterality Qualified Code(s): J18.9 - Pneumonia, unspecified organism Category: Medical Code(s): J18.9 - Pneumonia, unspecified organism (2) COPD exacerbation Status: Acute Category: Medical Code(s): J44.1 - Chronic obstructive pulmonary disease with (acute) exacerbation (3) CAD (coronary artery disease) Status: Chronic Qualifiers: Category: Medical Code(s): I25.10 - Atherosclerotic heart disease of [place] coronary artery without angina pectoris (4) Diastolic CHF Status: Chronic Category: Medical Code(s): I50.30 - Unspecified diastolic (congestive) heart failure (5) History of lung cancer Status: Chronic Category: Medical Code(s): Z85.118 - Personal history of other malignant neoplasm of bronchus and lung (6) HTN (hypertension) Status: Chronic Qualifiers: Hypertension type: essential hypertension Category: Medical Code(s): I10 - Essential (primary) hypertension (7) Severe protein-calorie malnutrition Status: Chronic Category: Medical Code(s): E43 - Unspecified severe protein-calorie malnutrition - Assessment and plan all Dx Assessment and Plan for all problems::
--- NOTE | 2021-06-15 12:00 | PC.NURSE ---
pt produced sample and it was sent to lab at 1155
[2021-06-16] VITALS (15 sets, daily range): BP systolic 137–155; BP diastolic 66–89; PULSE 64–92; RESP 16–20; TEMP 36.4–36.8; O2SAT 91–99; BMI 25.5
--- NOTE | 2021-06-16 10:34 | HMH.ACPN2 ---
Internal Medicine - PN: Subj *Date: 06/16/21 *Time: 10:50 Interval history: This morning he feels marginally better today than yesterday. Stable oxygen requirement. Afebrile. Able to have some productive coughing yesterday which made her feel like she can breathe little bit better. Tolerating current regimen of inhalers and nebulizers. Tolerating breakfast this morning Exam Vital signs and Labs for Last 24 Hours: Temp Pulse Resp BP Pulse Ox 98.2 F 92 H 18 155/68 H 97 06/16/21 08:00 06/16/21 08:00 06/16/21 08:00 06/16/21 08:00 06/16/21 08:00 I & O for Last 24 hours: Intake & Output 06/13/21 06/14/21 06/15/21 06/16/21 23:59 23:59 23:59 23:59 Intake Total 720 / 720 540 / 540 540 / 540 Balance 720 / 720 540 / 540 540 / 540 Weight 60 kg 59.42 kg 59.024 kg 59 kg Microbiology Reports for the Last 24 Hours: Microbiology 06/15/21 11:59 Sputum - Expectorated Sputum Gram Stain - Final 06/13/21 13:13 Blood Blood Culture - Preliminary NO GROWTH AFTER 48 HOURS 06/13/21 13:13 Blood Blood Culture - Preliminary NO GROWTH AFTER 48 HOURS Narrative: - Constitutional mild distress, obese, chronically ill appearing, 5L NC - *Routine HEENT Exam Head: Present: normocephalic Eye: Present: EOMI, PERRL ENT: Present: mucous membranes dry - *Routine Neck Exam Present: supple. Absent: lymphadenopathy - *Routine Respiratory Exam Present: tachypnea, prolonged expiratory phase, minimal wheeze, poor air movement. - *Routine Cardiovascular Exam Present: RRR - *Routine Abdominal Exam Present: soft, normoactive bowel sounds. Absent: tenderness - *Routine Extremities Exam Absent: cyanosis, clubbing, edema - *Routine Skin Exam Present: warm. Absent: rash - *Routine Neurological Exam Present: alert, oriented X3 Assessment and Plan (1) CAP (community acquired pneumonia) Status: Acute Qualifiers: Laterality: unspecified laterality Qualified Code(s): J18.9 - Pneumonia, unspecified organism Category: Medical Code(s): J18.9 - Pneumonia, unspecified organism (2) COPD exacerbation Status: Acute Category: Medical Code(s): J44.1 - Chronic obstructive pulmonary disease with (acute) exacerbation (3) CAD (coronary artery disease) Status: Chronic Qualifiers: Category: Medical Code(s): I25.10 - Atherosclerotic heart disease of [place] coronary artery without angina pectoris (4) Diastolic CHF Status: Chronic Category: Medical Code(s): I50.30 - Unspecified diastolic (congestive) heart failure (5) History of lung cancer Status: Chronic Category: Medical Code(s): Z85.118 - Personal history of other malignant neoplasm of bronchus and lung (6) HTN (hypertension) Status: Chronic Qualifiers: Hypertension type: essential hypertension Category: Medical Code(s): I10 - Essential (primary) hypertension (7) Severe protein-calorie malnutrition Status: Chronic Category: Medical Code(s): E43 - Unspecified severe protein-calorie malnutrition - Assessment and plan all Dx Assessment and Plan for all problems:: 75-year-old female on chronic oxygen therapy with COPD, Hx of lung cancer, Diastolic CHF, CAD who presented from home. Port/PSI score of 115 for pneumonia. Scores for age, female, CHF history, respiratory rate greater than 30 on presentation, sodium less than 130 on presentation. Arguable pleural effusion in right hemithorax with blunting of costophrenic angles on Chest X-ray, that if added would add 10 more points for score of 125. Admitted for failure of outpatient therapy. Responding to IV antibiotics, steroids, breathing treatments, however having increased anxiety and tachycardia with steroids and albuterol. -Tolerating Xopenex and ipratropium, continue. Will need orders for this when she goes home in the next day or 2 - Continue oxygen for goal saturation greater 90%.
--- NOTE | 2021-06-16 17:57 | PC.NURSE ---
Have weaned pt to 4 L NC at this time. Pt appears to be improving. Has sit up in bed and on side of bed this shift. CB in reach.
[2021-06-17] VITALS (9 sets, daily range): BP systolic 144–155; BP diastolic 71–79; PULSE 67–93; RESP 19–24; TEMP 36.4–36.6; O2SAT 93–98; BMI 25.7
--- NOTE | 2021-06-17 06:18 | PC.NURSE ---
No acute episodes this shift. Pt is on tele and continuous pulse ox. Pt has continued to tolerate 4 L NC this shift, pt does get SOA with minimal exertion, but is now able to get to BSC with 1 assist. Pt received a bath during my shift. Pt does state that she is feeling better and has rested well this shift. Call light in reach.
--- NOTE | 2021-06-17 07:30 | FL_ITS ---
FINAL REPORT CLINICAL HISTORY: .dysphagia fluoro time-0.52 FINDINGS: A limited esophagram was performed. The patient declined to complete the exam. 0.52 minutes of fluoroscopy time was utilized. On the limited images of the esophagus, there is no evidence of obstruction or definite stricture. IMPRESSION: Limited exam with no gross abnormality identified. Authenticated by Abdias Love III, MD on 06/17/2021 03:22:47 PM [facility]
[2021-06-17 08:45] LABS: Basophils # 0.1 K/mm3 (0-0.2); Basophils % 0.7 % (0.1-2.0); Eosinophils % 0.2 % (0.1-12.0); Hematocrit 45.2 % (37.0-47.0); Lymphocytes # 1.2 K/mm3 (0.7-4.5); Lymphocytes % 12.8 % (10-50); Mean Corpuscular HGB Conc 30.9 g/dL (31.8-35.4); Mean Corpuscular Hemoglobin 25.3 pg (27.0-31.2); Mean Corpuscular Volume 81.8 fl (81-99); Mean Platelet Volume 11.2 fl (7.4-10.4); Monocytes # 0.5 K/mm3 (0.1-1.0); Monocytes % 4.7 % (1.7-9.3); Neutrophils # 7.9 K/mm3 (1.8-7.8); Neutrophils % 81.6 % (37.0-80.0); Platelet Count 290 K/mm3 (142-424); Red Blood Count 5.53 M/mm3 (4.20-5.40); Red Cell Distribution Width 14.1 % (11.5-17.5); White Blood Count 9.7 K/mm3 (4.8-10.8)
[2021-06-17 08:59] LABS: Blood Urea Nitrogen 12 mg/dl (7-17); Calcium 9.2 mg/dl (8.4-10.2); Chloride 82 mmol/L (98-107); Creatinine Clearance Estimated 46 mL/min (50-200); Estimated Glomerular Filt Rate 156 ml/min (>60); GFR (African American) 188 ML/MIN (>60); Glucose 133 mg/dl (74-100); Potassium 3.4 mmoL/L (3.5-5.1); Sodium 128 mmol/L (136-145)
--- NOTE | 2021-06-17 08:59 | HMH.ACPN2 ---
Internal Medicine - PN: Subj *Date: 06/17/21 *Time: 08:59 Exam Vital signs and Labs for Last 24 Hours: Temp Pulse Resp BP Pulse Ox 97.6 F 88 20 152/78 H 98 06/17/21 04:00 06/17/21 06:15 06/17/21 04:00 06/17/21 04:00 06/17/21 06:15 Laboratory Results - last 24 hr 06/17/21 08:21: WBC 9.7, RBC 5.53 H, Hgb 14.0, Hct 45.2, MCV 81.8, MCH 25.3 L, MCHC 30.9 L, RDW 14.1, Plt Count 290, MPV 11.2 H, Neut % (Auto) 81.6 H, Lymph % (Auto) 12.8, [place] % (Auto) 4.7, Eos % (Auto) 0.2, Baso % (Auto) 0.7, Neut # (Auto) 7.9 H, Lymph # (Auto) 1.2, [place] # (Auto) 0.5, Eos # (Auto) 0.0, Baso # (Auto) 0.1 I & O for Last 24 hours: Intake & Output 06/14/21 06/15/21 06/16/21 06/17/21 23:59 23:59 23:59 23:59 Intake Total 720 / 720 540 / 540 1140 / 1540 1000 / 1000 Output Total 800 / 800 Balance 720 / 720 540 / 540 1140 / 740 200 / 200 Weight 59.42 kg 59.024 kg 59 kg 59.477 kg Microbiology Reports for the Last 24 Hours: Microbiology 06/15/21 11:59 Sputum - Expectorated Sputum Gram Stain - Final 06/15/21 11:59 Sputum - Expectorated Sputum Sputum Culture - Preliminary Assessment and Plan (1) CAP (community acquired pneumonia) Status: Acute Qualifiers: Laterality: unspecified laterality Qualified Code(s): J18.9 - Pneumonia, unspecified organism Category: Medical Code(s): J18.9 - Pneumonia, unspecified organism (2) COPD exacerbation Status: Acute Category: Medical Code(s): J44.1 - Chronic obstructive pulmonary disease with (acute) exacerbation (3) CAD (coronary artery disease) Status: Chronic Qualifiers: Category: Medical Code(s): I25.10 - Atherosclerotic heart disease of [place] coronary artery without angina pectoris (4) Diastolic CHF Status: Chronic Category: Medical Code(s): I50.30 - Unspecified diastolic (congestive) heart failure (5) History of lung cancer Status: Chronic Category: Medical Code(s): Z85.118 - Personal history of other malignant neoplasm of bronchus and lung (6) HTN (hypertension) Status: Chronic Qualifiers: Hypertension type: essential hypertension Category: Medical Code(s): I10 - Essential (primary) hypertension (7) Severe protein-calorie malnutrition Status: Chronic Category: Medical Code(s): E43 - Unspecified severe protein-calorie malnutrition The patient's infection will respond to the chosen ABx?: Yes Is the patient receiving the right drug, dose, and route?: Yes Could a more targeted ABx be ordered?: No (SPUTUM PENDING)
[2021-06-17 09:07] LABS: Anion Gap 8.4 mEq/L (5-15); Carbon Dioxide 41 mmol/L (22.0-30.0)
--- NOTE | 2021-06-17 09:13 | HMH.ACPN2 ---
Internal Medicine - PN: Subj *Date: 06/17/21 *Time: 09:13 Interval history: Patient is still very weak but feels like her breathing is better, wishes to go home today. Was unable to complete the barium swallow because of anxiety and breathlessness. Exam Vital signs and Labs for Last 24 Hours: Temp Pulse Resp BP Pulse Ox 97.6 F 88 20 152/78 H 98 06/17/21 04:00 06/17/21 06:15 06/17/21 04:00 06/17/21 04:00 06/17/21 06:15 Laboratory Results - last 24 hr 06/17/21 08:21: WBC 9.7, RBC 5.53 H, Hgb 14.0, Hct 45.2, MCV 81.8, MCH 25.3 L, MCHC 30.9 L, RDW 14.1, Plt Count 290, MPV 11.2 H, Neut % (Auto) 81.6 H, Lymph % (Auto) 12.8, [place] % (Auto) 4.7, Eos % (Auto) 0.2, Baso % (Auto) 0.7, Neut # (Auto) 7.9 H, Lymph # (Auto) 1.2, [place] # (Auto) 0.5, Eos # (Auto) 0.0, Baso # (Auto) 0.1 06/17/21 08:21: Sodium 128 L, Potassium 3.4 L, Chloride 82 L, Carbon Dioxide 41 H*, Anion Gap 8.4, BUN 12, Creatinine 0.40 L, Estimated Creat Clear 46, Estimated GFR 156, Est GFR ( Amer) 188, Glucose 133 H, Calcium 9.2 I & O for Last 24 hours: Intake & Output 06/14/21 06/15/21 06/16/21 06/17/21 11:59 11:59 11:59 11:59 Intake Total 240 / 240 540 / 540 1020 / 1020 1600 / 1600 Output Total 800 / 800 Balance 240 / 240 540 / 540 1020 / 1020 800 / 800 Weight 130 lb 15.979 oz 130 lb 2 oz 130 lb 1.164 oz 131 lb 2 oz Microbiology Reports for the Last 24 Hours: Microbiology 06/15/21 11:59 Sputum - Expectorated Sputum Gram Stain - Final 06/15/21 11:59 Sputum - Expectorated Sputum Sputum Culture - Preliminary Narrative: Patient is up on the side of the bed, alert, oriented, tremulous, appears anxious. Lungs have poor air movement with scattered rhonchi, heart rate regular, no clubbing or edema. Assessment and Plan (1) CAP (community acquired pneumonia) Status: Acute Qualifiers: Laterality: unspecified laterality Qualified Code(s): J18.9 - Pneumonia, unspecified organism Category: Medical Code(s): J18.9 - Pneumonia, unspecified organism (2) COPD exacerbation Status: Acute Category: Medical Code(s): J44.1 - Chronic obstructive pulmonary disease with (acute) exacerbation (3) CAD (coronary artery disease) Status: Chronic Qualifiers: Category: Medical Code(s): I25.10 - Atherosclerotic heart disease of [place] coronary artery without angina pectoris (4) Diastolic CHF Status: Chronic Category: Medical Code(s): I50.30 - Unspecified diastolic (congestive) heart failure (5) History of lung cancer Status: Chronic Category: Medical Code(s): Z85.118 - Personal history of other malignant neoplasm of bronchus and lung (6) HTN (hypertension) Status: Chronic Qualifiers: Hypertension type: essential hypertension Category: Medical Code(s): I10 - Essential (primary) hypertension (7) Severe protein-calorie malnutrition Status: Chronic Category: Medical Code(s): E43 - Unspecified severe protein-calorie malnutrition
--- NOTE | 2021-06-17 10:15 | HMH.OTEV ---
OT Inpatient Evaluation Rehab OT IP Evaluation Start: 06/17/21 07:30 Freq: ONCE Status: Complete Protocol: Document 06/17/21 09:34 MARLENEJAYE (Rec: 06/17/21 10:02 ROSIO [id number]) Rehab OT IP Assessment Subjective History 75-year-old white female with history of lung cancer, status post lobar resection and radiation therapy in the last 3 to 4 years. Has done well since that time. Also has oxygen dependent COPD . Had cough and congestion over the past week, treated by our office with azithromycin, but this is failed to improve her situation. Came to the emergency department, found to have increased oxygen requirement, wheezing, coughing, shortness of air, new infiltrate on chest x-ray. Admitted to hospital for failed outpatient therapy pneumonia. She notes that it has been little bit more difficult to swallow and she has had a couple of choking episodes over the past couple of weeks. [facility] History I have reviewed the patient's past medical history: Yes Medical History: Reports:: Anxiety, Cancer, Chronic Obstructive Pulmonary Disease (COPD), Coronary Artery Disease, Depression, Hiatal Hernia, Home Oxygen, Hyperlipidemia, Hypertension. Patient lives at home with in 1 story home with 1 -2 KATELIN. Patient used RW and w/ c at home and outside of home . Subjective I just can't do much right now. Instructed Patient on proper hand/foot placement to complete supine->sit @ EOB -> stand with usage of RW.
--- NOTE | 2021-06-17 10:33 | SW/DCPLANNER ---
Addendum entered by Danielle Stallings 06/19/21 07:56: PATIENT HAD A BRONCHOSCOPY AND IS TO FOLLOW UP WITH ONCOLOGY.. I DID SET UP HOME HEALTH FOR HER WITH [facility] PER DAUGHTER REQUEST.. WILL FOLLOW UP WITH [facility] AND LET THEM KNOW SHE IS READY FOR A DISCHARGE... Addendum entered by Danielle Stallings 06/17/21 13:08: HAD A CONVERSATION WITH PATIENT AND DAUGHTER, WALI AT BEDSIDE AND THEY WANT PATIENT TO RETURN BACK HOME.. DAUGHTER STATED PATIENTS GRANDDAUGHTER AND ARE THERE WITH THE BOTH OF THEM AND SHE WISHES TO HAVE HOME HEALTH AND CHOSE [facility] AT HOME.. I HAVE SET THIS UP ALONG WITH A BEDSIDE [facility] PER DAUGHTERS REQUEST..PATIENT MAY DISCHARGE TMRW.. Original Note: ROUNDED WITH DR GILL THIS MORNING, HE ORDERED A PT/OT CONSULT AND OT'S EVAL INDICATED PATIENT NEEDS SKILLED CARE.. DOES NOT THINK PATIENT CAN CARE FOR HERSELF AT HOME PROPERLY AND SAFELY... WILL SPEAK WITH PATIENT ABOUT GOING SOMEWHERE FOR SHORT TERM AND IF SHE ADAMANTLY REFUSES WILL SET HOME HEALTH SERVICES UP WHEN READY TO DISCHARGE HOME..
--- NOTE | 2021-06-17 11:35 | HMH.PTEV ---
Physical Therapy Evaluation Rehab PT IP Evaluation Start: 06/17/21 07:30 Freq: ONCE Status: Active Protocol: Document 06/17/21 11:28 ALEXANDRA (Rec: 06/17/21 11:35 ALEXANDRA [id number]) Subjective/History History History Patient is a 75 year old female admitted to [facility] 06/13/21 secondary to increasing SOB. Patient reports that she lives at home with her daughter. Previously dependent on a wheelchair for household mobility, but adds that she does walk short distances with a walker. Patient has hx of lung cancer and oxygen dependent COPD. Subjective Subjective I'm just so short of breath. I can't do much. Rehab PT IP Eval Objective Appearance Patient Behavior Appropriate,Cooperative Patient Orientation Person,Place,Birthday Difficulty following instructions none Speech Pattern Clear,Appropriate Ambulation Patient Able to Ambulate No Balance Ability to Arise Able, uses arms to help Sitting Balance Steady, safe Standing Balance Narrow stance w/o support Dynamic Sitting Balance Ability Good Dynamic Standing Balance Ability Fair Transfers Bed Transfer Ability Supervision/Stand by Sit to Stand Bed Transfer Ability Minimal x 1 (25% assist) ROM All Extremities PT ROM Status WFL MMT All Extremities PT MMT WFL Rehab PT IP prob,goals,plan Problems Date of Evaluation: 06/17/21 PT IP Problems Transfers,Gait,Balance,Self care,Safety Rehab Potential Rehab Potential Good Equipment Needs Assistive Devices None / NA Plan PT Intervention Plan Transfers,Gait,Balance,Self care,Safety,Therapeutic Exercise PT Plan Frequency BID Duration LOS Discharge Goals Bed Transfer Ability Independent Sit to Stand Chair Transfer Ability Contact Guard/Hand Hold Ambulation Assistive Device Rolling Walker Ambulation Distance (feet) 20 Discharge Plan PT Discharge Plan Patient to be seen by PT BID LOS until deemed medically stable to discharge to home with caregiver. G -code Required No Eval Complexity Eval Charge Codes 97
--- NOTE | 2021-06-17 12:11 | PC.NURSE ---
PT WILL NEED HOSPITAL BED AT HOME DUE TO DIFFICULTY WITH REPOSITIONING FROM COPD AND LUNG CANCER WHICH CAUSES HER TO BE SOA.
--- NOTE | 2021-06-17 13:07 | CT_ITS ---
FINAL REPORT TECHNIQUE: Then section axial CT images of the chest were obtained with contrast. Three-D reformatted images were also obtained.This study was performed with techniques to keep radiation doses as low as reasonably achievable (ALARA). Individualized dose reduction techniques using automated exposure control or adjustment of mA and/or kV according to the patient''s size were employed. CLINICAL HISTORY: . hypoxia, soa, on 02 FINDINGS: There is no evidence of pulmonary embolism. There is no evidence of thoracic aortic aneurysm or dissection. There is mediastinal and right hilar adenopathy worrisome for neoplastic involvement. A posterior right hilar lymph node measures 1.4 cm. There is a right middle lobe atelectasis. There are moderate to severe changes of emphysema. There are several small left upper lobe nodules measuring up to 9 mm. There are small nodular opacities in the right lower lobe measuring up to 10 mm. A small right pleural effusion is present. There is mucous plugging of the bronchus intermedius and right lower lobe. Limited images of the upper abdomen demonstrate prior cholecystectomy. IMPRESSION: 1. No evidence of pulmonary embolism. 2. Mediastinal and right hilar adenopathy worrisome for neoplastic involvement or could be possibly reactive. 3. Bilateral nonspecific nodular densities. 4. Recommend PET-CT. Reviewed, Interpreted and Dictated by Abdias Love III, MD Transcribed by Reji Adler Authenticated by Abdias Love III, MD on 06/17/2021 03:03:32 PM [facility]
--- NOTE | 2021-06-17 13:27 | HMH.PULMCON ---
*Admission Date: 06/13/21 *Reason for consult:: Acute on chronic hypoxic respiratory failure, community-acquired pneumonia *History of present illness: Ms. Page is a 75-year-old female previous smoker more than [id number] smoking history, currently smoking e-cigarettes, COPD on inhalers, lung cancer status post radiation and resection in September-2017 at [facility] last seen in pulmonary clinic in December 2019, recently treated for COPD exacerbation with azithromycin with worsening respiratory symptoms admitted to the hospital and antibiotics were escalated and pulmonary was called for further management. [facility] History Medical History: Reports:: Anxiety, Cancer, Chronic Obstructive Pulmonary Disease (COPD), Coronary Artery Disease, Depression, Hiatal Hernia, Home Oxygen, Hyperlipidemia, Hypertension Denies:: Diabetes Mellitus Type 1, Diabetes Mellitus Type 2, Internal Pacemaker, MRSA, Seizures *Have you ever received a pneumonia vaccine?: Yes *Have you received a flu vaccine this season?: Yes Other Medical History: Reports: Arthritis Other Surgeries: Yes: Angioplasty, Coronary Stent, Hysterectomy-Total, Other. No: Pacemaker Amputation: No Fractures: Yes (right knee , left elbow) - *Social History Smoking Status: Current every day smoker Tobacco Type: cigarettes # Packs/Day (cigarettes): 1 #Yrs smoked (if former smoker): 50 Alcohol Intake: never Alcohol Intake Frequency:: holidays/special occasions only *Occupational Status:: other Housing: other Household Members: other *Travel in the last 8 weeks: None - Psychiatric History Pschychiatric History:: Reports:: Anxiety, Depression Family Hx:: No significant family history ROS - Cons Reports body ache(s), Reports chills - ENT Denies bleeding gums - Card Reports shortness of breath, Reports shortness of breath with activity - Resp Respiratory: Reports shortness of breath, Denies change in phlegm color, Reports chest congestion, Reports cough, Reports dyspnea, Reports dyspnea on exertion, Denies excessive phlegm production, Denies pain on inspiration, Denies pain with cough - GI Gastrointestingal: Reports: dyspepsia, dysphagia. Denies: vomiting blood - Psych Denies thoughts of hurting/killing others, Denies thoughts of hurting/killing yourself Meds Home Medications Medication Instructions Recorded Confirmed Type aspirin 81 mg tablet,delayed 81 mg PO HS 06/29/17 06/13/21 History release multivit with 1 tab PO DAILY 04/20/18 06/13/21 History grvwehac-cpto-ML-lutein 8 mg iron-400 mcg-300 mcg tablet pantoprazole 40 mg tablet,delayed 40 mg PO DAILY tab 04/20/18 06/13/21 History release Tiotropium Br/Olodaterol HCl 2 puff INHALATION DAILY 06/18/18 06/13/21 History [Stiolto Respimat Inhal Alcolu] metoprolol tartrate 25 mg tablet 25 mg PO BID 10/19/18 06/13/21 History Amlodipine Besylate 5 mg PO DAILY 04/21/21 06/13/21 History Fluticasone Furoate [Arnuity 1 puff IH DAILY 06/13/21 06/14/21 History Ellipta] Albuterol Sulfate [Albuterol 1 neb IH Q6HP PRN 06/14/21 06/14/21 History 0.083% 2.5mg/3mL neb] Albuterol Sulfate [Ventolin HFA 2 puffs IH Q6HP PRN 06/14/21 06/14/21 History Inhaler] Escitalopram Oxalate 10 mg PO DAILY 06/14/21 06/14/21 History Montelukast Sodium 10 mg PO HS 06/14/21 06/14/21 History Nitroglycerin 0.4 mg SL NEEDED PRN 06/14/21 06/14/21 History Pregabalin 200 mg PO BID 06/14/21 06/14/21 History diazePAM [Diazepam 2mg tablets] 2 mg PO DAILYP PRN 06/14/21 06/14/21 History Cefdinir [Omnicef 300mg Capsule] 300 mg PO BID 5 Days #10 cap 06/15/21 Rx clindamycin HCL [Cleocin 150mg 450 mg PO TID 7 Days #21 cap 06/15/21 Rx Capsule] predniSONE [Deltasone 10mg tablet] 40 mg PO DAILY 3 Days #12 tab 06/15/21 Rx Allergies Allergy/AdvReac Type Severity Reaction Status Date / Time nitrofurantoin Allergy Unknown Unknown Verified 06/15/21 08:57 [From MACROBID] allergy reaction nylon [NYLON] Allergy Un
--- NOTE | 2021-06-17 18:28 | PC.NURSE ---
PT IS SITTING UP IN THE BED WITH FAMILY AT BEDSIDE. ALERT AND ORIENTED X4. PT'S ONLY COMPLAINT IS BEING REALLY SOA. O2 SATURATION HAS MAINTAINED 92-95% ON 3 L NC. LUNG SOUNDS DIMINISHED. ABDOMEN SOFT/NON TENDER WITH ACTIVE BOWEL SOUNDS. PT TOLERATED SITTING UP IN THE CHAIR FOR A FEW HOURS THIS SHIFT. VSS. WILL CONTINUE TO MONITOR.
[2021-06-18] VITALS (21 sets, daily range): BP systolic 132–165; BP diastolic 70–84; PULSE 73–91; RESP 16–22; TEMP 36.6–37.1; O2SAT 91–99
--- NOTE | 2021-06-18 08:23 | HMH.ACPN2 ---
Internal Medicine - PN: Subj *Date: 06/18/21 *Time: 08:23 Interval history: Patient clinically appears in less distress this morning. Stable oxygen requirement of 3 L. Denies any chest pain. N.p.o. in anticipation for bronchoscopy. Afebrile overnight. Exam Vital signs and Labs for Last 24 Hours: Temp Pulse Resp BP Pulse Ox 98.6 F 87 16 134/71 97 06/18/21 04:00 06/18/21 05:42 06/18/21 04:00 06/18/21 04:00 06/18/21 05:42 Laboratory Results - last 24 hr 06/17/21 08:21: WBC 9.7, RBC 5.53 H, Hgb 14.0, Hct 45.2, MCV 81.8, MCH 25.3 L, MCHC 30.9 L, RDW 14.1, Plt Count 290, MPV 11.2 H, Neut % (Auto) 81.6 H, Lymph % (Auto) 12.8, [place] % (Auto) 4.7, Eos % (Auto) 0.2, Baso % (Auto) 0.7, Neut # (Auto) 7.9 H, Lymph # (Auto) 1.2, [place] # (Auto) 0.5, Eos # (Auto) 0.0, Baso # (Auto) 0.1 06/17/21 08:21: Sodium 128 L, Potassium 3.4 L, Chloride 82 L, Carbon Dioxide 41 H*, Anion Gap 8.4, BUN 12, Creatinine 0.40 L, Estimated Creat Clear 46, Estimated GFR 156, Est GFR ( Amer) 188, Glucose 133 H, Calcium 9.2 I & O for Last 24 hours: Intake & Output 06/15/21 06/16/21 06/17/21 06/18/21 23:59 23:59 23:59 23:59 Intake Total 540 / 540 1140 / 1540 1360 / 1360 Output Total 800 / 800 Balance 540 / 540 1140 / 740 560 / 560 Weight 59.024 kg 59 kg 59.477 kg Microbiology Reports for the Last 24 Hours: Microbiology 06/15/21 11:59 Sputum - Expectorated Sputum Gram Stain - Final 06/15/21 11:59 Sputum - Expectorated Sputum Sputum Culture - Preliminary Narrative: - Constitutional mild distress, obese, chronically ill appearing, 3L NC - *Routine HEENT Exam Head: Present: normocephalic Eye: Present: EOMI, PERRL ENT: Present: mucous membranes dry - *Routine Neck Exam Present: supple. Absent: lymphadenopathy - *Routine Respiratory Exam Present: prolonged expiratory phase, minimal wheeze, poor air movement. - *Routine Cardiovascular Exam Present: RRR - *Routine Abdominal Exam Present: soft, normoactive bowel sounds. Absent: tenderness - *Routine Extremities Exam Absent: cyanosis, clubbing, edema - *Routine Skin Exam Present: warm. Absent: rash - *Routine Neurological Exam Present: alert, oriented X3 Assessment and Plan (1) CAP (community acquired pneumonia) Status: Acute Qualifiers: Laterality: unspecified laterality Qualified Code(s): J18.9 - Pneumonia, unspecified organism Category: Medical Code(s): J18.9 - Pneumonia, unspecified organism (2) COPD exacerbation Status: Acute Category: Medical Code(s): J44.1 - Chronic obstructive pulmonary disease with (acute) exacerbation (3) CAD (coronary artery disease) Status: Chronic Qualifiers: Category: Medical Code(s): I25.10 - Atherosclerotic heart disease of [place] coronary artery without angina pectoris (4) Diastolic CHF Status: Chronic Category: Medical Code(s): I50.30 - Unspecified diastolic (congestive) heart failure (5) History of lung cancer Status: Chronic Category: Medical Code(s): Z85.118 - Personal history of other malignant neoplasm of bronchus and lung (6) HTN (hypertension) Status: Chronic Qualifiers: Hypertension type: essential hypertension Category: Medical Code(s): I10 - Essential (primary) hypertension (7) Severe protein-calorie malnutrition Status: Chronic Category: Medical Code(s): E43 - Unspecified severe protein-calorie malnutrition - Assessment and plan all Dx Assessment and Plan for all problems:: 75-year-old female on chronic oxygen therapy with COPD, Hx of lung cancer, Diastolic CHF, CAD who presented from home. Port/PSI score of 115 for pneumonia. Scores for age, female, CHF history, respiratory rate greater than 30 on presentation, sodium less than 130 on presentation. Arguable pleural effusion in right hemithorax with blunting of costophrenic angles on Chest X-ray, that if added would add 10 more points for score of 125. Admitted
--- NOTE | 2021-06-18 09:24 | HMH.PULMPN ---
Internal Medicine - PN: Subj *Date: 06/18/21 *Time: 11:16 Interval history: No acute respiratory events overnight. Exam - Constitutional Constitutional:: Present: no acute distress, comfortable - HENMT Exam HENMT: Present: normocephalic, atraumatic - Eye Exam Eyes:: Present: normal appearance both eyes and related structures - Neck Exam Neck:: Present: normal visual inspection - Respiratory Exam Respiratory:: Present: able to speak in complete sentences, no respiratory distress, decreased breath sounds. Absent: wheezing - Cardiovascular Exam Cardiac:: Present: S1, S2 - GI Exam GI:: Present: soft - Skin Exam Skin: Present: warm, no rash - Neurological Exam Neurological: Present: alert, awake, normal cognition - Extremities Exam Extremities: Present: no cyanosis, no clubbing, no edema Assessment and Plan (1) CAP (community acquired pneumonia) Status: Acute Qualifiers: Laterality: unspecified laterality Qualified Code(s): J18.9 - Pneumonia, unspecified organism Category: Medical Code(s): J18.9 - Pneumonia, unspecified organism (2) COPD exacerbation Status: Acute Category: Medical Code(s): J44.1 - Chronic obstructive pulmonary disease with (acute) exacerbation (3) CAD (coronary artery disease) Status: Chronic Qualifiers: Category: Medical Code(s): I25.10 - Atherosclerotic heart disease of [place] coronary artery without angina pectoris (4) Diastolic CHF Status: Chronic Category: Medical Code(s): I50.30 - Unspecified diastolic (congestive) heart failure (5) History of lung cancer Status: Chronic Category: Medical Code(s): Z85.118 - Personal history of other malignant neoplasm of bronchus and lung (6) HTN (hypertension) Status: Chronic Qualifiers: Hypertension type: essential hypertension Category: Medical Code(s): I10 - Essential (primary) hypertension (7) Severe protein-calorie malnutrition Status: Chronic Category: Medical Code(s): E43 - Unspecified severe protein-calorie malnutrition - Assessment and plan all Dx Assessment and Plan for all problems:: #COPD exacerbation: # Community-acquired pneumonia: Ms. Page is a 74-year-old female previous smoker more than [id number] smoking history, currently smoking e-cigarettes, COPD on inhalers, lung cancer status post radiation and resection in Sep-2017 at [facility] presented with worsening respiratory distress. Chest x-ray concerning for right lower lobe pulm infiltrate/atelectasis/wedge-shaped infiltrate. Treated with azithromycin prior to admission. Antibiotics were escalated ceftriaxone and clindamycin upon this admission. Patient admits improving respiratory distress up until this morning where she went to barium swallow patient had an anxiety attack that worsen her symptoms. Patient also complains of dysphagia, however denies any choking episodes. Interval update: Respiratory status remained stable, continue to improve. Plan: - Recommend to wan steroids to prednisone 40 mg daily - Complete antibiotic course for 7 days for CAP. - Recommend levalbuterol & ipratropium every 6 hours on a scheduled basis. - Budesonide every 12 scheduled. #Multiple pulmonary nodules: #Worsening mediastinal and Hilar lymphadenopathy: History of lung lung cancer status post chemoradiation. Patient is not followed with oncologist for the last 1 and half year. Most [facility] is from September 2020 that showed worsening lymphadenopathy along with worsening nodules. No follow-up imaging/PET scan available for review. CTA performed showed worsening mediastinal and right hilar lymphadenopathy along with near complete occlusion of the right BI along with right middle lobe collapse. This is highly concerning for recurrence of her lung cancer. The worsening right hilar lymphadenopathy along with the narrowing of the right bronchus intermedius were also noted in the C
--- NOTE | 2021-06-18 11:44 | PC.NURSE ---
1000- spoke with anesthesia who gave clearance to admin pt morning medications.
--- NOTE | 2021-06-18 12:57 | P.PN_ITS ---
[facility] Anesthesia Checklist - Patient Identification Patient Identification: Arm Band, Verbal (Name & ) - Structural Data Admitted From: Inpatient Planned Operative Procedure/s: Bronchoscopy Consent for Planned Operative Procedure(s) Verified: Yes Verified Documents: Surgical Consent - NPO Status Verified Time NPO: 00:00 - Chart Verification Results Verified: CBC, BMP - Airway Assessment C-Spine Mobility Assessed: Yes TMJ Mobility Assessed: Yes Dentition: Poor Dentition - Neurological Assessment Level of Consciousness: Awake, Alert, Appropriate - Anesthesia Plan Anesthesia Risk discussed: Yes ASA Class: III Anesthesia Type: General [facility] History I have reviewed the patient's past medical history: Yes Medical History: Reports:: Anxiety, Cancer, Chronic Obstructive Pulmonary Disease (COPD), Coronary Artery Disease, Depression, Hiatal Hernia, Home Oxygen, Hyperlipidemia, Hypertension Denies:: Diabetes Mellitus Type 1, Diabetes Mellitus Type 2, Internal Pacemaker, MRSA, Seizures *Have you ever received a pneumonia vaccine?: Yes *Have you received a flu vaccine this season?: Yes Other Medical History: Reports: Arthritis Anesthesia experience/problems:: none Other Surgeries: Yes: Angioplasty, Coronary Stent, Hysterectomy-Total, Other. No: Pacemaker Amputation: No Fractures: Yes (right knee , left elbow) - *Social History Smoking Status: Current every day smoker Tobacco Type: cigarettes # Packs/Day (cigarettes): 1 #Yrs smoked (if former smoker): 50 Alcohol Intake: never Alcohol Intake Frequency:: holidays/special occasions only Substance Use Type: denies use *Occupational Status:: other Housing: other Household Members: other *Travel in the last 8 weeks: None - Psychiatric History Pschychiatric History:: Reports:: Anxiety, Depression Family Hx:: No significant family history
--- NOTE | 2021-06-18 14:24 | DIET.NUTRFU ---
Patient gone for procedure, spoke to daughter who is here often and helps with care at home. Patient is on MSOFT ground meat, NPO for current procedure. RD reviewed recent meal intake prior to procedure. Daughter reports she has been eating soft moist foods like chicken salad and tuna salad with fairly good intake. 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 Dislikes the boost breeze, daughter feels she dislikes all supplements. Family will help with meal prep when discharged. Goal is to maintain CBW or regain some back.
--- NOTE | 2021-06-18 14:49 | HMH.ANESI ---
[facility] Anesthesia Record Part I Intake, IV Amount: 500 Estimated blood loss (mL): 0 Urine output (mL): 0 Blood Pressure: 152/79 SaO2: 94 Pulse Rate: 82 Respiratory Rate: 16 Temperature: 98.1 F Patient is:: Drowsy, Nasal O2, Stable Stable to PACU at:: 14:45
--- NOTE | 2021-06-18 15:21 | HMH.BRONCH ---
- Procedure: Date: 06/18/21 Patient Date of :: 1945 Procedure Performed:: Bronchoscopy with airway examination, endobronchial biopsy and EBUS FNA Indications:: Endobronchial mass, mediastinal and hilar lymphadenopathy Performing Provider:: Matthew Elias MD Referring Provider:: Dr. Yun Sedation:: General anesthesia Procedure:: Bronchoscopy with airway examination, endobronchial biopsy and EBUS FNA: A clean diagnostic bronchoscopy is planned today ET tube and airways were examined up to subsegmental bronchi. No evidence of food particles or bleeding or mucous plugging or blood clots noted. Airways in the left lung appeared normal. A large endobronchial lesion was noted to the right lower lobe bronchus with near complete occlusion. Right middle lobe bronchus appeared narrowed however no endobronchial lesions noted proximally. Endobronchial biopsies were performed for the mass noted in the right lower lobe bronchus and was sent in formalin for cytological examination. No active bleeding noted after the procedure The diagnostic bronchoscopy was retracted and the EBUS bronchoscopy was advanced under surveillance was performed. Patient noted to have lymphadenopathy at stations 10 R, 7 and 4R. FNA was performed with 5 passes in each of these lymph node stations and FNA samples were sent separately for cytopathologic examination. Patient tolerated the procedure well Findings:: Please see the procedure note Recommendations:: The procedure note. Follow-up with oncologist. Complications:: none Estimated blood obtained (mL): 10
--- NOTE | 2021-06-18 19:22 | PC.NURSE ---
SHE IS AOX4, ABLE OT MAKE NEEDS KNOWN TO STAFF, CONTINUES ON 3LNC FOR O2 SUPPORT. AMBULATES TO [facility] WITH ASSIST X1, HAS NOT C/O SOB SINCE RETURNING FROM BRONCHOSCOPY.
[2021-06-19] VITALS: BP 116/61; PULSE 75; RESP 16; TEMP 36.6; O2SAT 96
[2021-06-19 04:00] VITALS: BP 119/59; PULSE 60; PULSE 67; RESP 18; TEMP 36.7; O2SAT 95
[2021-06-19 05:01] VITALS: BMI 26.4
[2021-06-19 05:39] VITALS: PULSE 72; PULSE 76; O2SAT 99
[2021-06-19 06:50] LABS: Blood Urea Nitrogen 8 mg/dl (7-17); Calcium 8.3 mg/dl (8.4-10.2); Chloride 82 mmol/L (98-107); Creatinine Clearance Estimated 47 mL/min (50-200); Estimated Glomerular Filt Rate 156 ml/min (>60); GFR (African American) 188 ML/MIN (>60); Glucose 83 mg/dl (74-100); Potassium 3.3 mmoL/L (3.5-5.1); Sodium 127 mmol/L (136-145)
[2021-06-19 06:59] LABS: Anion Gap 4.3 mEq/L (5-15); Carbon Dioxide 44 mmol/L (22.0-30.0)
--- NOTE | 2021-06-19 07:38 | HMH.ANESII ---
[facility] Anesthesia Record Part II Discharge Time: 15:15 Destination: Medical Surgical Department PACU nurse assessment reviewed?: Yes Patient Condition:: Good Anesthesia Complications:: None Swallowing reflex intact?: Yes Cyanosis?: No Blood Pressure: 137/73 Pulse Rate: 89 Temperature: 97.8 F Mental Status: Alert & Oriented Pain level:: 0 Nausea and/or vomitting:: None Intake, IV Amount: 0
[2021-06-19 07:39] VITALS: BP 137/73; PULSE 89; TEMP 36.6
[2021-06-19 08:00] VITALS: BP 134/65; PULSE 84; RESP 18; TEMP 36.6; O2SAT 95; O2SAT 97
[2021-06-19 08:30] LABS: Basophils % 0.3 % (0.1-2.0); Eosinophils % 0.1 % (0.1-12.0); Hematocrit 38.1 % (37.0-47.0); Hemoglobin 12.1 g/dL (12.2-16.2); Lymphocytes # 1.9 K/mm3 (0.7-4.5); Lymphocytes % 19.1 % (10-50); Mean Corpuscular HGB Conc 31.7 g/dL (31.8-35.4); Mean Corpuscular Hemoglobin 25.8 pg (27.0-31.2); Mean Corpuscular Volume 81.4 fl (81-99); Mean Platelet Volume 11.6 fl (7.4-10.4); Monocytes # 0.7 K/mm3 (0.1-1.0); Monocytes % 7.2 % (1.7-9.3); Neutrophils # 7.1 K/mm3 (1.8-7.8); Neutrophils % 73.3 % (37.0-80.0); Platelet Count 238 K/mm3 (142-424); Red Blood Count 4.68 M/mm3 (4.20-5.40); Red Cell Distribution Width 13.9 % (11.5-17.5); White Blood Count 9.7 K/mm3 (4.8-10.8)
--- NOTE | 2021-06-19 09:12 | HMH.DCSUM ---
General - General Admission date:: 06/13/21 Discharge date: 06/19/21 HPI HPI: 75-year-old white female with history of lung cancer, status post lobar resection and radiation therapy in the last 3 to 4 years. Has done well since that time. Also has oxygen dependent COPD. Had cough and congestion over the past week, treated by our office with azithromycin, but this is failed to improve her situation. Came to the emergency department, found to have increased oxygen requirement, wheezing, coughing, shortness of air, new infiltrate on chest x-ray. Admitted to hospital for failed outpatient therapy pneumonia. She notes that it has been little bit more difficult to swallow and she has had a couple of choking episodes over the past couple of weeks. Hospital Course Hospital Course: Patient was admitted, found to have a significant COPD exacerbation and evidence of pneumonia. She improved slightly with IV fluids, IV antibiotics and steroid therapy as well as neb treatments. She had a lot of issues with anxiety and swallowing problems, nebulizers were switched over to Xopenex and she did much better with this with less tachycardia, less tremor. Because of her worsening pulmonary infiltrate over baseline and her history of severe lung disease Dr. Elias was consulted, because of her CT appearance of bronchial obstruction she was scheduled for bronchoscopy which occurred yesterday. Unfortunately, this revealed evidence of occlusive bronchogenic mass consistent with bronchogenic carcinoma. Patient and daughter aware of this. This morning she feels much better, eating and drinking well, swallowing well, tolerating oxygen therapy well and her Xopenex nebs well. Plan will be to discharge home today with home health. My [id number] exam today shows that patient is weak, has difficulty walking and leaving home, qualifies for PT/OT/nursing care evaluation. Plan will be to discharge home with 2 more days of antibiotics, Xopenex nebulizer treatments. Follow-up with oncology in the next week and a half in our office as scheduled. Objective Vital signs: Temp Pulse Resp BP Pulse Ox 97.8 F 84 18 134/65 97 06/19/21 08:00 06/19/21 08:00 06/19/21 08:00 06/19/21 08:00 06/19/21 08:00 no acute distress - *Routine HEENT Exam Head: Present: normocephalic Eye: Present: EOMI, PERRL ENT: Present: mucous membranes moist - *Routine Neck Exam Present: supple - *Routine Respiratory Exam Present: rhonchi, wheezes - *Routine Cardiovascular Exam Present: RRR - *Routine Abdominal Exam Present: soft, normoactive bowel sounds. Absent: tenderness - *Routine Extremities Exam Absent: cyanosis, clubbing, edema Comments: Globally weak. Old skin bruising. - *Routine Skin Exam Present: warm. Absent: rash - Detailed Eye Exam Eyelids: Bilateral normal inspection Results Labs on day of discharge: Labs from last 24 hours 06/19/21 06/19/21 05:23 05:23 WBC 9.7 RBC 4.68 Hgb 12.1 L Hct 38.1 MCV 81.4 MCH 25.8 L MCHC 31.7 L RDW 13.9 Plt Count 238 MPV 11.6 H Neut % (Auto) 73.3 Lymph % (Auto) 19.1 [place] % (Auto) 7.2 Eos % (Auto) 0.1 Baso % (Auto) 0.3 Neut # (Auto) 7.1 Lymph # (Auto) 1.9 [place] # (Auto) 0.7 Eos # (Auto) 0.0 Baso # (Auto) 0.0 Sodium 127 L Potassium 3.3 L Chloride 82 L Carbon Dioxide 44 H* Anion Gap 4.3 L BUN 8 D Creatinine 0.40 L Estimated Creat Clear 47 Estimated GFR 156 Est GFR ( Amer) 188 Glucose 83 Calcium 8.3 L Preliminary micro results at discharge 06/15/21 11:59 Sputum Culture - Preliminary Sputum - Expectorated Sputum DS: Diagnosis - Discharge Diagnosis (1) CAP (community acquired pneumonia) Status: Acute (2) COPD exacerbation Status: Acute (3) CAD (coronary artery disease) Status: Chronic (4) Diastolic CHF Status: Chronic (5) History of lung cancer Stat
[2021-06-19 09:31] VITALS: PULSE 83; PULSE 87
--- NOTE | 2021-06-19 13:29 | HMH.PULMPN ---
Internal Medicine - PN: Subj *Date: 06/19/21 *Time: 13:29 Interval history: No acute respiratory events overnight. Exam - Constitutional Constitutional:: Present: no acute distress, comfortable - HENMT Exam HENMT: Present: normocephalic, atraumatic - Eye Exam Eyes:: Present: normal appearance both eyes and related structures - Neck Exam Neck:: Present: normal visual inspection - Respiratory Exam Respiratory:: Present: able to speak in complete sentences, no respiratory distress, decreased breath sounds. Absent: wheezing - Cardiovascular Exam Cardiac:: Present: S1, S2 - GI Exam GI:: Present: soft - Skin Exam Skin: Present: warm, no rash - Neurological Exam Neurological: Present: alert, awake, normal cognition - Extremities Exam Extremities: Present: no cyanosis, no clubbing, no edema - Psychiatric Exam Psychiatric: Present: normal affect Assessment and Plan (1) CAP (community acquired pneumonia) Status: Acute Qualifiers: Laterality: unspecified laterality Qualified Code(s): J18.9 - Pneumonia, unspecified organism Category: Medical Code(s): J18.9 - Pneumonia, unspecified organism (2) COPD exacerbation Status: Acute Category: Medical Code(s): J44.1 - Chronic obstructive pulmonary disease with (acute) exacerbation (3) CAD (coronary artery disease) Status: Chronic Qualifiers: Category: Medical Code(s): I25.10 - Atherosclerotic heart disease of [place] coronary artery without angina pectoris (4) Diastolic CHF Status: Chronic Category: Medical Code(s): I50.30 - Unspecified diastolic (congestive) heart failure (5) History of lung cancer Status: Chronic Category: Medical Code(s): Z85.118 - Personal history of other malignant neoplasm of bronchus and lung (6) HTN (hypertension) Status: Chronic Qualifiers: Hypertension type: essential hypertension Category: Medical Code(s): I10 - Essential (primary) hypertension (7) Severe protein-calorie malnutrition Status: Chronic Category: Medical Code(s): E43 - Unspecified severe protein-calorie malnutrition (8) Mass of right lung Status: Acute Category: Medical Code(s): R91.8 - Other nonspecific abnormal finding of lung field - Assessment and plan all Dx Assessment and Plan for all problems:: #Multiple pulmonary nodules: #Worsening mediastinal and Hilar lymphadenopathy: History of lung lung cancer status post chemoradiation. Patient is not followed with oncologist for the last 1 and half year. Most recent CT scan at [facility] is from September 2020 that showed worsening lymphadenopathy along with worsening nodules. No follow-up imaging/PET scan available for review. CTA performed showed worsening mediastinal and right hilar lymphadenopathy endobronchial lesion. Status post bronchoscopy with endobronchial valve for malignancy. Plan: -Admit to schedule oncology follow-up as an outpatient basis. -Follow in pulmonary clinic in 5 days. #COPD exacerbation: # Community-acquired pneumonia: Ms. Page is a 74-year-old female previous smoker more than [id number] smoking history, currently smoking e-cigarettes, COPD on inhalers, lung cancer status post radiation and resection in Sep-2017 at [facility] presented with worsening respiratory distress. Chest x-ray concerning for right lower lobe pulm infiltrate/atelectasis/wedge-shaped infiltrate. Treated with azithromycin prior to admission. Antibiotics were escalated ceftriaxone and clindamycin upon this admission. Patient admits improving respiratory distress up until this morning where she went to barium swallow patient had an anxiety attack that worsen her symptoms. Patient also complains of dysphagia, however denies any choking episodes. Interval update: Respiratory status remained stable, continue to improve. Plan: - Recommend to wan steroids to prednisone 40 mg daily to complete a total of 5-day course - Complete an
== END 2021-06-19 13:00 | disposition home or self-care (01) | DRG 193 ==
LOC: ER 15:05 → 2ND 15:33
PROVIDERS: Internal Medicine Adolescent Medicine; Internal Medicine Pulmonary Disease; Admitting Provider Internal Medicine Adolescent Medicine; Emergency Provider Emergency Medicine; PCP Nurse Practitioner Family; Visit Provider Internal Medicine Adolescent Medicine
DX: J18.9 Pneumonia, unspecified organism (principal); E43 Unspecified severe protein-calorie malnutrition; J44.1 Chronic obstructive pulmonary disease with (acute) exacerbation; J44.0 Chronic obstructive pulmonary disease with (acute) lower respiratory infection; I50.32 Chronic diastolic (congestive) heart failure; J96.11 Chronic respiratory failure with hypoxia; C34.31 Malignant neoplasm of lower lobe, right bronchus or lung; Z99.81 Dependence on supplemental oxygen; Z85.118 Personal history of other malignant neoplasm of bronchus and lung; I11.0 Hypertensive heart disease with heart failure; E66.9 Obesity, unspecified; Z68.26 Body mass index [BMI] 26.0-26.9, adult; F17.290 Nicotine dependence, other tobacco product, uncomplicated; Z95.5 Presence of coronary angioplasty implant and graft
CPT/HCPCS: 31628; 36415; 71045; 71275; 74220; 80048; 80053; 82803; 83605; 84484; 85007; 85025; 87040; 87070; 87205; 88305; 88342; 92610; 93005; 94640; 94760; 94761; 96365; 96375; 97110; 97163; 97165; 97530; 99284; C9803; J0696; J2405; Q9967; U0003; U0005

== ENCOUNTER → 2021-07-02 08:18 | Outpatient (CLI) | payer MEDICARE, SELFPAY ==
[2021-07-02 08:59] LABS: Blood Urea Nitrogen 12 mg/dl (7-17); Estimated Glomerular Filt Rate 120 ml/min (>60); GFR (African American) 146 ML/MIN (>60)
--- NOTE | 2021-07-02 09:00 | MR_ITS ---
FINAL REPORT CLINICAL HISTORY: LUNG CANCER DIAGNOSED IN 2018, FOUND NEW SPOTS June. FINDINGS: Multiplanar MR imaging of the brain was performed without and with contrast. There is mild age-appropriate atrophy. Scattered foci of increased T2 signal are seen in the cerebral white matter that have a nonspecific appearance but likely represent severe chronic ischemic/gliotic changes. There is no evidence of intracranial hemorrhage or mass. No abnormal ventricular dilatation is identified. There is no evidence of shift of the midline structures. No abnormal extra-axial fluid collection is seen. No area of abnormal restricted diffusion is identified. The posterior fossa and brainstem have an unremarkable appearance. No abnormal contrast enhancement is seen. Normal major vessel vascular flow voids are seen. There is opacification of multiple mastoid air cells. IMPRESSION: Atrophy and severe chronic ischemic/gliotic changes. No acute intracranial abnormality. Reviewed, Interpreted and Dictated by Abdias Love III, MD Transcribed by Carol Mireles Authenticated by Abdias Love III, MD on 07/02/2021 11:40:59 AM [facility]
== END ==
PROVIDERS: PCP Nurse Practitioner Family; Visit Provider Internal Medicine Medical Oncology
DX: C34.91 Malignant neoplasm of unspecified part of right bronchus or lung (principal)
CPT/HCPCS: 36415; 70553; 82565; 84520; A9576

== ENCOUNTER 2021-08-07 13:11 | Outpatient (CLI) | payer MEDICARE, SELFPAY ==
[2021-08-07 13:20] VITALS: BMI 28.1
[2021-08-07 13:57] LABS: Chloride 87 mmol/L (98-107); Sodium 127 mmol/L (136-145)
[2021-08-07 13:59] LABS: Basophils # 0.1 K/mm3 (0-0.2); Basophils % 0.8 % (0.1-2.0); Blood Urea Nitrogen 10 mg/dl (7-17); Creatinine Clearance Estimated 49 mL/min (50-200); Eosinophils # 0.2 K/mm3 (0.0-0.4); Estimated Glomerular Filt Rate 120 ml/min (>60); GFR (African American) 145 ML/MIN (>60); Hematocrit 37.5 % (37.0-47.0); Hemoglobin 11.6 g/dL (12.2-16.2); Lymphocytes # 1.5 K/mm3 (0.7-4.5); Mean Corpuscular Hemoglobin 25.3 pg (27.0-31.2); Mean Corpuscular Volume 81.7 fl (81-99); Mean Platelet Volume 11.8 fl (7.4-10.4); Monocytes # 0.4 K/mm3 (0.1-1.0); Monocytes % 5.6 % (1.7-9.3); Neutrophils # 5.4 K/mm3 (1.8-7.8); Neutrophils % 71.6 % (37.0-80.0); Platelet Count 177 K/mm3 (142-424); Red Blood Count 4.59 M/mm3 (4.20-5.40); Red Cell Distribution Width 14.5 % (11.5-17.5); White Blood Count 7.6 K/mm3 (4.8-10.8)
[2021-08-07 14:00] LABS: Alanine Aminotransferase 11 U/L (12-78); Albumin Level 4.3 g/dl (3.5-5.0); Albumin/Globulin Ratio 1.7 (1.1-1.8); Alkaline Phosphatase 61 U/L (38-126); Aspartate Amino Transferase 23 U/L (14-36); Bilirubin,Total 0.5 mg/dl (0.2-1.3); Calcium 8.2 mg/dl (8.4-10.2); Carbon Dioxide 37 mmol/L (22.0-30.0); Globulin 2.5 g/dL (1.3-3.2); Glucose 74 mg/dl (74-100); Total Protein,Serum 6.8 g/dl (6.3-8.2)
[2021-08-07 14:26] VITALS: BP 154/78; PULSE 66; RESP 18; TEMP 36.3; O2SAT 97
[2021-08-07 14:31] LABS: Thyroid Stimulating Hormone 1.11 uIU/mL (0.465-4.68)
[2021-08-07 15:10] VITALS: BP 132/61; PULSE 64; RESP 18; O2SAT 98
--- NOTE | 2021-08-07 16:54 | PC.NURSE ---
08/07/21 1350-awaiting lab results to determine if treatment can be given. Reviewed with pt and daughter information regarding Keytruda and the most common possible side effects including fatigue, weakness, nausea, diarrhea. Pt instructed to report immediately any severe chest pain, sob, rash, itching, etc during the infusion. Pt/family informed of a possible immune reaction causing itis syndromes and if symptoms appear to report to MD or ER immediately and make sure to tell them she is taking this specific medication, pt enc to call outpt staff with any questions or concerns. Pt given a warm blanket and food ordered per request.
== END 2021-08-07 15:10 | disposition home or self-care (01) ==
LOC: INF 13:13
PROVIDERS: PCP Nurse Practitioner Family; Visit Provider Internal Medicine Medical Oncology
DX: Z51.11 Encounter for antineoplastic chemotherapy (principal); C34.90 Malignant neoplasm of unspecified part of unspecified bronchus or lung; Z79.899 Other long term (current) drug therapy
CPT/HCPCS: 80053; 82533; 84443; 85025; 96413; J9271

== ENCOUNTER 2021-09-02 10:00 | Outpatient (CLI) | payer MEDICARE, SELFPAY ==
[2021-09-02 10:13] VITALS: BMI 28.1
[2021-09-02 10:31] LABS: Basophils # 0.1 K/mm3 (0-0.2); Eosinophils # 0.2 K/mm3 (0.0-0.4); Eosinophils % 3.4 % (0.1-12.0); Hematocrit 36.9 % (37.0-47.0); Hemoglobin 11.6 g/dL (12.2-16.2); Lymphocytes # 1.1 K/mm3 (0.7-4.5); Lymphocytes % 16.5 % (10-50); Mean Corpuscular HGB Conc 31.4 g/dL (31.8-35.4); Mean Corpuscular Hemoglobin 25.3 pg (27.0-31.2); Mean Corpuscular Volume 80.7 fl (81-99); Mean Platelet Volume 10.7 fl (7.4-10.4); Monocytes # 0.4 K/mm3 (0.1-1.0); Monocytes % 6.1 % (1.7-9.3); Neutrophils # 4.8 K/mm3 (1.8-7.8); Neutrophils % 72.9 % (37.0-80.0); Platelet Count 290 K/mm3 (142-424); Red Blood Count 4.58 M/mm3 (4.20-5.40); Red Cell Distribution Width 13.7 % (11.5-17.5); White Blood Count 6.6 K/mm3 (4.8-10.8)
[2021-09-02 10:35] LABS: Chloride 91 mmol/L (98-107); Potassium 3.8 mmoL/L (3.5-5.1); Sodium 132 mmol/L (136-145)
[2021-09-02 10:38] LABS: Alanine Aminotransferase 9 U/L (12-78); Albumin Level 3.8 g/dl (3.5-5.0); Albumin/Globulin Ratio 1.5 (1.1-1.8); Alkaline Phosphatase 66 U/L (38-126); Anion Gap 7.8 mEq/L (5-15); Aspartate Amino Transferase 19 U/L (14-36); Bilirubin,Total 0.3 mg/dl (0.2-1.3); Blood Urea Nitrogen 6 mg/dl (7-17); Carbon Dioxide 37 mmol/L (22.0-30.0); Creatinine Clearance Estimated 49 mL/min (50-200); Estimated Glomerular Filt Rate 155 ml/min (>60); GFR (African American) 188 ML/MIN (>60); Globulin 2.5 g/dL (1.3-3.2); Glucose 105 mg/dl (74-100); Total Protein,Serum 6.3 g/dl (6.3-8.2)
[2021-09-02 11:09] LABS: Thyroid Stimulating Hormone 1.41 uIU/mL (0.465-4.68)
[2021-09-02 11:37] LABS: Iron 51 ug/dL (37-170)
[2021-09-02 11:52] LABS: Total Iron Binding Capacity 383 ug/dL (265-497)
[2021-09-02 12:04] VITALS: BP 158/69; PULSE 61; RESP 20; TEMP 36.4; O2SAT 100
[2021-09-02 12:28] LABS: Vitamin B12 402 pg/mL (239-931)
[2021-09-02 12:31] LABS: Ferritin 13.1 ng/ml (11.1-264)
[2021-09-02 12:55] VITALS: BP 139/62; PULSE 71; RESP 20; O2SAT 99
[2021-09-03 13:25] LABS: Adrenocorticotropic Hormone 14.7 pg/mL (7.2-63.3)
== END 2021-09-02 13:00 | disposition home or self-care (01) ==
PROVIDERS: Visit Provider Internal Medicine Medical Oncology
DX: Z51.11 Encounter for antineoplastic chemotherapy (principal); C34.91 Malignant neoplasm of unspecified part of right bronchus or lung; D64.9 Anemia, unspecified; Z79.899 Other long term (current) drug therapy
CPT/HCPCS: 80053; 82024; 82533; 82607; 82728; 83540; 83550; 84443; 85025; 96413; J9271

== ENCOUNTER 2021-09-12 13:43 | Outpatient (CLI) | payer MEDICARE, SELFPAY ==
[2021-09-12 14:10] VITALS: BP 154/62; PULSE 56; RESP 18; O2SAT 100
[2021-09-12 14:45] VITALS: BP 165/76; PULSE 62; RESP 18
== END 2021-09-12 14:54 | disposition home or self-care (01) ==
LOC: INF 13:44
PROVIDERS: PCP Internal Medicine Adolescent Medicine; Visit Provider Internal Medicine Medical Oncology
DX: C34.91 Malignant neoplasm of unspecified part of right bronchus or lung (principal)
CPT/HCPCS: 96365; J1439

== ENCOUNTER 2021-09-18 13:39 | Outpatient (CLI) | payer MEDICARE, SELFPAY ==
[2021-09-18 13:56] VITALS: BP 142/58; PULSE 68; RESP 22; O2SAT 100
[2021-09-18 14:36] VITALS: BP 165/71; PULSE 60; RESP 20; O2SAT 99
== END 2021-09-18 14:36 | disposition home or self-care (01) ==
LOC: INF 13:40
PROVIDERS: PCP Internal Medicine Adolescent Medicine; Visit Provider Internal Medicine Medical Oncology
DX: C34.91 Malignant neoplasm of unspecified part of right bronchus or lung (principal)
CPT/HCPCS: 96365; J1439

== ENCOUNTER 2021-09-23 12:22 | Outpatient (CLI) | payer MEDICARE, SELFPAY ==
[2021-09-23 12:29] VITALS: BMI 27.3
[2021-09-23 12:48] LABS: Basophils # 0.1 K/mm3 (0-0.2); Basophils % 0.9 % (0.1-2.0); Eosinophils # 0.4 K/mm3 (0.0-0.4); Eosinophils % 4.9 % (0.1-12.0); Hemoglobin 11.7 g/dL (12.2-16.2); Lymphocytes # 1.6 K/mm3 (0.7-4.5); Lymphocytes % 20.4 % (10-50); Mean Corpuscular HGB Conc 30.7 g/dL (31.8-35.4); Mean Corpuscular Hemoglobin 25.1 pg (27.0-31.2); Mean Corpuscular Volume 81.7 fl (81-99); Mean Platelet Volume 11.1 fl (7.4-10.4); Monocytes # 0.4 K/mm3 (0.1-1.0); Monocytes % 5.2 % (1.7-9.3); Neutrophils # 5.3 K/mm3 (1.8-7.8); Neutrophils % 68.7 % (37.0-80.0); Platelet Count 233 K/mm3 (142-424); Red Blood Count 4.65 M/mm3 (4.20-5.40); White Blood Count 7.7 K/mm3 (4.8-10.8)
[2021-09-23 12:52] LABS: Chloride 95 mmol/L (98-107); Potassium 3.9 mmoL/L (3.5-5.1); Sodium 134 mmol/L (136-145)
[2021-09-23 12:54] LABS: Blood Urea Nitrogen 6 mg/dl (7-17); Creatinine Clearance Estimated 48 mL/min (50-200); Estimated Glomerular Filt Rate 155 ml/min (>60); GFR (African American) 188 ML/MIN (>60)
[2021-09-23 12:55] LABS: Alanine Aminotransferase 12 U/L (12-78); Albumin Level 3.7 g/dl (3.5-5.0); Albumin/Globulin Ratio 1.5 (1.1-1.8); Alkaline Phosphatase 69 U/L (38-126); Anion Gap 4.9 mEq/L (5-15); Aspartate Amino Transferase 25 U/L (14-36); Bilirubin,Total 0.2 mg/dl (0.2-1.3); Calcium 8.9 mg/dl (8.4-10.2); Carbon Dioxide 38 mmol/L (22.0-30.0); Globulin 2.4 g/dL (1.3-3.2); Glucose 95 mg/dl (74-100); Total Protein,Serum 6.1 g/dl (6.3-8.2)
[2021-09-23 13:29] LABS: Thyroid Stimulating Hormone 1.42 uIU/mL (0.465-4.68)
[2021-09-23 14:50] VITALS: BP 127/76; PULSE 66; RESP 18; TEMP 36.2; O2SAT 98
[2021-09-23 15:05] VITALS: BP 136/67; PULSE 66; RESP 18
== END 2021-09-23 15:05 | disposition home or self-care (01) ==
PROVIDERS: PCP Internal Medicine Adolescent Medicine; Visit Provider Internal Medicine Medical Oncology
DX: C34.91 Malignant neoplasm of unspecified part of right bronchus or lung (principal); Z79.899 Other long term (current) drug therapy
CPT/HCPCS: 80053; 82024; 82533; 84443; 85025; 96413; J9271

== ENCOUNTER → 2021-10-08 09:52 | Outpatient (CLI) | payer MEDICARE, SELFPAY ==
--- NOTE | 2021-10-08 09:58 | CT_ITS ---
FINAL REPORT TECHNIQUE: Axial CT images of the abdomen and pelvis were obtained before and after the administration of IV contrast. Oral contrast was administered.This study was performed with techniques to keep radiation doses as low as reasonably achievable (ALARA). Individualized dose reduction techniques using automated exposure control or adjustment of mA and/or kV according to the patient''s size were employed. CLINICAL HISTORY: LUNG CANCER COMPARISON: October 25, 2020 FINDINGS: CT ABDOMEN & PELVIS W & W/O CONTRAST Abdomen: The heart is normal in size. There is a less than 1 cm cyst in the anterior liver dome. The gallbladder surgically absent. There is mild biliary ductal dilatation. The spleen is unremarkable. There is mild left adrenal gland enlargement which is stable. The pancreas has an unremarkable appearance. There are 2 less than 1 cm simple cysts in the left kidney. The aorta is normal in caliber. There is no free fluid or adenopathy. No mass or abnormal fluid collection is seen. There are diffuse vascular calcifications. Precontrast images demonstrate no evidence of nephrolithiasis. Pelvis: The appendix is not seen. The urinary bladder is unremarkable. No inflammatory process is seen. There is no evidence of mass or adenopathy. There is no evidence of bowel obstruction. There is sigmoid diverticulosis. There are postoperative changes from hysterectomy. IMPRESSION: No evidence of metastatic disease. Two, less than 1 cm left renal cysts. No additional follow-up recommended. Reviewed, Interpreted and Dictated by Abdias Love III, MD Transcribed by Nelda Aceves Authenticated by Abdias Love III, MD on 10/08/2021 01:55:54 PM [facility]
--- NOTE | 2021-10-08 09:58 | CT_ITS ---
FINAL REPORT TECHNIQUE: Axial images through the chest were performed by computed tomography before and after the administration of IV contrast. This study was performed with techniques to keep radiation doses as low as reasonably achievable, (ALARA). Individualized dose reduction techniques using automated exposure control or adjustment of mA and/or kV according to the patient's size were employed. CLINICAL HISTORY: LUNG CANCER, SOA COMPARISON: 10/25/2021 06/17/2021 FINDINGS: CT CHEST W & W/O CONTRAST There is a lower right paratracheal lymph node that measures 13 mm and was 13 mm. A posterior right hilar lymph node measures 8 mm and was 18 mm. The other right hilar lymph nodes are also improved. There is no new mediastinal or hilar mass. There is no axillary adenopathy. The heart size is normal. There is no pericardial effusion. There is a small to moderate partially loculated right pleural effusion which is larger. Limited images of the upper abdomen are unremarkable. On the lung window images there are severe changes of emphysema. There is right middle lobe collapse and postoperative change. A nodule in the left upper lobe measures 9 mm and is stable. There are several calcified granulomas in the left lower lobe. The spiculated opacity in the posterior right lower lobe is not as well visualized and is likely partially obscured by the atelectasis and is likely stable. IMPRESSION: Partially improved mediastinal and right hilar adenopathy. Worsening small to moderate right pleural effusion and right lower lobe atelectasis. Right lung base spiculated opacity which is probably stable but partially obscured. Nonspecific left upper lobe nodule, stable. Reviewed, Interpreted and Dictated by Abdias Love III, MD Transcribed by Nelda Aceves Authenticated by Abdias Love III, MD on 10/08/2021 01:55:51 PM [facility]
== END ==
PROVIDERS: PCP Internal Medicine Adolescent Medicine; Visit Provider Internal Medicine Medical Oncology
DX: C34.91 Malignant neoplasm of unspecified part of right bronchus or lung (principal); Z03.89 Encounter for observation for other suspected diseases and conditions ruled out
CPT/HCPCS: 71270; 74178; Q9967

== ENCOUNTER 2021-10-17 11:30 | Outpatient (CLI) | payer MEDICARE, SELFPAY ==
[2021-10-17 11:37] VITALS: BMI 21.7
[2021-10-17 11:53] LABS: Basophils % 0.7 % (0.1-2.0); Eosinophils # 0.3 K/mm3 (0.0-0.4); Eosinophils % 4.4 % (0.1-12.0); Hematocrit 41.7 % (37.0-47.0); Lymphocytes # 1.2 K/mm3 (0.7-4.5); Mean Corpuscular HGB Conc 31.2 g/dL (31.8-35.4); Mean Corpuscular Hemoglobin 25.9 pg (27.0-31.2); Mean Corpuscular Volume 82.8 fl (81-99); Mean Platelet Volume 10.7 fl (7.4-10.4); Monocytes # 0.3 K/mm3 (0.1-1.0); Monocytes % 4.8 % (1.7-9.3); Neutrophils % 69.1 % (37.0-80.0); Platelet Count 176 K/mm3 (142-424); Red Blood Count 5.04 M/mm3 (4.20-5.40); Red Cell Distribution Width 15.8 % (11.5-17.5); White Blood Count 5.8 K/mm3 (4.8-10.8)
[2021-10-17 11:56] LABS: Chloride 95 mmol/L (98-107); Potassium 4.2 mmoL/L (3.5-5.1); Sodium 134 mmol/L (136-145)
[2021-10-17 11:59] LABS: Alanine Aminotransferase 10 U/L (12-78); Albumin Level 3.8 g/dl (3.5-5.0); Albumin/Globulin Ratio 1.7 (1.1-1.8); Alkaline Phosphatase 72 U/L (38-126); Anion Gap 6.2 mEq/L (5-15); Aspartate Amino Transferase 24 U/L (14-36); Bilirubin,Total 0.4 mg/dl (0.2-1.3); Blood Urea Nitrogen 10 mg/dl (7-17); Calcium 8.7 mg/dl (8.4-10.2); Carbon Dioxide 37 mmol/L (22.0-30.0); Creatinine Clearance Estimated 49 mL/min (50-200); Estimated Glomerular Filt Rate 155 ml/min (>60); GFR (African American) 188 ML/MIN (>60); Globulin 2.3 g/dL (1.3-3.2); Glucose 96 mg/dl (74-100); Total Protein,Serum 6.1 g/dl (6.3-8.2)
[2021-10-17 12:32] LABS: Thyroid Stimulating Hormone 1.56 uIU/mL (0.465-4.68)
[2021-10-17 12:55] VITALS: BP 159/68; PULSE 56; RESP 20; TEMP 35.9; O2SAT 100
[2021-10-17 13:35] VITALS: BP 165/73; PULSE 66; RESP 20; O2SAT 100
== END 2021-10-17 13:50 | disposition home or self-care (01) ==
LOC: INF 11:35
PROVIDERS: PCP Internal Medicine Adolescent Medicine; Visit Provider Internal Medicine Medical Oncology
DX: Z51.11 Encounter for antineoplastic chemotherapy (principal); C34.91 Malignant neoplasm of unspecified part of right bronchus or lung; Z79.899 Other long term (current) drug therapy
CPT/HCPCS: 80053; 82533; 84443; 85025; 96413; J9271

== ENCOUNTER → 2021-10-21 10:39 | Outpatient (CLI) | payer MEDICARE, SELFPAY ==
--- NOTE | 2021-10-21 10:45 | US_ITS ---
FINAL REPORT TECHNIQUE: Sonographic imaging of the right chest was performed. CLINICAL HISTORY: LUNG CANCER; right pleural effusion; patient scheduled to have therapeutic thoracentesis, not enough fluid to safely perform FINDINGS: There is a small amount of pleural fluid in the right chest. However, sufficient pocket of fluid for safe performance of thoracentesis could not be found. Therefore, thoracentesis was cancelled. IMPRESSION: Insufficient fluid for thoracentesis. Reviewed, Interpreted and Dictated by Amanda Toussaint MD Transcribed by Itzel Dow PA-C Authenticated by Amanda Toussaint MD on 10/21/2021 02:25:[address] [facility]
== END ==
PROVIDERS: PCP Internal Medicine Adolescent Medicine; Visit Provider Internal Medicine Medical Oncology
DX: R18.8 Other ascites (principal); C34.90 Malignant neoplasm of unspecified part of unspecified bronchus or lung
CPT/HCPCS: 76604

== ENCOUNTER 2021-11-07 11:04 | Outpatient (CLI) | payer MEDICARE, SELFPAY ==
[2021-11-07 11:10] VITALS: BMI 27.3
[2021-11-07 11:39] LABS: Potassium 3.8 mmoL/L (3.5-5.1); Sodium 131 mmol/L (136-145)
[2021-11-07 11:40] LABS: Chloride 89 mmol/L (98-107)
[2021-11-07 11:42] LABS: Alanine Aminotransferase 14 U/L (12-78); Albumin/Globulin Ratio 1.7 (1.1-1.8); Alkaline Phosphatase 103 U/L (38-126); Aspartate Amino Transferase 22 U/L (14-36); Bilirubin,Total 0.2 mg/dl (0.2-1.3); Blood Urea Nitrogen 11 mg/dl (7-17); Creatinine Clearance Estimated 48 mL/min (50-200); Estimated Glomerular Filt Rate 155 ml/min (>60); GFR (African American) 188 ML/MIN (>60); Globulin 2.4 g/dL (1.3-3.2); Total Protein,Serum 6.4 g/dl (6.3-8.2)
[2021-11-07 11:43] LABS: Calcium 8.6 mg/dl (8.4-10.2); Glucose 115 mg/dl (74-100)
[2021-11-07 11:44] LABS: Basophils # 0.1 K/mm3 (0-0.2); Basophils % 0.6 % (0.1-2.0); Eosinophils # 0.3 K/mm3 (0.0-0.4); Eosinophils % 2.1 % (0.1-12.0); Hematocrit 44.4 % (37.0-47.0); Hemoglobin 13.9 g/dL (12.2-16.2); Lymphocytes # 1.3 K/mm3 (0.7-4.5); Lymphocytes % 9.8 % (10-50); Mean Corpuscular HGB Conc 31.3 g/dL (31.8-35.4); Mean Corpuscular Hemoglobin 26.4 pg (27.0-31.2); Mean Corpuscular Volume 84.4 fl (81-99); Mean Platelet Volume 10.2 fl (7.4-10.4); Monocytes # 0.6 K/mm3 (0.1-1.0); Monocytes % 4.7 % (1.7-9.3); Neutrophils # 11.3 K/mm3 (1.8-7.8); Neutrophils % 82.9 % (37.0-80.0); Platelet Count 215 K/mm3 (142-424); Red Blood Count 5.27 M/mm3 (4.20-5.40); Red Cell Distribution Width 15.4 % (11.5-17.5); White Blood Count 13.6 K/mm3 (4.8-10.8)
[2021-11-07 11:49] LABS: Anion Gap 6.8 mEq/L (5-15); Carbon Dioxide 39 mmol/L (22.0-30.0)
[2021-11-07 12:14] LABS: Thyroid Stimulating Hormone 1.65 uIU/mL (0.465-4.68)
[2021-11-07 13:19] VITALS: BP 137/57; PULSE 87; RESP 18; TEMP 36.3; O2SAT 97
[2021-11-07 13:40] VITALS: BP 135/52; PULSE 86; RESP 18; O2SAT 97
[2021-11-07 13:50] VITALS: BP 130/54; PULSE 85; RESP 18; TEMP 36.3; O2SAT 97
[2021-11-08 13:12] LABS: Adrenocorticotropic Hormone 2.3 pg/mL (7.2-63.3)
== END 2021-11-07 14:00 | disposition home or self-care (01) ==
LOC: INF 11:05
PROVIDERS: PCP Internal Medicine Adolescent Medicine; Visit Provider Internal Medicine Medical Oncology
DX: Z51.11 Encounter for antineoplastic chemotherapy (principal); C34.91 Malignant neoplasm of unspecified part of right bronchus or lung; Z79.899 Other long term (current) drug therapy
CPT/HCPCS: 80053; 82024; 82533; 84443; 85025; 96413; J9271

== ENCOUNTER 2021-11-22 13:31 | Emergency (ER) | payer MEDICARE, SELFPAY ==
[2021-11-22] VITALS (11 sets, daily range): BP systolic 102–167; BP diastolic 60–88; PULSE 87–100; RESP 12–22; TEMP 36.6–36.8; O2SAT 94–99; BMI 27.5
--- NOTE | 2021-11-22 13:42 | XR_ITS ---
FINAL REPORT CLINICAL HISTORY: sob, hx lung cancer COMPARISON: April 21, 2021 FINDINGS: A single portable view of the chest was obtained. The heart size and pulmonary vascularity are within normal limits. The mediastinum is within normal limits. There are worsening right base opacities, favor atelectasis or scarring. There is a small right pleural effusion or pleural thickening, worse since prior exam. The bony thorax is intact. IMPRESSION: Worsening right base opacities, favor atelectasis or scarring. Small right pleural effusion or pleural thickening, worse since prior exam. Reviewed, Interpreted and Dictated by Abdias Love III, MD Transcribed by Leta Saul Authenticated and [facility]
--- NOTE | 2021-11-22 13:43 | ECG_ITS ---
APPROVED REPORT Exam: Resting ECG HR:88 bpm ECG Measurements Heart Rate 88 AXES MD 121 P 72 QRSd 66 QRS 47 QT 347 T 58 QTc 392 Conclusion SINUS RHYTHM Left atrial abnormality BORDERLINE ECG UNCONFIRMED REPORT Electronically signed by : Harmeet Yun MD 11/22/2021 17:21:50
--- NOTE | 2021-11-22 14:02 | HMH.EDGENADL ---
ED Disposition Clinical Impression: Diverticulitis, Chronic respiratory failure with hypoxia and hypercapnia Metastatic primary lung cancer Qualifiers: Laterality: unspecified laterality Qualified Code(s): C34.90 - Malignant neoplasm of unspecified part of unspecified bronchus or lung Pathologic compression fracture of thoracic vertebra Qualifiers: Encounter type: initial encounter Qualified Code(s): M48.54XA - Collapsed vertebra, not elsewhere classified, thoracic region, initial encounter for fracture Disposition: Home, Self-Care Condition on Discharge: Fair Additional Instructions: Cipro as prescribed. Continue Zofran as needed for nausea. Follow-up with your primary care provider next week, call Thursday for appointment. Return sooner if worsening condition. Prescriptions: Ciprofloxacin HCl [Cipro 500mg Tab] 500 mg PO BID #20 tab Transmission Status: Pending to [facility] #[id number] Referrals: Harmeet Yun MD [Primary Care Provider] - - Critical Care Critical Care Time: No Attestation: On 11/22/21, the high probability of a clinically significant, sudden or life threatening deterioration of the following system(s) required my full and direct attention, intervention and personal management. The time I documented below is in addition to time spent performing reported procedures but includes the following listed in this critical care notation. Medical Decision Making - Morgan Inquiry Pt receiving controlled substance: No Vital Signs: 11/22/21 13:33 11/22/21 14:00 11/22/21 14:30 Temperature 98 F Temperature Source Oral Pulse Rate 91 H 93 H Pulse Rate [Radial] 100 H Respiratory Rate 16 18 19 Blood Pressure 160/75 H 164/79 H Blood Pressure [Right Arm] 164/88 H Blood Pressure Mean 103 107 Blood Pressure Mean [Right Arm] 113 Blood Pressure Position [Right Arm] Sitting 02 Sat by Pulse Oximetry 94 L 99 99 Oxygen Delivery Method Nasal Cannula Nasal Cannula Nasal Cannula Oxygen Flow Rate (LPM) 4 4 4 11/22/21 15:00 11/22/21 15:46 11/22/21 16:01 Temperature Temperature Source Pulse Rate 91 H 95 H 98 H Pulse Rate [Radial] Respiratory Rate 18 22 14 Blood Pressure 167/78 H 139/78 125/60 Blood Pressure [Right Arm] Blood Pressure Mean 108 98 81 Blood Pressure Mean [Right Arm] Blood Pressure Position [Right Arm] 02 Sat by Pulse Oximetry 96 94 L 94 L Oxygen Delivery Method Nasal Cannula Nasal Cannula Nasal Cannula Oxygen Flow Rate (LPM) 4 4 4 11/22/21 16:30 11/22/21 17:00 11/22/21 17:30 Temperature Temperature Source Pulse Rate 89 89 87 Pulse Rate [Radial] Respiratory Rate 13 12 16 Blood Pressure 131/62 128/64 102/61 L Blood Pressure [Right Arm] Blood Pressure Mean 85 86 74 Blood Pressure Mean [Right Arm] Blood Pressure Position [Right Arm] 02 Sat by Pulse Oximetry 97 98 97 Oxygen Delivery Method Nasal Cannula Nasal Cannula Nasal Cannula Oxygen Flow Rate (LPM) 4 4 4 11/22/21 18:00 Temperature Temperature Source Pulse Rate 92 H Pulse Rate [Radial] Respiratory Rate 14 Blood Pressure 140/79 Blood Pressure [Right Arm] Blood Pressure Mean 99 Blood Pressure Mean [Right Arm] Blood Pressure Position [Right Arm] 02 Sat by Pulse Oximetry 96 Oxygen Delivery Method Nasal Cannula Oxygen Flow Rate (LPM) 4 - Lab Data Lab Results 11/22/21 13:42: SARS-CoV-2 (PCR) Not detected, Influenza A Untype (PCR) Not detected, Influenza Type B (PCR) Not detected 11/22/21 13:52: WBC 8.4, RBC 5.47 H, Hgb 14.3, Hct 47.1 H, MCV 86.1, MCH 26.2 L, MCHC 30.4 L, RDW 14.9, Plt Count 284, MPV 10.6 H, Neut % (Auto) 77.3, Lymph % (Auto) 14.4, [place] % (Auto) 5.0, Eos % (Auto) 2.1, Baso % (Auto) 1.2, Neut # (Auto) 6.5, Lymph # (Auto) 1.2, [place] # (Auto) 0.4, Eos # (Auto) 0.2, Baso # (Auto) 0.1 11/22/21 13:52: Sodium 128 L, Potassium 4.0, Chloride 83 L, Carbon Dioxide 42 H*, Anion Gap 7.0, BUN 6 L, Creatinine 0.30 L, Estimated Creat Clear 48, Estimated GFR 21
[2021-11-22 14:07] LABS: Chloride 83 mmol/L (98-107); Sodium 128 mmol/L (136-145)
[2021-11-22 14:10] LABS: Alanine Aminotransferase 13 U/L (12-78); Albumin/Globulin Ratio 1.6 (1.1-1.8); Alkaline Phosphatase 113 U/L (38-126); Aspartate Amino Transferase 24 U/L (14-36); Bilirubin,Total 0.6 mg/dl (0.2-1.3); Blood Urea Nitrogen 6 mg/dl (7-17); Creatinine Clearance Estimated 48 mL/min (50-200); Estimated Glomerular Filt Rate 216 ml/min (>60); GFR (African American) 262 ML/MIN (>60); Globulin 2.5 g/dL (1.3-3.2); Total Protein,Serum 6.5 g/dl (6.3-8.2)
[2021-11-22 14:11] LABS: Calcium 8.7 mg/dl (8.4-10.2); Glucose 102 mg/dl (74-100)
[2021-11-22 14:12] LABS: Basophils # 0.1 K/mm3 (0-0.2); Basophils % 1.2 % (0.1-2.0); Eosinophils # 0.2 K/mm3 (0.0-0.4); Eosinophils % 2.1 % (0.1-12.0); Hematocrit 47.1 % (37.0-47.0); Hemoglobin 14.3 g/dL (12.2-16.2); Lymphocytes # 1.2 K/mm3 (0.7-4.5); Lymphocytes % 14.4 % (10-50); Mean Corpuscular HGB Conc 30.4 g/dL (31.8-35.4); Mean Corpuscular Hemoglobin 26.2 pg (27.0-31.2); Mean Corpuscular Volume 86.1 fl (81-99); Mean Platelet Volume 10.6 fl (7.4-10.4); Monocytes # 0.4 K/mm3 (0.1-1.0); Neutrophils # 6.5 K/mm3 (1.8-7.8); Neutrophils % 77.3 % (37.0-80.0); Platelet Count 284 K/mm3 (142-424); Red Blood Count 5.47 M/mm3 (4.20-5.40); Red Cell Distribution Width 14.9 % (11.5-17.5); White Blood Count 8.4 K/mm3 (4.8-10.8)
[2021-11-22 14:20] LABS: Carbon Dioxide 42 mmol/L (22.0-30.0)
[2021-11-22 14:22] LABS: NT Pro Brain Natriuretic Pep. 505 pg/mL (0-450)
[2021-11-22 14:22] LABS: Coronavirus 19, PCR Not Detected (NotDetected); Influenza A, PCR Not Detected (NotDetected); Influenza B, PCR Not Detected (NotDetected)
[2021-11-22 14:27] LABS: Troponin I < 0.01 ng/ml (0.00-0.034)
[2021-11-22 14:32] LABS: Lactic Acid 0.7 mmol/L (0.7-2.1)
[2021-11-22 15:00] LABS: ABG Base Excess 13.1 mmol/L (-2.4-2.3); ABG HCO3 38.6 mmhg (22.0-26.0); ABG Oxygen Saturation 97 % (90-100); ABG PH 7.36 mmol/L (7.35-7.45); ABG PO2 90.9 mmhg (80-100); ABG TCO2 40.8 mmhg (23-27)
[2021-11-22 15:10] LABS: Allen's Test Acceptable; Oxygen 4L %; Source Left Radial
--- NOTE | 2021-11-22 15:20 | CT_ITS ---
PROCEDURE INFORMATION: Exam: CT Head Without Contrast Exam date and time: 11/22/2021 5:34 PM Age: 76 years old Clinical indication: Altered mental status/memory loss; Additional info: AMS TECHNIQUE: Imaging protocol: Computed tomography of the head without contrast. Radiation optimization: All CT scans at this facility use at least one of these dose optimization techniques: automated exposure control; mA and/or kV adjustment per patient size (includes targeted exams where dose is matched to clinical indication); or iterative reconstruction. COMPARISON: MR HEAD/BRAIN WO/W CON 07/02/2021 9:21 AM FINDINGS: Brain: No hemorrhage, mass effect or midline shift. Old lacunar infarction left basal ganglia. Age-related atrophy and chronic white matter ischemic changes, with no evidence of an acute intracranial abnormality. Cerebral ventricles: No ventriculomegaly. Paranasal sinuses: Visualized sinuses are unremarkable. No fluid levels. Mastoid air cells: Visualized mastoid air cells are well aerated. Bones/joints: No acute fracture. Soft tissues: No acute changes IMPRESSION: 1. No hemorrhage, mass effect or midline shift. 2. Age-related atrophy and chronic white matter ischemic changes, with no evidence of an acute intracranial abnormality.
--- NOTE | 2021-11-22 15:20 | CT_ITS ---
PROCEDURE INFORMATION: Exam: CT Abdomen And Pelvis Without Contrast Exam date and time: 11/22/2021 5:43 PM Age: 76 years old Clinical indication: Abdominal pain; vomiting. History of lung cancer TECHNIQUE: Imaging protocol: Computed tomography of the abdomen and pelvis without contrast. Radiation optimization: All CT scans at this facility use at least one of these dose optimization techniques: automated exposure control; mA and/or kV adjustment per patient size (includes targeted exams where dose is matched to clinical indication); or iterative reconstruction. COMPARISON: CT ABDOMEN PELVIS WO/W CON 10/08/2021 10:20 AM FINDINGS: Lungs: Interstitial scarring and surgical changes in the right middle lobe. Calcified left pulmonary granulomas. No acute findings in the visualized lungs. Pleural spaces: A persistent small right pleural effusion, decreased in size compared with 10/08/2021. Heterogeneous density within the fluid which may be due to technical artifact versus complex fluid. No effusion is seen on the left. Minimal calcified pleural plaque on the right. Liver: The liver is normal size. Calcified granuloma. No suspicious mass seen on this nonenhanced exam. Gallbladder and bile ducts: Cholecystectomy clips. Common duct appears slightly dilated up to 1.2 -1.3 cm series 3, image 82 and coronal series 1001 image 38, slightly increased compared with 1 cm on the prior exam. No calcified stones are seen in the duct. No intrahepatic biliary dilatation. Pancreas: Atrophic pancreas. No ductal dilatation. No acute findings. Spleen: No splenomegaly. Multiple tiny calcified granulomas. Adrenal glands: The adrenal glands are normal. Kidneys and ureters: Subcentimeter cysts reported in the left kidney on the previous enhanced study are not well delineated on today's nonenhanced exam. No suspicious renal mass seen on this study requiring follow-up. No hydronephrosis, hydroureter, or definite obstructing calcified ureteral stones. No significant change compared with the prior exam. Stomach and bowel: Severe diverticulosis coli, greatest in the sigmoid, which is carpeted with diverticula including some hyperdense diverticula. A thickened appearance of the sigmoid may be artifact from hypo distension, versus inflammation. No pericolic fluid or extraluminal gas bubbles are seen.There is no evidence of intestinal perforation or obstruction. Some scattered small intestinal air-fluid levels, but no dilated loops or mucosal thickening.The stomach is normal. Appendix: No findings of appendicitis. Intraperitoneal space: There is no free intraperitoneal air. There is no significant free intraperitoneal fluid. Vasculature: There is no aortic aneurysm. The vasculature demonstrates diffuse moderate atherosclerotic calcification. No portal venous gas. Lymph nodes: No significantly enlarged lymph nodes by short axis criteria. Urinary bladder: The bladder is normal. Reproductive: Post hysterectomy. No acute findings, as visualized. Bones/joints: Osteopenia. There is a moderate T9 vertebral compression fracture deformity, which has worsened compared with 10/08/2021, at which time there was a mild chronic appearing wedge deformity; compare sagittal series 1002, image 42 of this exam to sagittal series 605, image 52 of the prior study. No other new fracture or dislocation in the interval. Progressive degenerative changes of the T9-T10 disc in the interval with new vacuum phenomenon. A few chronic tiny sclerotic pelvic lesions, e.g. series 3, image 44 in right sacrum, series 3, image 15 left ischium, which could be benign bone islands rather than blastic metastases, unchanged.There
[2021-11-22 15:26] LABS: ABG PCO2 70.7 mmhg (35.0-45.0)
[2021-11-22 15:38] LABS: Lipase 10 U/L (23-300)
--- NOTE | 2021-11-22 17:00 | PC.NURSE ---
son at bedside
[2021-11-22 17:04] LABS: Troponin I < 0.01 ng/ml (0.00-0.034)
== END 2021-11-22 20:21 | disposition home or self-care (01) ==
PROVIDERS: Emergency Provider Emergency Medicine; PCP Internal Medicine Adolescent Medicine
DX: K57.32 Diverticulitis of large intestine without perforation or abscess without bleeding (principal); J96.12 Chronic respiratory failure with hypercapnia; J96.11 Chronic respiratory failure with hypoxia; C34.90 Malignant neoplasm of unspecified part of unspecified bronchus or lung; M48.54XA Collapsed vertebra, not elsewhere classified, thoracic region, initial encounter for fracture; Z99.81 Dependence on supplemental oxygen; F17.210 Nicotine dependence, cigarettes, uncomplicated; J44.9 Chronic obstructive pulmonary disease, unspecified; Z79.82 Long term (current) use of aspirin; Z79.899 Other long term (current) drug therapy; Z88.0 Allergy status to penicillin; Z88.2 Allergy status to sulfonamides; Z88.8 Allergy status to other drugs, medicaments and biological substances
CPT/HCPCS: 70450; 71045; 74176; 80053; 82803; 83605; 83690; 83880; 84484; 85025; 87040; 93005; 96374; 99284; C9803; U0003; U0005

== ENCOUNTER 2021-11-28 11:14 | Outpatient (CLI) | payer MEDICARE, SELFPAY ==
[2021-11-28 11:26] VITALS: BMI 27.5
[2021-11-28 11:53] LABS: Chloride 89 mmol/L (98-107); Potassium 3.4 mmoL/L (3.5-5.1); Sodium 130 mmol/L (136-145)
[2021-11-28 11:54] LABS: Basophils # 0.1 K/mm3 (0-0.2); Basophils % 0.8 % (0.1-2.0); Eosinophils # 0.8 K/mm3 (0.0-0.4); Eosinophils % 8.8 % (0.1-12.0); Hematocrit 40.4 % (37.0-47.0); Hemoglobin 12.7 g/dL (12.2-16.2); Lymphocytes # 2.3 K/mm3 (0.7-4.5); Lymphocytes % 26.5 % (10-50); Mean Corpuscular HGB Conc 31.3 g/dL (31.8-35.4); Mean Corpuscular Hemoglobin 25.8 pg (27.0-31.2); Mean Corpuscular Volume 82.5 fl (81-99); Mean Platelet Volume 9.5 fl (7.4-10.4); Monocytes # 0.7 K/mm3 (0.1-1.0); Monocytes % 7.9 % (1.7-9.3); Neutrophils # 4.8 K/mm3 (1.8-7.8); Platelet Count 209 K/mm3 (142-424); Red Cell Distribution Width 13.9 % (11.5-17.5); White Blood Count 8.6 K/mm3 (4.8-10.8)
[2021-11-28 11:55] LABS: Alanine Aminotransferase 14 U/L (12-78); Aspartate Amino Transferase 29 U/L (14-36); Bilirubin,Total 0.2 mg/dl (0.2-1.3); Blood Urea Nitrogen 12 mg/dl (7-17); Creatinine Clearance Estimated 48 mL/min (50-200); Estimated Glomerular Filt Rate 155 ml/min (>60); GFR (African American) 188 ML/MIN (>60)
[2021-11-28 11:56] LABS: Albumin Level 3.7 g/dl (3.5-5.0); Albumin/Globulin Ratio 1.6 (1.1-1.8); Alkaline Phosphatase 100 U/L (38-126); Calcium 8.4 mg/dl (8.4-10.2); Globulin 2.3 g/dL (1.3-3.2); Glucose 98 mg/dl (74-100)
[2021-11-28 12:02] LABS: Anion Gap 5.4 mEq/L (5-15); Carbon Dioxide 39 mmol/L (22.0-30.0)
[2021-11-28 12:59] VITALS: BP 122/82; PULSE 69; RESP 18; TEMP 36.4; O2SAT 97
[2021-11-28 13:29] VITALS: BP 119/87; PULSE 75; RESP 18; O2SAT 97
[2021-11-28 14:00] VITALS: BP 124/77; PULSE 78; RESP 18; O2SAT 98
[2021-11-28 16:24] LABS: Thyroid Stimulating Hormone 2.32 uIU/mL (0.465-4.68)
== END 2021-11-28 14:00 | disposition home or self-care (01) ==
LOC: INF 11:16
PROVIDERS: PCP Internal Medicine Adolescent Medicine; Visit Provider Internal Medicine Medical Oncology
DX: Z51.11 Encounter for antineoplastic chemotherapy (principal); C34.91 Malignant neoplasm of unspecified part of right bronchus or lung; Z79.899 Other long term (current) drug therapy
CPT/HCPCS: 80053; 84443; 85025; 96413; J9271

== ENCOUNTER 2021-12-19 09:35 | Outpatient (CLI) | payer MEDICARE, SELFPAY ==
[2021-12-19 09:41] VITALS: BMI 27.5
[2021-12-19 10:07] LABS: Basophils # 0.1 K/mm3 (0-0.2); Eosinophils # 0.7 K/mm3 (0.0-0.4); Eosinophils % 10.3 % (0.1-12.0); Hematocrit 41.5 % (37.0-47.0); Hemoglobin 12.9 g/dL (12.2-16.2); Lymphocytes # 1.5 K/mm3 (0.7-4.5); Lymphocytes % 22.4 % (10-50); Mean Corpuscular HGB Conc 31.1 g/dL (31.8-35.4); Mean Corpuscular Hemoglobin 25.8 pg (27.0-31.2); Mean Platelet Volume 10.3 fl (7.4-10.4); Monocytes # 0.4 K/mm3 (0.1-1.0); Monocytes % 6.5 % (1.7-9.3); Neutrophils # 3.9 K/mm3 (1.8-7.8); Neutrophils % 59.9 % (37.0-80.0); Platelet Count 230 K/mm3 (142-424); Red Blood Count 5.01 M/mm3 (4.20-5.40); Red Cell Distribution Width 13.4 % (11.5-17.5); White Blood Count 6.5 K/mm3 (4.8-10.8)
[2021-12-19 10:21] LABS: Chloride 88 mmol/L (98-107); Potassium 3.5 mmoL/L (3.5-5.1); Sodium 129 mmol/L (136-145)
[2021-12-19 10:23] LABS: Blood Urea Nitrogen 9 mg/dl (7-17); Creatinine Clearance Estimated 48 mL/min (50-200); Estimated Glomerular Filt Rate 155 ml/min (>60); GFR (African American) 188 ML/MIN (>60)
[2021-12-19 10:24] LABS: Alanine Aminotransferase 12 U/L (12-78); Albumin Level 4.1 g/dl (3.5-5.0); Albumin/Globulin Ratio 1.6 (1.1-1.8); Alkaline Phosphatase 88 U/L (38-126); Anion Gap 4.5 mEq/L (5-15); Aspartate Amino Transferase 27 U/L (14-36); Bilirubin,Total 0.3 mg/dl (0.2-1.3); Carbon Dioxide 40 mmol/L (22.0-30.0); Globulin 2.6 g/dL (1.3-3.2); Total Protein,Serum 6.7 g/dl (6.3-8.2)
[2021-12-19 10:25] LABS: Calcium 9.3 mg/dl (8.4-10.2); Glucose 108 mg/dl (74-100)
[2021-12-19 10:55] LABS: Thyroid Stimulating Hormone 1.76 uIU/mL (0.465-4.68)
[2021-12-19 11:15] VITALS: BP 158/65; PULSE 63; RESP 20; TEMP 36.4; O2SAT 100
[2021-12-19 12:05] VITALS: BP 149/68; PULSE 69; RESP 20; O2SAT 99
[2021-12-20 13:13] LABS: Adrenocorticotropic Hormone 22.9 pg/mL (7.2-63.3)
== END 2021-12-19 12:31 | disposition home or self-care (01) ==
LOC: INF 09:36
PROVIDERS: PCP Internal Medicine Adolescent Medicine; Visit Provider Internal Medicine Medical Oncology
DX: Z51.11 Encounter for antineoplastic chemotherapy (principal); C34.90 Malignant neoplasm of unspecified part of unspecified bronchus or lung; Z79.899 Other long term (current) drug therapy
CPT/HCPCS: 80053; 82024; 82533; 84443; 85025; 96413; J9271

== ENCOUNTER → 2022-01-02 08:53 | Outpatient (CLI) | payer MEDICARE, SELFPAY ==
--- NOTE | 2022-01-02 | CT_ITS ---
FINAL REPORT TECHNIQUE: After the administration of intravenous contrast, axial images through the chest were performed by computed tomography.This study was performed with techniques to keep radiation doses as low as reasonably achievable, (ALARA). Individualized dose reduction techniques using automated exposure control or adjustment of mA and/or kV according to the patient''s size were employed. CLINICAL HISTORY: LUNG CANCER FOLLOW-UP COMPARISON: 10/08/2021 FINDINGS: Precarinal node measures 12 mm, previously measured 14 mm. No new mediastinal or hilar mass is identified. There are small axillary nodes which are stable. There are small bilateral thyroid nodules which are nonspecific. The heart size is normal. There is moderate emphysema and mild scarring. There is a spiculated, left upper lobe nodule measuring 14 mm, previously measured 7 mm consistent with worsening neoplastic involvement. There are postoperative changes in the right middle lobe. There is an 11 mm spiculated opacity in the right lung base of uncertain etiology, may represent scar. Small right effusion is identified. There is a left lower lobe nodule measuring 6 mm, previously measured 6 mm. There are moderate, T8 and T9 compression fractures which are new with sclerosis worrisome for bony metastatic disease with pathologic fractures. There is a chronic T5 compression fracture, stable. IMPRESSION: Worsening left upper lobe nodule consistent with worsening neoplastic involvement. T8 and T9 new compression fractures, likely pathologic fractures. Slightly improved precarinal adenopathy. Nonspecific bilateral thyroid nodules. If indicated, consider follow-up ultrasound. Reviewed, Interpreted and Dictated by Abdias Love III, MD Transcribed by Carol Mireles Authenticated and [facility]
--- NOTE | 2022-01-02 08:56 | CT_ITS ---
FINAL REPORT TECHNIQUE: After the administration of oral and intravenous contrast, axial images were obtained through the abdomen and pelvis by computed tomography. The study was performed with techniques to keep radiation dose as low as reasonably achievable, (ALARA). Individual dose reduction techniques using automated exposure control or adjustment of mA and/or kV according to the patient's size were employed. CLINICAL HISTORY: LUNG CANCER FOLLOW-UP COMPARISON: 11/22/2021 FINDINGS: Abdomen: T no hepatic mass is identified. The patient is status post cholecystectomy. There is mild biliary ductal dilatation, favor post cholecystectomy change. The spleen is unremarkable. There is mild adrenal gland enlargement, favor hyperplasia or adenoma. The pancreas is unremarkable. There are less than 1 cm left renal masses consistent with cysts. Note is made of moderate vascular calcification. The aorta is normal in caliber. There is no free fluid or adenopathy. Pelvis: The appendix is not identified. There is descending and sigmoid diverticulosis. The patient is status post hysterectomy. The urinary bladder is unremarkable. There is no free fluid or adenopathy. There are several small sclerotic foci in the bony skeleton which are stable, may represent bone islands. In addition, there is an 8 mm sclerotic focus in the medial left iliac bone well seen on image # 71 . This appears new and is worrisome for bony metastases. IMPRESSION: New, sclerotic focus in the medial left iliac bone worrisome for bony metastases. Reviewed, Interpreted and Dictated by Abdias Love III, MD Transcribed by Carol Mireles Authenticated and [facility]
== END ==
PROVIDERS: PCP Internal Medicine Adolescent Medicine; Visit Provider Internal Medicine Medical Oncology
DX: C34.91 Malignant neoplasm of unspecified part of right bronchus or lung (principal)
CPT/HCPCS: 71260; 74177; Q9967

== ENCOUNTER 2022-01-09 09:41 | Outpatient (CLI) | payer MEDICARE, SELFPAY ==
[2022-01-09 09:54] VITALS: BMI 26.9
[2022-01-09 10:17] LABS: Basophils # 0.1 K/mm3 (0-0.2); Basophils % 0.8 % (0.1-2.0); Eosinophils # 0.6 K/mm3 (0.0-0.4); Eosinophils % 9.1 % (0.1-12.0); Hematocrit 42.3 % (37.0-47.0); Hemoglobin 12.7 g/dL (12.2-16.2); Lymphocytes # 1.3 K/mm3 (0.7-4.5); Mean Corpuscular Hemoglobin 25.5 pg (27.0-31.2); Mean Corpuscular Volume 84.7 fl (81-99); Mean Platelet Volume 10.8 fl (7.4-10.4); Monocytes # 0.4 K/mm3 (0.1-1.0); Monocytes % 6.9 % (1.7-9.3); Neutrophils # 4.1 K/mm3 (1.8-7.8); Neutrophils % 63.2 % (37.0-80.0); Platelet Count 191 K/mm3 (142-424); Red Blood Count 4.99 M/mm3 (4.20-5.40); Red Cell Distribution Width 13.6 % (11.5-17.5); White Blood Count 6.5 K/mm3 (4.8-10.8)
[2022-01-09 10:24] LABS: Chloride 90 mmol/L (98-107); Potassium 3.7 mmoL/L (3.5-5.1); Sodium 132 mmol/L (136-145)
[2022-01-09 10:26] LABS: Alanine Aminotransferase 12 U/L (12-78); Aspartate Amino Transferase 25 U/L (14-36); Blood Urea Nitrogen 10 mg/dl (7-17); Creatinine Clearance Estimated 47 mL/min (50-200); Estimated Glomerular Filt Rate 120 ml/min (>60); GFR (African American) 145 ML/MIN (>60)
[2022-01-09 10:27] LABS: Albumin/Globulin Ratio 1.7 (1.1-1.8); Alkaline Phosphatase 62 U/L (38-126); Bilirubin,Total 0.2 mg/dl (0.2-1.3); Globulin 2.3 g/dL (1.3-3.2); Glucose 105 mg/dl (74-100); Total Protein,Serum 6.3 g/dl (6.3-8.2)
[2022-01-09 10:44] LABS: Anion Gap 4.7 mEq/L (5-15); Carbon Dioxide 41 mmol/L (22.0-30.0)
== END 2022-01-09 11:15 | disposition home or self-care (01) ==
LOC: INF 09:42
PROVIDERS: PCP Internal Medicine Adolescent Medicine; Visit Provider Internal Medicine Medical Oncology
DX: C34.90 Malignant neoplasm of unspecified part of unspecified bronchus or lung (principal); Z79.899 Other long term (current) drug therapy
CPT/HCPCS: 36415; 80053; 82024; 82533; 84443; 85025